=== PATIENT | female | born 1945 | race Caucasian/White ===

== ENCOUNTER 2018-02-16 11:59 | Emergency (ER) | payer MEDICARE ==
[2018-02-16] MEDS ORDERED: Sodium Chloride 0.9% 10 ML Syringe FLUSH PRN (13:16)
[2018-02-16] MEDS ORDERED: Sodium Chloride 0.9% 1,000 ML IV ONE (13:16)
--- NOTE | 2018-02-16 13:29 | EDM.PDOC ---
ED HPI GENERAL MEDICAL PROBLEM - General Chief Complaint: Back Pain or Injury Stated Complaint: FALL/ BACK PAIN Time Seen by Provider: 02/16/18 12:45 Source of Information: Reports: Patient History Limitations: Reports: No Limitations - History of Present Illness INITIAL COMMENTS - FREE TEXT/NARRATIVE: Patient is a 72-year-old female who states she fell 4 days ago while drinking water in her kitchen. States she briefly closed her eyes and lost her balance. She fell backwards onto the floor injuring her back. She states their was no loss of consciousness. No neck/head pain. Pain to her back is located to the lumbar spine. Pain is localized with no radiation. No numbness or tingling distally. No incontinence to urine or stool. No sensory changes noted. Patient ambulated into the ED on her own accord. Pain has persisted with no relief. Patient does not recall all the medications she is currently on. She does have a history of hypertension, [place] with stent placement, pacemaker, chronic constipation, and diabetes. She has no history of blood clots to legs or lungs. She does have a history of peripheral vascular disease with stents placement as well. She denies any sob, headache, midline cervical neck pain, vision changes, slurred speech, difficult swallowing, weakness discrepancy to the upper and lower extremities, sensory deficits, increased swelling to her lower extremities , shortness of breath, chest pain, dark tarry stools, dysuria, fever, or any additional complaints. She states she is chronically constipated and has not had a bowel movement for 2 weeks. Lower Back Pain Score (Numeric/FACES): 10 - Related Data Allergies Allergy/AdvReac Type Severity Reaction Status Date / Time No Known Allergies Allergy Verified 02/16/18 12:28 Home Meds: Home Meds Cephalexin [Keflex] 500 mg PO QID #28 capsule 02/16/18 [Rx] Clopidogrel [Plavix] 75 mg PO DAILY 02/16/18 [History] Gabapentin [Neurontin] 300 mg PO TID PRN 02/16/18 [History] Lisinopril 5 mg PO DAILY 02/16/18 [History] Potassium Chloride 10 meq PO DAILY 02/16/18 [History] atorvaSTATin Calcium [Lipitor] 20 mg PO DAILY 02/16/18 [History] glyBURIDE [Glyburide] 5 mg PO BID #30 tablet 09/22/18 [Rx] metFORMIN [Glucophage XR] 500 mg PO BID #60 tab.er 02/16/18 [Rx] oxyCODONE HCl/Acetaminophen [Percocet 5-325 mg Tablet] 1 each PO QID PRN #20 tablet 02/16/18 [Rx] Past Medical History Cardiovascular History: Reports: High Cholesterol, Hypertension, [place], Pacemaker, Stents Gastrointestinal History: Reports: Chronic Constipation Genitourinary History: Reports: UTI, Recurrent Musculoskeletal History: Reports: Arthritis, Back Pain, Chronic Psychiatric History: Reports: Depression - Past Surgical History GI Surgical History: Reports: Cholecystectomy Musculoskeletal Surgical History: Reports: ORIF Other Musculoskeletal Surgeries/Procedures:: left hip Social & Family History - Tobacco Use Smoking Status *Q: Former Smoker Years of Tobacco use: 50 Used Tobacco, but Quit: Yes Month/Year Tobacco Last Used: 4 days - Caffeine Use Caffeine Use: Reports: Coffee, Soda, Tea - Recreational Drug Use Recreational Drug Use: No ED ROS GENERAL - Review of Systems Review Of Systems: ROS reveals no pertinent complaints other than HPI. Constitutional: Reports: No Symptoms HEENT: Reports: No Symptoms Respiratory: Denies: Shortness of Breath, Wheezing, Pleuritic Chest Pain, Cough , Sputum, Hemoptysis Cardiovascular: Reports: Blood Pressure Problem, Lightheadedness, Syncope. Denies: Chest Pain, Claudication, Dyspnea on Exertion, Orthopnea, Palpitations, PND GI/Abdominal: Denies: Abdominal Pain, Black Stool, Bloody Stool, Constipation, Diarrhea, Decreased Appetite, Distension, Flatus, Hematemesis, Hematochezia, Melena, Nausea, Vomiting : Reports: No Symptoms Musculoskeletal: Reports: Other (Low back pain secondary to recent fall.) Skin: Reports: No Symptoms Neurological: Reports: Dizziness (With standing and closing her eyes.). Denies : Confusion, Headache, Numbness, Paresthesia, Pre-Existing Deficit, Seizure, Syncope, Tingling, Tremors, Trouble Speaking, Difficulty Walking, Weakness, Gait Disturbance Psychiatric: Reports: No Symptoms ED EXAM, DIZZINESS - Physical Exam Exam: See Below Exam Limited By: No Limitations General Appearance: Alert, WD/WN, Mild Distress Eye Exam: Bilateral Eye: EOMI, Nystagmus (None noted), PERRL, Vision Changes ( None noted per patient) Ears: Normal External Exam, Normal Canal Nose: Normal Inspection, Normal Mucosa, No Blood Throat/Mouth: Normal Inspection, Normal Oropharynx, Normal Voice, No Airway Compromise Head Exam: Atraumatic, Normocephalic Neck: Normal Inspection, Supple, Non-Tender, Full Range of Motion. No: Lymphadenopathy (L), Lymphadenopathy (R) Respiratory/Chest: No Respiratory Distress, Lungs Clear, Normal Breath Sounds, No Accessory Muscle Use, Chest Non-Tender Cardiovascular: Normal Peripheral Pulses, Regular Rate, Rhythm, No Murmur GI/Abdominal: Normal Bowel Sounds, Soft, Non-Tender, No Organomegaly, No Distention Rectal (Female) Exam: Heme + Stool (very light positive. ), Hemorrhoids. No: Black Stool, Bloody Stool, Decreased Rectal Tone, Fecal Impaction Neurological: Alert, Normal Mood/Affect, Normal Dorsiflexion, CN II-XII Intact, No Motor/Sensory Deficits, Oriented x 3 Back Exam: Normal Inspection, Vertebral Tenderness (Lumbar spine L4-S1.) Extremities: Normal Inspection, Normal Range of Motion, Non-Tender, No Pedal Edema, Normal Capillary Refill Psychiatric: Normal Affect, Normal Mood Skin Exam: Warm, Dry, Intact, Normal Color Course - Vital Signs Last Recorded V/S: Last Vital Signs Temp 96.4 F 02/16/18 12:23 Pulse 86 02/16/18 12:23 Resp 20 02/16/18 12:23 BP 86/59 L 02/16/18 12:23 Pulse Ox 95 02/16/18 12:23 Orthostatic Blood Pressure [ 112/74 Standing] Orthostatic Blood Pressure [ 151/82 Sitting] - Orders/Labs/Meds Orders: Active Orders 24 hr Category Date Time Status Blood Glucose Check, Bedside [RC] ONETIME Care 02/16/18 17:19 Active Communication Order [RC] STAT Care 02/16/18 15:45 Active EKG Documentation Completion [RC] STAT Care 02/16/18 13:16 Active Glucose [Blood Glucose Check, Bedside] [RC] ONETIME Care 02/16/18 15:42 Active Peripheral IV Care [RC] . DIRECTED Care 02/16/18 13:16 Active Head wo Cont [CT] Stat Exams 02/16/18 13:14 Taken Lumbar Spine Min 4V [CR] Stat Exams 02/16/18 13:14 Taken CULTURE URINE [RM] Stat Lab 02/16/18 15:05 Received Peripheral IV Insertion Adult [OM.PC] Routine Oth 02/16/18 13:16 Ordered Labs: Laboratory Tests 02/16/18 02/16/18 02/16/18 Range/Units 13:50 13:50 13:50 WBC 8.04 (3.98-10.04) K/mm3 RBC 4.90 (3.98-5.22) M/mm3 Hgb 14.3 (11.2-15.7) gm/L Hct 40.1 (34.1-44.9) % MCV 81.8 (79.4-94.8) fl MCH 29.2 (25.6-32.2) pg MCHC 35.7 H (32.2-35.5) g/dl RDW Std Deviation 36.7 (36.4-46.3) fL Plt Count 154 L (182-369) K/mm3 MPV 11.0 (9.4-12.3) fl Neutrophils % (Manual) 81 H (40-60) % Band Neutrophils % 0 (0-10) % Lymphocytes % (Manual) 17 L (20-40) % Atypical Lymphs % 0 % Monocytes % (Manual) 1 L (2-10) % Eosinophils % (Manual) 1 (0.7-5.8) % Basophils % (Manual) 0 L (0.1-1.2) Platelet Estimate Adequate Plt Morphology Comment Normal RBC Morph Comment Normal PT 10.5 (9.5-12.1) SECONDS INR 0.96 APTT 25 (24-31) SECONDS Sodium 131 L (136-145) mEq/L Potassium 3.4 L (3.5-5.1) mEq/L Chloride 93 L (98-107) mEq/L Carbon Dioxide 30 (21-32) mEq/L Anion Gap 11.4 (5-15) BUN 32 H (7-18) mg/dL Creatinine 1.2 H (0.55-1.02) mg/dL Est Cr Clr Drug Dosing 44.00 mL/min Estimated GFR (MDRD) 44 (>60) mL/min BUN/Creatinine Ratio 26.7 H (14-18) Glucose 415 H (80-115) mg/dL Calcium 9.0 (8.5-10.1) mg/dL Total Bilirubin 0.9 (0.2-1.0) mg/dL AST 23 (15-37) U/L ALT 25 (14-59) U/L Alkaline Phosphatase 100 (46-116) U/L Troponin I < 0.017 (0.00-0.056) ng/mL C-Reactive Protein 10.5 H* (<1.0) mg/dL Total Protein 7.3 (6.4-8.2) g/dl Albumin 3.4 (3.4-5.0) g/dl Globulin 3.9 gm/dL Albumin/Globulin Ratio 0.9 L (1-2) Urine Color (Yellow) Urine Appearance (Clear) Urine pH (5.0-8.0) Ur Specific [place] (1.005-1.030) Urine Protein (Negative) Urine Glucose (UA) (Negative) Urine Ketones (Negative) Urine Occult Blood (Negative) Urine Nitrite (Negative) Urine Bilirubin (Negative) Urine Urobilinogen (0.2-1.0) Ur Leukocyte Esterase (Negative) Urine RBC (0-5) /hpf Urine WBC (0-5) /hpf Ur Epithelial Cells (0-5) /hpf Urine Bacteria (FEW) /hpf Urine Mucus (FEW) /hpf Blood Type Gel Antibody Screen 02/16/18 02/16/18 02/16/18 Range/Units 13:50 15:05 17:10 WBC (3.98-10.04) K/mm3 RBC (3.98-5.22) M/mm3 Hgb (11.2-15.7) gm/L Hct (34.1-44.9) % MCV (79.4-94.8) fl MCH (25.6-32.2) pg MCHC (32.2-35.5) g/dl RDW Std Deviation (36.4-46.3) fL Plt Count (182-369) K/mm3 MPV (9.4-12.3) fl Neutrophils % (Manual) (40-60) % Band Neutrophils % (0-10) % Lymphocytes % (Manual) (20-40) % Atypical Lymphs % % Monocytes % (Manual) (2-10) % Eosinophils % (Manual) (0.7-5.8) % Basophils % (Manual) (0.1-1.2) Platelet Estimate Plt Morphology Comment RBC Morph Comment PT (9.5-12.1) SECONDS INR APTT (24-31) SECONDS Sodium (136-145) mEq/L Potassium (3.5-5.1) mEq/L Chloride (98-107) mEq/L Carbon Dioxide (21-32) mEq/L Anion Gap (5-15) BUN (7-18) mg/dL Creatinine (0.55-1.02) mg/dL Est Cr Clr Drug Dosing mL/min Estimated GFR (MDRD) (>60) mL/min BUN/Creatinine Ratio (14-18) Glucose 327 H (80-115) mg/dL Calcium (8.5-10.1) mg/dL Total Bilirubin (0.2-1.0) mg/dL AST (15-37) U/L ALT (14-59) U/L Alkaline Phosphatase (46-116) U/L Troponin I (0.00-0.056) ng/mL C-Reactive Protein (<1.0) mg/dL Total Protein (6.4-8.2) g/dl Albumin (3.4-5.0) g/dl Globulin gm/dL Albumin/Globulin Ratio (1-2) Urine Color Yellow (Yellow) Urine Appearance Slt cloudy H (Clear) Urine pH 6.0 (5.0-8.0) Ur Specific [place] 1.015 (1.005-1.030) Urine Protein Negative (Negative) Urine Glucose (UA) 2+ H (Negative) Urine Ketones Trace H (Negative) Urine Occult Blood 1+ H (Negative) Urine Nitrite Negative (Negative) Urine Bilirubin Negative (Negative) Urine Urobilinogen 0.2 (0.2-1.0) Ur Leukocyte Esterase Trace H (Negative) Urine RBC 0-5 (0-5) /hpf Urine WBC 20-30 H (0-5) /hpf Ur Epithelial Cells 0-5 (0-5) /hpf Urine Bacteria Many H (FEW) /hpf Urine Mucus Not seen (FEW) /hpf Blood Type A POSITIVE Gel Antibody Screen Negative Meds: Medications Discontinued Medications Generic Name Dose Route Start Last Admin Trade Name Freq PRN Reason Stop Dose Admin Cephalexin 500 mg 02/16/18 15:45 02/16/18 16:02 Keflex PO 02/16/18 15:46 500 mg ONETIME ONE Administration Hydromorphone HCl 0.25 mg 02/16/18 17:02 02/16/18 17:12 Dilaudid IVPUSH 02/16/18 17:03 0.25 mg ONETIME ONE Administration Sodium Chloride 1,000 mls @ 500 mls/hr 02/16/18 13:16 02/16/18 13:51 Normal Saline IV 02/16/18 15:15 500 mls/hr ONETIME ONE Administration Ceftriaxone Sodium 1 gm/ 100 mls @ 200 mls/hr 02/16/18 15:44 02/16/18 16:02 Sodium Chloride IV 02/16/18 16:13 200 mls/hr ONETIME ONE Administration Sodium Chloride 10 ml 02/16/18 13:16 02/16/18 13:52 Saline Flush FLUSH 10 ml ASDIRECTED PRN Administration Keep Vein Open - Re-Assessments/Exams Free Text/Narrative Re-Assessment/Exam: IV will be established with NS fluid bolus. Initial labs and studies will include: CBC, chem 14, CRP, coag study, troponin, type and screen, UA, chest x-ray one view, head CT without, lumbar spine x-ray, and EKG. Vital signs with sitting indicated blood pressure 81/66 with a heart rate 82. With laying flat blood pressure 154/73 with heart rate of 82. SPO2 90%. Stool Hemoccult test was faintly positive. Patient does have a pacemaker to the left chest. Unclear type and many leads are present. Pacemaker was placed at [facility]. Suspect type of pacemaker is [employer]. Will attempt to interrogate. EKG sinus rhythm at a rate of [address] changes noted. Head CT impression: There is parenchymal volume loss consistent with patient's age. Also demonstrated are mild white matter changes in the subcortical, central semiovale, and periventricular white matter consistent with age related small vessel microangiopathic gliosis. X-ray of the lumbar spine reveals some degenerative changes. No obvious compression fractures noted. Reviewed with Dr. Brizuela. Final interpretation is pending. Blood pressure rechecked by nursing staff. Sitting patient's blood pressures 151 /82. Standing blood pressure 112/74. She has no symptoms. Heart rate within normal limits. UA came back positive for infection. Urine culture obtained. Labs reviewed: platelets 154, hemoglobin 14.3, sodium 131, potassium 3.4, creatinine 1.2, glucose 4:15, troponin less than 0.017, CRP 10.5. I have ordered a bedside glucose following IV fluids. I ordered dilaudid 0.25mg IVP for pain. CT lumbar spine impression: Acute compression deformity of L2. No retrolisthesis fragments or extension of fracture into posterior vertebral line or posterior elements are seen. Compression deformity of L1 which appears to be old. Degenerative changes noted above which is most significant finding at L4 and L5 with moderate to severe central canal stenosis. Discussed labs and CT results with patient. Pain has improved with the above therapy. Lumbosacral brace has been ordered. Will wait for bedside glucose results prior to discharge. Blood sugar on discharge is 327. Discharge instructions as documented. The patient remained hemodynamically stable while under my care in the E.D. I discussed the concerning symptoms for which to return to the E.D. with the patient/family. The patient/family verbalized understanding. All questions were answered. . Departure - Departure Time of Disposition: 17:31 Disposition: Home, Self-Care 01 Condition: Good Clinical Impression: Intravascular volume depletion, Hypokalemia Hyperglycemia due to type 2 diabetes mellitus Qualifiers: Diabetes mellitus skilled nursing insulin use: without skilled nursing use Qualified Code(s ): E11.65 - Type 2 diabetes mellitus with hyperglycemia UTI (urinary tract infection) Qualifiers: Urinary tract infection type: acute cystitis Hematuria presence: with hematuria Qualified Code(s): N30.01 - Acute cystitis with hematuria Compression fracture of lumbar vertebra Qualifiers: Encounter type: initial encounter Lumbar vertebra fracture level: L2 Fracture type: closed Qualified Code(s): S32.020A - Wedge compression fracture of second lumbar vertebra, initial encounter for closed fracture - Discharge Information Prescriptions: Cephalexin [Keflex] 500 mg PO QID #28 capsule glyBURIDE [Glyburide] 5 mg PO BID #30 tablet metFORMIN [Glucophage XR] 500 mg PO BID #60 tab.er oxyCODONE HCl/Acetaminophen [Percocet 5-325 mg Tablet] 1 each PO QID PRN #20 tablet PRN Reason: Pain (Severe 7-10) Instructions: High-Fiber Diet, Vertebral Fracture, Type 2 Diabetes Mellitus, Diagnosis, Adult, Antibiotic Medicine, Adult, [id number], Hyperglycemia, Easy- to-Read, Urinary Tract Infection, Adult, Pain Medicine Instructions, Easy-to- Read, Dehydration, Elderly, [id number] Referrals: Alejo,David D, DO [Primary Care Provider] - Forms: ED Department Discharge Additional Instructions: Please restart all diabetes medications as prescribed. Check her blood sugars twice a day. Keep a log. In addition your quite dehydrated with admission to the ED. I believe this may be associated with taking Lasix 80 mg every day with poor oral intake of fluids, increased frequency of urination 2nd to infection and elevated blood sugars. I suggest decreasing lasix to 80 mg every other day. Take 1/2 of lasix in between days until sugars normalize. Ensure adequate fluid intake. In addition CT of the lumbar spine found that you have a acute fracture to L2. Thus where the lumbosacral brace as directed. May take Percocet 1 tab every 6 hours as needed for pain. Start taking MiraLAX one capful every day with juice along with other stool softeners. Please follow up with her PCP this coming week for reevaluation. I suggest make an appointment with to discuss kyphoplasty and or neurosurgeon of your choice. No driving with taking pain medications. Please return back to ED if you develop any new or worsening symptoms. Recheck of urine to be obtained after completion of antibiotic to ensure resolution of infection. In addition stool was faintly positive for blood. Please see PCP for reevaluation to ensure resolution and further workup as needed. - My Orders Last 24 Hours: My Active Orders 02/16/18 13:14 Head wo Cont [CT] Stat Lumbar Spine Min 4V [CR] Stat 02/16/18 13:16 EKG Documentation Completion [RC] STAT Peripheral IV Care [RC] . DIRECTED Peripheral IV Insertion Adult [OM.PC] Routine 02/16/18 15:05 CULTURE URINE [RM] Stat 02/16/18 15:42 Glucose [Blood Glucose Check, Bedside] [RC] ONETIME 02/16/18 15:45 Communication Order [RC] STAT 02/16/18 17:19 Blood Glucose Check, Bedside [RC] ONETIME - Assessment/Plan Last 24 Hours: My Active Orders 02/16/18 13:14 Head wo Cont [CT] Stat Lumbar Spine Min 4V [CR] Stat 02/16/18 13:16 EKG Documentation Completion [RC] STAT Peripheral IV Care [RC] . DIRECTED Peripheral IV Insertion Adult [OM.PC] Routine 02/16/18 15:05 CULTURE URINE [RM] Stat 02/16/18 15:42 Glucose [Blood Glucose Check, Bedside] [RC] ONETIME 02/16/18 15:45 Communication Order [RC] STAT 02/16/18 17:19 Blood Glucose Check, Bedside [RC] ONETIME
[2018-02-16] MEDS ORDERED: cefTRIAXone 1 GM in Sodium Chloride 0.9% 100 ML IV ONE (15:44)
[2018-02-16] MEDS ORDERED: Cephalexin 500 MG Cap PO ONE (15:45)
--- NOTE | 2018-02-16 16:58 | CT ---
Little earlier CT lumbar spine Technique: Multiple axial sections were obtained from above the T11-12 disc inferiorly to the L5-S1 disc. Reconstructed coronal and sagittal images were obtained. Comparison: No prior CT exam, previous plain film lumbar spine study performed earlier on the same day (1:21 PM). Findings: Superior compression deformity is seen within the endplate of L1 which appears to be old. Endplate concavities with compression deformity is noted of L2 which appears acute with acute fracture lines being seen within the vertebral body. No extension of fracture lines into the posterior vertebral line or within the posterior elements is seen. No retrolisthesis fragments are seen. Other vertebral body heights are maintained without additional fracture. Scattered degenerative apophyseal change is seen most severe at L4-5. Degenerative change at L4-5 causes mild spondylolisthesis. Diffuse circumferential disc bulging is seen throughout lumbar spine. Disc bulge at L4-5 in conjunction with thickening of ligamentum flavum causes moderate to severe central canal stenosis. No discrete neural foraminal stenosis is seen. Incidental vacuum phenomena noted within the sacroiliac joints. Impression: 1. Acute compression deformity of L2. No retrolisthesis fragments or extension of the fracture into the posterior vertebral line or posterior elements are seen. 2. Compression deformity of L1 which appears to be old. 3. Degenerative change as noted above which is most significant finding at L4-5 with moderate to severe central canal stenosis. Diagnostic code #3
[2018-02-16] MEDS ORDERED: HYDROmorphone 0.5 MG/0.5 ML SYRINGE IVPUSH ONE (17:02)
--- NOTE | 2018-02-18 07:15 | CT ---
Head CT Technique: Multiple axial sections through the brain were obtained. Intravenous contrast was not utilized. Comparison: No prior intracranial imaging. Findings: Ventricles along with basal cisterns and sulci over the convexities are moderately prominent. Mild diminished density is noted within portions of the periventricular white matter which is compatible with small vessel ischemic demyelination change. 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 No other abnormal parenchymal densities are seen. No evidence of intracranial hemorrhage. No midline shift or mass effect is seen. Bone window settings were reviewed which show the visualized sinuses to appear clear. No acute calvarial abnormality is appreciated. Impression: 1. Senescent change as noted above. No acute intracranial abnormality is identified. Diagnostic code #2 I agree with preliminary report from [facility], finalized on 02/16/18, 3:22 PM Central Time
--- NOTE | 2018-02-18 07:15 | CR ---
Lumbar spine: AP, lateral, oblique and coned-down lateral views centered to the lumbosacral junction were obtained. Comparison: No prior lumbar spine imaging. Compression deformity is seen primarily within the superior endplate of L1. This appears old on subsequent lumbar spine CT study. Compression deformity also noted within L2 involving both superior and inferior endplates. This is acute as seen on subsequent lumbar spine CT exam. Other vertebral body heights are maintained. Minimal spondylolisthesis is noted at L4-L5 due to degenerative apophyseal change. Degenerative change also noted within the L3-L4 and L5-S1 apophyseal joints. No abnormal subluxation is seen. Vascular calcification is noted within the aorta. Impression: 1. Old compression deformity of L1. Acute compression deformity of L2. 2. Degenerative change as noted above. Diagnostic code #3
== END 2018-02-16 18:10 | disposition home or self-care (01) ==
LOC: JD.ED 11:59
DX: S32.029A Unspecified fracture of second lumbar vertebra, initial encounter for closed fracture (principal); N30.01 Acute cystitis with hematuria; B96.20 Unspecified Escherichia coli [E. coli] as the cause of diseases classified elsewhere; E87.6 Hypokalemia; E86.9 Volume depletion, unspecified; E11.65 Type 2 diabetes mellitus with hyperglycemia; I10 Essential (primary) hypertension; I25.2 Old myocardial infarction; Z79.84 Long term (current) use of oral hypoglycemic drugs; Z79.899 Other long term (current) drug therapy; Z95.5 Presence of coronary angioplasty implant and graft; Z87.891 Personal history of nicotine dependence; W19.XXXA Unspecified fall, initial encounter
CPT/HCPCS: 36415; 70450; 72110; 72131; 80053; 81001; 82947; 84484; 85007; 85027; 85610; 85730; 86140; 86850; 86900; 86901; 87086; 87088; 87186; 93005; 96361; 96365; 96375; 99284; A9270; J0696; J1170; J7030; J7040; J7050; 99285-25

== ENCOUNTER 2018-07-12 14:43 | Inpatient (IN) | payer MEDICARE ==
[2018-07-12] MEDS ORDERED: Metoclopramide 10 MG/2 ML SDV IVPUSH ONE ×2 (15:21→17:31)
--- NOTE | 2018-07-12 15:25 | EDM.PDOC ---
ED HPI GENERAL MEDICAL PROBLEM - General Chief Complaint: Gastrointestinal Problem Stated Complaint: came by ambulance Time Seen by Provider: 07/12/18 15:20 Source of Information: Reports: Patient, EMS History Limitations: Reports: No Limitations - History of Present Illness INITIAL COMMENTS - FREE TEXT/NARRATIVE: 73-year-old female presents to the hospital per ambulance. Apparently she's been having recurrent syncopal episodes at home today. She states she's fallen down a couple times hard on her buttock. This is aggravated her chronic low back pain. She states however she can still walk if she had to. She does feel lightheaded and dizzy. She started having nausea and vomiting about 3 or 4 times so far today and 8-10 loose watery high-volume stool losses since damper fitter as well. Minimal abdominal cramping pain. She doesn't think she's been on any antibiotic some the last 2-3 weeks. She doesn't know anyone else around that is sick. She eats at home and therefore is unlikely to have foodborne illness. She is a diabetic and she states that her she did keep down her medicines this morning. Not sure what her blood sugars running at. He does not play she been running a fever but does feel chilled. Patient lives alone in [facility]. patient has a strong history of coronary disease having had myocardial infarction in the past. Has multiple coronary stents and a pacemaker. Onset: Today Onset Date: 07/12/18 (Patient states illness just started today she was okay yesterday.) Duration: Hour(s): Location: Reports: Abdomen (Recurrent nausea and vomiting 4 or 5 so far today mostly bilious without blood.), Other (Loose high-volume watery stool loss 8 or 9 today.) Quality: Reports: Other Severity: Moderate (Generalized severe weakness) Improves with: Reports: None, Medication Worsens with: Reports: Movement Context: Denies: Activity, Exercise, Lifting, Sick Contact, Trauma, Other Associated Symptoms: Reports: Cough, Loss of Appetite, Malaise, Nausea/Vomiting , Shortness of Breath, Other (Diarrhea today as well.). 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 (see below) (Discharge normal medications.) - Related Data Allergies Allergy/AdvReac Type Severity Reaction Status Date / Time No Known Allergies Allergy Verified 07/12/18 14:51 Home Meds: Home Meds Clopidogrel [Plavix] 75 mg PO DAILY 02/16/18 [History] Lisinopril 5 mg PO DAILY 02/16/18 [History] atorvaSTATin Calcium [Lipitor] 20 mg PO DAILY 02/16/18 [History] metFORMIN [Glucophage XR] 500 mg PO BID #60 tab.er 02/16/18 [Rx] Metoprolol Tartrate 25 mg PO DAILY 07/12/18 [History] glyBURIDE [Glyburide] 2.5 mg PO DAILY 07/12/18 [History] Past Medical History Cardiovascular History: Reports: High Cholesterol, Hypertension, CA, Pacemaker, PVD (Significant peripheral vascular disease.), Stents Gastrointestinal History: Reports: Chronic Constipation Genitourinary History: Reports: UTI, Recurrent Musculoskeletal History: Reports: Arthritis, Back Pain, Chronic Psychiatric History: Reports: Depression - Past Surgical History GI Surgical History: Reports: Cholecystectomy Musculoskeletal Surgical History: Reports: ORIF Other Musculoskeletal Surgeries/Procedures:: left hip Social & Family History - Tobacco Use Smoking Status *Q: Current Every Day Smoker Years of Tobacco use: 50 Packs/Tins Daily: 0.5 - Caffeine Use Caffeine Use: Reports: Coffee, Soda, Tea - Recreational Drug Use Recreational Drug Use: No - Living Situation & Occupation Living situation: Reports: , Alone Occupation: Retired ED ROS GENERAL - Review of Systems Review Of Systems: See Below Constitutional: Reports: Chills, Malaise, Weakness, Fatigue, Decreased Appetite. Denies: Fever HEENT: Reports: Glasses, Other Respiratory: Reports: Shortness of Breath, Cough. Denies: Wheezing (Not wearing glasses at this time.), Pleuritic Chest Pain, Sputum, Hemoptysis, Other Cardiovascular: Reports: Blood Pressure Problem, Dyspnea on Exertion, Edema, Lightheadedness, Palpitations. Denies: Chest Pain, Claudication (Pressure is markedly elevated at the time of initial assessment at 200/99), Orthopnea Endocrine: Reports: Fatigue GI/Abdominal: Reports: Constipation (8-9 times so far today loose large-volume watery stools.), Diarrhea, Decreased Appetite, Nausea, Vomiting (Has vomited about 4 times so far today mostly bilious.). Denies: Abdominal Pain, Anorexia, Black Stool (Denies any cramping with the diarrhea.), Bloody Stool, Difficulty Swallowing, Distension ( Usually has chronic constipation), Flatus, Hematemesis , Hematochezia, Melena : Reports: Frequency, Incontinence (Incontinent of urine and stool so far today.) Musculoskeletal: Reports: Back Pain (Generalized weakness chronic lobe a back pain which is been made a little bit worse and she fell twice today on her but due to weakness.), Other Skin: Reports: Bruising, Other (Erwin edema both lower extremities.) Neurological: Reports: Dizziness, Syncope (Apparently she passed out 3 or 4 times so far today but it sounds more like orthostatic hypotension fainting spells versus true syncopal events.), Difficulty Walking, Weakness (Chronically due to back pain). Denies: Confusion, Headache, Paresthesia, Tremors, Trouble Speaking Psychiatric: Reports: Depression Hematologic/Lymphatic: Reports: Easy Bleeding Immunologic: Reports: No Symptoms ED EXAM, GI/ABD - Physical Exam Exam: See Below Exam Limited By: No Limitations General Appearance: Alert, Other (Slightly pallid. Afebrile on exam infection feels quite cool to touch. She has a bit of a sunburn drawl.) Eyes: Bilateral: Pale Conjunctiva Ears: Normal TMs (Mildly pallid.) Throat/Mouth: Other Head: Atraumatic (Tongue is mildly dry and coated), Normocephalic Neck: Normal Inspection, Supple, Non-Tender, Full Range of Motion, Tender Lateral (Mild tenderness lateral neck bilaterally due to arthritis but no signs of trauma). No: Lymphadenopathy (L), Lymphadenopathy (R) Respiratory/Chest: No Respiratory Distress, Decreased Breath Sounds (Vessels are mildly diminished in both lower lung medrano.), Rales (Few rales bilaterally. ). No: Respiratory Distress, Wheezing Cardiovascular: Regular Rate, Rhythm (Sinus rhythm in the 90s on the monitor), No Murmur, No Rub. No: Normal Peripheral Pulses GI/Abdominal Exam: Non-Tender, No Organomegaly, No Distention, No Abnormal Bruit , No Mass, Pelvis Stable, Abnormal Bowel Sounds, Other (All sounds are hyperactive in all 4 quadrants. Mildly obese.) Back Exam: Other (She is able to sit up with some degree of pain in her lower back. On palpation there. Does not appear to be any localized pain to any of the spinous processes) Extremities: Pedal Edema (He has bilateral pedal edema. Some the right as compared to the left. He clinically has no pulses in her feet and has peripheral vascular disease. Feet are very cool to touch and dark purple in color. There are no open wounds in either extremity. There is an old bruise on the lateral aspect of her right proximal leg probably 5-7 days old she appears to have superficial), Other Neurological: Alert ( abrasion to the dorsal aspect of her right foot. No evidence of injury to the cortical or foot.), Oriented, CN II-XII Intact, Normal Cognition Skin Exam: Warm, Dry, Intact, Cool (Cool to touch.) EKG INTERPRETATION EKG Date: 07/12/18 Time: 15:55 Rhythm: NSR Rate (Beats/Min): 88 Nogal: LAD-Left Nogal Deviation (-53. Left anterior fascicular block pattern) P-Wave: Enlarged (Left atrial hypertrophy pattern) QRS: Other (Q waves V1 and V2 and V3 compatible with an old anteroseptal myocardial infarction. There is also Q waves in 3 and aVF compatible with an old inferior wall myocardial infarction left ventricular hypertrophy pattern) QT: Prolonged (QTC is moderately prolonged) EKG Interpretation Comments: Abnormal ECG Course - Vital Signs Last Recorded V/S: Last Vital Signs Temp 36.1 C 07/12/18 14:49 Pulse 95 07/12/18 14:49 Resp 11 L 07/12/18 14:49 BP 199/99 H 07/12/18 14:49 Pulse Ox 98 07/12/18 14:49 - Orders/Labs/Meds Orders: Active Orders 24 hr Category Date Time Status Blood Glucose Check, Bedside [RC] ONETIME Care 07/12/18 15:22 Active EKG Documentation Completion [RC] STAT Care 07/12/18 15:21 Active Donovan Catheter Insertion [Insert Urinary Catheter] [OM. Care 07/12/18 17:00 Ordered PC] Q24H Oxygen Therapy [RC] ASDIRECTED Care 07/12/18 15:39 Active Urinary Catheter Assessment [RC] ASDIRECTED Care 07/12/18 16:51 Active Chest 1V Frontal [CR] Stat Exams 07/12/18 15:21 Taken C DIFFICILE BY PCR W/NAP1 [MOLEC] Stat Lab 07/12/18 17:17 Ordered CULTURE BLOOD [BC] Stat Lab 07/12/18 15:45 Received CULTURE BLOOD [BC] Stat Lab 07/12/18 15:55 Received CULTURE STOOL + SHIGATOX [RM] Stat Lab 07/12/18 15:00 Received Sodium Chloride 0.9% [Normal Saline] 1,000 ml Med 07/12/18 15:30 Active IV ASDIRECTED Blood Culture x2 Reflex Set [OM.PC] Stat Oth 07/12/18 15:22 Ordered Medication Orders Sodium Chloride (Normal Saline) 1,000 mls @ 200 mls/hr IV ASDIRECTED LUCINDA Last Admin: 07/12/18 15:48 Dose: 200 mls/hr Labs: Laboratory Tests 07/12/18 07/12/18 07/12/18 Range/Units 15:10 15:10 15:10 WBC 15.10 H (3.98-10.04) K/mm3 RBC 5.29 H (3.98-5.22) M/mm3 Hgb 15.5 (11.2-15.7) gm/L Hct 45.9 H (34.1-44.9) % MCV 86.8 (79.4-94.8) fl MCH 29.3 (25.6-32.2) pg MCHC 33.8 (32.2-35.5) g/dl RDW Std Deviation 40.9 (36.4-46.3) fL Plt Count 248 (182-369) K/mm3 MPV 10.3 (9.4-12.3) fl Neutrophils % (Manual) 84 H (40-60) % Band Neutrophils % 1 (0-10) % Lymphocytes % (Manual) 12 L (20-40) % Atypical Lymphs % 0 % Monocytes % (Manual) 3 (2-10) % Eosinophils % (Manual) 0 L (0.7-5.8) % Basophils % (Manual) 0 L (0.1-1.2) Platelet Estimate Adequate RBC Morph Comment Normal ESR (0-20) mm/hr PT 10.4 (9.5-12.1) SECONDS INR 0.95 Sodium 140 (136-145) mEq/L Potassium 3.6 (3.5-5.1) mEq/L Chloride 98 (98-107) mEq/L Carbon Dioxide 31 (21-32) mEq/L Anion Gap 14.6 (5-15) BUN 17 (7-18) mg/dL Creatinine 0.7 (0.55-1.02) mg/dL Est Cr Clr Drug Dosing 74.36 mL/min Estimated GFR (MDRD) > 60 (>60) mL/min BUN/Creatinine Ratio 24.3 H (14-18) Glucose 167 H (83-115) mg/dL POC Glucose (83-110) mg/dL Calcium 9.9 (8.5-10.1) mg/dL Magnesium 1.6 L (1.8-2.4) mg/dl Total Bilirubin 0.5 (0.2-1.0) mg/dL AST 26 (15-37) U/L ALT 35 (14-59) U/L Alkaline Phosphatase 97 (46-116) U/L Troponin I < 0.017 (0.00-0.056) ng/mL C-Reactive Protein < 0.2 (<1.0) mg/dL NT-Pro-B Natriuret Pep (0-125) pg/mL Total Protein 8.5 H (6.4-8.2) g/dl Albumin 4.4 (3.4-5.0) g/dl Globulin 4.1 gm/dL Albumin/Globulin Ratio 1.1 (1-2) Urine Color (Yellow) Urine Appearance (Clear) Urine pH (5.0-8.0) Ur Specific [place] (1.005-1.030) Urine Protein (Negative) Urine Glucose (UA) (Negative) Urine Ketones (Negative) Urine Occult Blood (Negative) Urine Nitrite (Negative) Urine Bilirubin (Negative) Urine Urobilinogen (0.2-1.0) Ur Leukocyte Esterase (Negative) Urine RBC (0-5) /hpf Urine WBC (0-5) /hpf Ur Epithelial Cells (0-5) /hpf Urine Bacteria (FEW) /hpf Urine Mucus (FEW) /hpf Mycoplasma pneumon IgM (NEGATIVE) 07/12/18 07/12/18 07/12/18 Range/Units 15:10 15:10 15:10 WBC (3.98-10.04) K/mm3 RBC (3.98-5.22) M/mm3 Hgb (11.2-15.7) gm/L Hct (34.1-44.9) % MCV (79.4-94.8) fl MCH (25.6-32.2) pg MCHC (32.2-35.5) g/dl RDW Std Deviation (36.4-46.3) fL Plt Count (182-369) K/mm3 MPV (9.4-12.3) fl Neutrophils % (Manual) (40-60) % Band Neutrophils % (0-10) % Lymphocytes % (Manual) (20-40) % Atypical Lymphs % % Monocytes % (Manual) (2-10) % Eosinophils % (Manual) (0.7-5.8) % Basophils % (Manual) (0.1-1.2) Platelet Estimate RBC Morph Comment ESR 14 (0-20) mm/hr PT (9.5-12.1) SECONDS INR Sodium (136-145) mEq/L Potassium (3.5-5.1) mEq/L Chloride (98-107) mEq/L Carbon Dioxide (21-32) mEq/L Anion Gap (5-15) BUN (7-18) mg/dL Creatinine (0.55-1.02) mg/dL Est Cr Clr Drug Dosing mL/min Estimated GFR (MDRD) (>60) mL/min BUN/Creatinine Ratio (14-18) Glucose (83-115) mg/dL POC Glucose (83-110) mg/dL Calcium (8.5-10.1) mg/dL Magnesium (1.8-2.4) mg/dl Total Bilirubin (0.2-1.0) mg/dL AST (15-37) U/L ALT (14-59) U/L Alkaline Phosphatase (46-116) U/L Troponin I (0.00-0.056) ng/mL C-Reactive Protein (<1.0) mg/dL NT-Pro-B Natriuret Pep 999 H (0-125) pg/mL Total Protein (6.4-8.2) g/dl Albumin (3.4-5.0) g/dl Globulin gm/dL Albumin/Globulin Ratio (1-2) Urine Color (Yellow) Urine Appearance (Clear) Urine pH (5.0-8.0) Ur Specific [place] (1.005-1.030) Urine Protein (Negative) Urine Glucose (UA) (Negative) Urine Ketones (Negative) Urine Occult Blood (Negative) Urine Nitrite (Negative) Urine Bilirubin (Negative) Urine Urobilinogen (0.2-1.0) Ur Leukocyte Esterase (Negative) Urine RBC (0-5) /hpf Urine WBC (0-5) /hpf Ur Epithelial Cells (0-5) /hpf Urine Bacteria (FEW) /hpf Urine Mucus (FEW) /hpf Mycoplasma pneumon IgM Negative (NEGATIVE) 07/12/18 07/12/18 Range/Units 15:43 17:00 WBC (3.98-10.04) K/mm3 RBC (3.98-5.22) M/mm3 Hgb (11.2-15.7) gm/L Hct (34.1-44.9) % MCV (79.4-94.8) fl MCH (25.6-32.2) pg MCHC (32.2-35.5) g/dl RDW Std Deviation (36.4-46.3) fL Plt Count (182-369) K/mm3 MPV (9.4-12.3) fl Neutrophils % (Manual) (40-60) % Band Neutrophils % (0-10) % Lymphocytes % (Manual) (20-40) % Atypical Lymphs % % Monocytes % (Manual) (2-10) % Eosinophils % (Manual) (0.7-5.8) % Basophils % (Manual) (0.1-1.2) Platelet Estimate RBC Morph Comment ESR (0-20) mm/hr PT (9.5-12.1) SECONDS INR Sodium (136-145) mEq/L Potassium (3.5-5.1) mEq/L Chloride (98-107) mEq/L Carbon Dioxide (21-32) mEq/L Anion Gap (5-15) BUN (7-18) mg/dL Creatinine (0.55-1.02) mg/dL Est Cr Clr Drug Dosing mL/min Estimated GFR (MDRD) (>60) mL/min BUN/Creatinine Ratio (14-18) Glucose (83-115) mg/dL POC Glucose 161 H (83-110) mg/dL Calcium (8.5-10.1) mg/dL Magnesium (1.8-2.4) mg/dl Total Bilirubin (0.2-1.0) mg/dL AST (15-37) U/L ALT (14-59) U/L Alkaline Phosphatase (46-116) U/L Troponin I (0.00-0.056) ng/mL C-Reactive Protein (<1.0) mg/dL NT-Pro-B Natriuret Pep (0-125) pg/mL Total Protein (6.4-8.2) g/dl Albumin (3.4-5.0) g/dl Globulin gm/dL Albumin/Globulin Ratio (1-2) Urine Color Yellow (Yellow) Urine Appearance Clear (Clear) Urine pH 6.5 (5.0-8.0) Ur Specific [place] 1.025 (1.005-1.030) Urine Protein 2+ H (Negative) Urine Glucose (UA) Negative (Negative) Urine Ketones Trace H (Negative) Urine Occult Blood Trace-lysed H (Negative) Urine Nitrite Negative (Negative) Urine Bilirubin Negative (Negative) Urine Urobilinogen 0.2 (0.2-1.0) Ur Leukocyte Esterase Negative (Negative) Urine RBC 5-10 H (0-5) /hpf Urine WBC 0-5 (0-5) /hpf Ur Epithelial Cells 0-5 (0-5) /hpf Urine Bacteria Few (FEW) /hpf Urine Mucus Moderate H (FEW) /hpf Mycoplasma pneumon IgM (NEGATIVE) Meds: Medications Generic Name Dose Route Start Last Admin Trade Name Mandie PRN Reason Stop Dose Admin Sodium Chloride 1,000 mls @ 200 mls/hr 07/12/18 15:30 07/12/18 15:48 Normal Saline IV 200 mls/hr ASDIRECTED LUCINDA Administration Discontinued Medications Generic Name Dose Route Start Last Admin Trade Name Mandie PRN Reason Stop Dose Admin Iopamidol 100 ml 07/12/18 17:55 07/12/18 18:21 Isovue-300 (61%) IVPUSH 07/12/18 17:56 100 ml ONETIME ONE Administration Metoclopramide HCl 7.5 mg 07/12/18 15:21 07/12/18 15:48 Reglan IVPUSH 07/12/18 15:22 7.5 mg ONETIME ONE Administration Metoclopramide HCl 5 mg 07/12/18 17:31 07/12/18 17:47 Reglan IVPUSH 07/12/18 17:32 5 mg ONETIME ONE Administration - Radiology Interpretation Free Text/Narrative:: 73-year-old female presents to the ED per [place] ambulance. She really resides in [place], [place] in her own home. She is . Apparently she contracted a viral gastroenteritis with recurrent nausea and vomiting today 4 and then 7-8 loose large-volume stools today as well. She was incontinent of urine and stool. She has fallen 2 or 3 times a day which they say is syncopal versus orthostatic hypotension. States that she fell on her C2 or 3 times and did aggravate her low back pain but doesn't feel that she broke anything. She can still walk if she had to. A type II diabetic. She has severe peripheral vascular disease and history of severe coronary disease with numerous stents and previous MIs. Her blood pressure is elevated initially at 199/99 but now is down to 141/94 without treatment. History of congestive failure and COPD. She is in sinus rhythm in the 80s. Tongue is dry and coated. She's not sure what her blood sugars have been running. She states she did take her medications today and they did stay down. Plan septic workup to be done including cardiac markers. IV will be normal saline at 200 mils per hour until he can establish her fluid status. Given Reglan 7.5 mg IV for nausea vomiting relief. This will be collected for culture and C. difficile. - Re-Assessments/Exams Free Text/Narrative Re-Assessment/Exam: 07/12/18 16:21 Total white count is elevated at 15.10. She was 84% neutrophils and 1% band cells. Hemoglobin is 15.5 with hematocrit of 45.9. Platelet count is 248,000. PT is 10.4 with an INR of 0.95. Sodium 140 with potassium of 3.6. Chloride 98 with bicarbonate 31. Anion gap is 14.6. BUN is 17 with creatinine of 0.7. GFR remains greater than 60. BUN/creatinine ratio is elevated at 24.3. Glucose is 167. Bedside glucose was 161. Calcium is 9.9 with magnesium slightly low at 1.6. Total bilirubin is 0.5. AST is 26 with an ALT of 35. Alkaline phosphatase is normal at 97. Troponin I is less than 0.017. C-reactive protein is less than 0.2 BNP is 999. Total protein elevated at 8.5 with an albumin fraction of 4.4. Stool sample provided reveals no white cells present. 07/12/18 16:38 nurses are having trouble trying to catheterize this patient for urine sample. She is incontinent of urine and therefore no no urine appears to be available in the bladder. May have to leave a Donovan catheter in place to obtain a sample 07/12/18 16:51 I suspect the patient is incontinent of urine and that's why we can't obtain a sample. I will have a Donovan catheter placed until he collect appropriate sampling. 07/12/18 16:[address] Cooper--office assistant receptionist hospitalist- about this patient needing to coming to the hospital. She is asked for influenza A mycoplasma screen to be done which they will be. We're awaiting a urine sample to make sure we are not missing a urinary tract infection causing her current illness. 07/12/18 17:11 x-ray done portably shows minimal cardiomegaly. Pacemaker left upper anterior chest. Mild diffuse vascular congestion. No pneumonia and no infiltrates no pneumothorax 07/12/18 18:10 Analysis obtained by catheterization shows 2+ proteinuria trace of ketones and trace of occult blood. Negative nitrites 5-10 rbc's 0-5 WBCs and few bacteria reported. Influenza screen is reported to be negative. Her son is arrived in the ED and indicates that his mother recently moved in with him and his 4 children. He has been ill for a couple of days and she has been exhibiting some degree of delirium with altered levels of consciousness on and off for the last couple of days. This may well explain why Dr. Cooper had no ability to get a decent history from the patient. There is question whether she' s been taking her medication appropriately and she does have 2 bottles of Plavix. If she was taking excess amounts and falling she may have an intracranial hemorrhage and therefore CT of her head will be done at same time we CT her abdomen. 07/12/18 18:50: CT of her head reveals degenerative changes with small vessel ischemic changes in both basal ganglia with no evidence of lacunar infarction. There is no midline shift or intracranial bleeding. No outward signs of closed head injury. CT of the abdomen shows scattered air throughout the bowel with a few diverticula present with no active diverticulitis. The liver appears to be within normal limits as does the pancreas. Kidneys are mildly atrophic spleen appears to be within normal limits. The left adrenal gland contains a mass measuring 3.1 cm which is nonspecific right adrenal gland is unremarkable. Show symmetric contrast enhancement left kidney is slightly malrotated with anterior pointing renal pelvis which is a normal variation. Diffuse atherosclerotic as patient is seen within the aorta and iliac vessels without aneurysmal dilatation. Surgical clicks clips are seen from prior cholecystectomy. No retroperitoneal adenopathy or mesenteric abnormalities are identified no pelvic mass or adenopathy noted. Donovan catheter appreciated within the bladder. Orthopedic hardware seen within the left hip causing artifact in the pelvis. Case therefore discussed with Dr. Cooper and she will see the patient in the ED with a view to admission to the hospital. At this time we are considering admission to the intensive care unit since she seems to be exhibiting signs symptoms of acute delirium with altered level mental status which comes and goes. Clear as there is no significant metabolic abnormalities. Her blood sugars have remained in the 130s to 160s. He continues to have diarrhea stool and Donovan catheter was therefore left in the bladder. 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 insulin use: without fci use Diabetes mellitus complication status: with circulatory complication Leukocytosis, unspecified Qualifiers: Leukocytosis type: unspecified Qualified Code(s): D72.829 - Elevated white blood cell count, unspecified - Discharge Information *PRESCRIPTION DRUG MONITORING PROGRAM REVIEWED*: Not Applicable *COPY OF PRESCRIPTION DRUG MONITORING REPORT IN PATIENT YINA: Not Applicable Referrals: PCP,Unknown [Ordering Only Provider] - Forms: ED Department Discharge - My Orders Last 24 Hours: My Active Orders 07/12/18 15:00 CULTURE STOOL + SHIGATOX [RM] Stat 07/12/18 15:21 EKG Documentation Completion [RC] STAT Chest 1V Frontal [CR] Stat 07/12/18 15:22 Blood Glucose Check, Bedside [RC] ONETIME Blood Culture x2 Reflex Set [OM.PC] Stat 07/12/18 15:30 Sodium Chloride 0.9% [Normal Saline] 1,000 ml IV ASDIRECTED 07/12/18 15:39 Oxygen Therapy [RC] ASDIRECTED 07/12/18 15:45 CULTURE BLOOD [BC] Stat 07/12/18 15:55 CULTURE BLOOD [BC] Stat 07/12/18 16:51 Urinary Catheter Assessment [RC] ASDIRECTED 07/12/18 17:00 Donovan Catheter Insertion [Insert Urinary Catheter] [OM.PC] Q24H 07/12/18 17:17 C DIFFICILE BY PCR W/NAP1 [MOLEC] Stat - Assessment/Plan Last 24 Hours: My Active Orders 07/12/18 15:00 CULTURE STOOL + SHIGATOX [RM] Stat 07/12/18 15:21 EKG Documentation Completion [RC] STAT Chest 1V Frontal [CR] Stat 07/12/18 15:22 Blood Glucose Check, Bedside [RC] ONETIME Blood Culture x2 Reflex Set [OM.PC] Stat 07/12/18 15:30 Sodium Chloride 0.9% [Normal Saline] 1,000 ml IV ASDIRECTED 07/12/18 15:39 Oxygen Therapy [RC] ASDIRECTED 07/12/18 15:45 CULTURE BLOOD [BC] Stat 07/12/18 15:55 CULTURE BLOOD [BC] Stat 07/12/18 16:51 Urinary Catheter Assessment [RC] ASDIRECTED 07/12/18 17:00 Donovan Catheter Insertion [Insert Urinary Catheter] [OM.PC] Q24H 07/12/18 17:17 C DIFFICILE BY PCR W/NAP1 [MOLEC] Stat
[2018-07-12] MEDS ORDERED: Sodium Chloride 0.9% 1,000 ML IV SCH (15:30)
[2018-07-12] MEDS ORDERED: Iopamidol 612 MG/ML 100 ML Bottle IVPUSH ONE (17:55)
--- NOTE | 2018-07-12 18:52 | CT ---
Head CT Technique: Multiple axial sections through the brain were obtained. Intravenous was not utilized. Comparison: Prior head CT study of 02/16/18. Findings: Ventricles along with basal cisterns and sulci over the convexities are moderately prominent. Mild diminished density is noted within portions of the periventricular white matter compatible with small vessel ischemic demyelination change. 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 No other abnormal parenchymal densities are seen. No evidence of intracranial hemorrhage. No midline shift or mass effect is seen. Slight mucosal thickening is seen within the inferior left mastoid sinuses which is felt to be chronic. No acute calvarial abnormality is seen. Impression: 1. Senescent change and other incidental findings. Nothing acute is appreciated on noncontrast head CT exam. Diagnostic code #2
--- NOTE | 2018-07-12 19:18 | CT ---
CT abdomen and pelvis Technique: Multiple axial sections were obtained from above the dome of the diaphragm inferiorly through the pubic symphysis. Intravenous contrast was utilized. No oral contrast has been given. Delayed images were obtained through the bladder. Comparison: No prior abdominal or pelvic CT exam is available. Findings: Small portion of the visualized lung bases are clear. Liver contains no focal parenchymal abnormality. Spleen appears within normal limits. Left adrenal gland mass is seen measuring 3.1 cm which is nonspecific. Right adrenal gland is unremarkable. Kidneys show symmetric contrast enhancement. 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 Diffuse atherosclerotic calcification is seen within the aorta and iliac vessels without aneurysm. Surgical clips are seen from prior cholecystectomy. Pancreas shows no discrete abnormality. No retroperitoneal adenopathy or mesenteric abnormalities are seen. No pelvic mass or adenopathy is seen. Donovan catheter is noted within the bladder. Orthopedic hardware is seen with the left hip causing artifact. Delayed images shows contrast within the bladder. Bone window settings were reviewed which shows a moderately severe compression deformity of L2 and mild compression deformity of L1 and L5. These are most likely old. Scattered degenerative change is also seen. Impression: 1. Left adrenal mass. This is nonspecific for adenoma or malignant lesion but is most likely benign. MRI could be considered to further evaluate if clinically indicated. 2. Other incidental findings. Nothing acute is otherwise seen. Diagnostic code #3
--- NOTE | 2018-07-12 20:08 | PCM.HP ---
H&P History of Present Illness - General Date of Service: 07/12/18 Admit Problem/Dx: Admission Diagnosis/Problem Admission Diagnosis/Problem Gastroenteritis Source of Information: EMS, Provider History Limitations: Reports: Altered Mental Status - History of Present Illness Initial Comments - Free Text/Narative: 73 year old female was unable to provide history to the hospitalist service, she was reportedly having syncopal spells, duration is unknown. Loose stool, frequent as often as 8-10 per day was reported to the ED provider. Additionally N/V was also occurring. Fever./chills are unknown. The patient's genitals were covered with fecal matter, there is apparent stool and urine incontinence. The events mentioned were per the ED provider; the hospitalist service was able to speak to EMS prior to admission on the state of the home during the patient's assessment. The patient is living with a son, the duration is unknown. No apparent source of the diarrhea has been found. When the patient was questioned by the hospitalsit service no information was forthcoming. An EMS garage door service technician stated that the house where she was picked up was full of stool and vomit. The patient had been living in [place], [place]. The patient was unable to provide additional information. Onset of Symptoms: Reports: Unknown/Unsure Duration of Symptoms: Reports: Day(s):, Getting Worse Location: Reports: Generalized Improves with: Reports: Medication Worsens with: Reports: None Associated Symptoms: Reports: Confusion, Loss of Appetite, Malaise, Nausea/ Vomiting, Weakness Headache Pain Score (Numeric/FACES): 3 - Related Data Allergies/Adverse Reactions: Allergies Allergy/AdvReac Type Severity Reaction Status Date / Time No Known Allergies Allergy Verified 07/12/18 23:40 Home Medications: Home Meds Clopidogrel [Plavix] 75 mg PO DAILY 02/16/18 [History] Lisinopril 5 mg PO DAILY 02/16/18 [History] atorvaSTATin Calcium [Lipitor] 20 mg PO DAILY 02/16/18 [History] metFORMIN [Glucophage XR] 500 mg PO BID #60 tab.er 02/16/18 [Rx] Metoprolol Tartrate 25 mg PO DAILY 07/12/18 [History] glyBURIDE [Glyburide] 2.5 mg PO DAILY 07/12/18 [History] Past Medical History Cardiovascular History: Reports: High Cholesterol, Hypertension, GA, Pacemaker, PVD (Significant peripheral vascular disease.), Stents Gastrointestinal History: Reports: Chronic Constipation Genitourinary History: Reports: UTI, Recurrent Musculoskeletal History: Reports: Arthritis, Back Pain, Chronic Psychiatric History: Reports: Depression - Past Surgical History GI Surgical History: Reports: Cholecystectomy Musculoskeletal Surgical History: Reports: ORIF Other Musculoskeletal Surgeries/Procedures:: left hip Social & Family History - Tobacco Use Smoking Status *Q: Current Every Day Smoker Years of Tobacco use: 50 Packs/Tins Daily: 0.5 - Caffeine Use Caffeine Use: Reports: Coffee, Soda, Tea - Recreational Drug Use Recreational Drug Use: No - Living Situation & Occupation Living situation: Reports: , Alone Occupation: Retired H&P Review of Systems - Review of Systems: Review Of Systems: See Below General: Reports: Malaise, Weakness, Fatigue, Decreased Appetite HEENT: Reports: No Symptoms Pulmonary: Reports: No Symptoms Cardiovascular: Reports: No Symptoms Gastrointestinal: Reports: No Symptoms Genitourinary: Reports: No Symptoms Musculoskeletal: Reports: No Symptoms Skin: Reports: No Symptoms Psychiatric: Reports: Confusion Neurological: Reports: Confusion Hematologic/Lymphatic: Reports: No Symptoms Immunologic: Reports: No Symptoms Exam - Exam Exam: See Below - Vital Signs Vital Signs: Last Vital Signs Temp 36.1 C 07/12/18 14:49 Pulse 95 07/12/18 14:49 Resp 11 L 07/12/18 14:49 BP 199/99 H 07/12/18 14:49 Pulse Ox 98 07/12/18 14:49 Weight: 78.471 kg - Exam Quality Assessment: Supplemental Oxygen General: Alert, Oriented HEENT: Conjunctiva Clear, Nares Patent, Normal Nasal Septum, Pupils Equal, Pupils Reactive, PERRLA Neck: Trachea Midline Lungs: Normal Respiratory Effort Cardiovascular: Regular Rate GI/Abdominal Exam: Normal Bowel Sounds, Soft, Non-Tender, No Organomegaly, No Distention (Female) Exam: Deferred Rectal (Female) Exam: Deferred Back Exam: Normal Inspection Extremities: Normal Inspection, Non-Tender, Slow Capillary Refill Skin: Warm Neurological: Cranial Nerves Intact Neuro Extensive - Motor, Sensory, Reflexes: CN II-XII Intact Psychiatric: Alert - Patient Data Lab Results Last 24 hrs: Laboratory Results - last 24 hr 07/12/18 07/12/18 07/12/18 Range/Units 15:10 15:10 15:10 WBC 15.10 H (3.98-10.04) K/mm3 RBC 5.29 H (3.98-5.22) M/mm3 Hgb 15.5 (11.2-15.7) gm/L Hct 45.9 H (34.1-44.9) % MCV 86.8 (79.4-94.8) fl MCH 29.3 (25.6-32.2) pg MCHC 33.8 (32.2-35.5) g/dl RDW Std Deviation 40.9 (36.4-46.3) fL Plt Count 248 (182-369) K/mm3 MPV 10.3 (9.4-12.3) fl Neutrophils % (Manual) 84 H (40-60) % Band Neutrophils % 1 (0-10) % Lymphocytes % (Manual) 12 L (20-40) % Atypical Lymphs % 0 % Monocytes % (Manual) 3 (2-10) % Eosinophils % (Manual) 0 L (0.7-5.8) % Basophils % (Manual) 0 L (0.1-1.2) Platelet Estimate Adequate RBC Morph Comment Normal ESR (0-20) mm/hr PT 10.4 (9.5-12.1) SECONDS INR 0.95 Sodium 140 (136-145) mEq/L Potassium 3.6 (3.5-5.1) mEq/L Chloride 98 (98-107) mEq/L Carbon Dioxide 31 (21-32) mEq/L Anion Gap 14.6 (5-15) BUN 17 (7-18) mg/dL Creatinine 0.7 (0.55-1.02) mg/dL Est Cr Clr Drug Dosing 74.36 mL/min Estimated GFR (MDRD) > 60 (>60) mL/min BUN/Creatinine Ratio 24.3 H (14-18) Glucose 167 H (83-115) mg/dL POC Glucose (83-110) mg/dL Calcium 9.9 (8.5-10.1) mg/dL Magnesium 1.6 L (1.8-2.4) mg/dl Total Bilirubin 0.5 (0.2-1.0) mg/dL AST 26 (15-37) U/L ALT 35 (14-59) U/L Alkaline Phosphatase 97 (46-116) U/L Troponin I < 0.017 (0.00-0.056) ng/mL C-Reactive Protein < 0.2 (<1.0) mg/dL NT-Pro-B Natriuret Pep (0-125) pg/mL Total Protein 8.5 H (6.4-8.2) g/dl Albumin 4.4 (3.4-5.0) g/dl Globulin 4.1 gm/dL Albumin/Globulin Ratio 1.1 (1-2) Urine Color (Yellow) Urine Appearance (Clear) Urine pH (5.0-8.0) Ur Specific [place] (1.005-1.030) Urine Protein (Negative) Urine Glucose (UA) (Negative) Urine Ketones (Negative) Urine Occult Blood (Negative) Urine Nitrite (Negative) Urine Bilirubin (Negative) Urine Urobilinogen (0.2-1.0) Ur Leukocyte Esterase (Negative) Urine RBC (0-5) /hpf Urine WBC (0-5) /hpf Ur Epithelial Cells (0-5) /hpf Urine Bacteria (FEW) /hpf Urine Mucus (FEW) /hpf Mycoplasma pneumon IgM (NEGATIVE) 07/12/18 07/12/18 07/12/18 Range/Units 15:10 15:10 15:10 WBC (3.98-10.04) K/mm3 RBC (3.98-5.22) M/mm3 Hgb (11.2-15.7) gm/L Hct (34.1-44.9) % MCV (79.4-94.8) fl MCH (25.6-32.2) pg MCHC (32.2-35.5) g/dl RDW Std Deviation (36.4-46.3) fL Plt Count (182-369) K/mm3 MPV (9.4-12.3) fl Neutrophils % (Manual) (40-60) % Band Neutrophils % (0-10) % Lymphocytes % (Manual) (20-40) % Atypical Lymphs % % Monocytes % (Manual) (2-10) % Eosinophils % (Manual) (0.7-5.8) % Basophils % (Manual) (0.1-1.2) Platelet Estimate RBC Morph Comment ESR 14 (0-20) mm/hr PT (9.5-12.1) SECONDS INR Sodium (136-145) mEq/L Potassium (3.5-5.1) mEq/L Chloride (98-107) mEq/L Carbon Dioxide (21-32) mEq/L Anion Gap (5-15) BUN (7-18) mg/dL Creatinine (0.55-1.02) mg/dL Est Cr Clr Drug Dosing mL/min Estimated GFR (MDRD) (>60) mL/min BUN/Creatinine Ratio (14-18) Glucose (83-115) mg/dL POC Glucose (83-110) mg/dL Calcium (8.5-10.1) mg/dL Magnesium (1.8-2.4) mg/dl Total Bilirubin (0.2-1.0) mg/dL AST (15-37) U/L ALT (14-59) U/L Alkaline Phosphatase (46-116) U/L Troponin I (0.00-0.056) ng/mL C-Reactive Protein (<1.0) mg/dL NT-Pro-B Natriuret Pep 999 H (0-125) pg/mL Total Protein (6.4-8.2) g/dl Albumin (3.4-5.0) g/dl Globulin gm/dL Albumin/Globulin Ratio (1-2) Urine Color (Yellow) Urine Appearance (Clear) Urine pH (5.0-8.0) Ur Specific [place] (1.005-1.030) Urine Protein (Negative) Urine Glucose (UA) (Negative) Urine Ketones (Negative) Urine Occult Blood (Negative) Urine Nitrite (Negative) Urine Bilirubin (Negative) Urine Urobilinogen (0.2-1.0) Ur Leukocyte Esterase (Negative) Urine RBC (0-5) /hpf Urine WBC (0-5) /hpf Ur Epithelial Cells (0-5) /hpf Urine Bacteria (FEW) /hpf Urine Mucus (FEW) /hpf Mycoplasma pneumon IgM Negative (NEGATIVE) 07/12/18 07/12/18 07/12/18 Range/Units 15:43 17:00 19:50 WBC (3.98-10.04) K/mm3 RBC (3.98-5.22) M/mm3 Hgb (11.2-15.7) gm/L Hct (34.1-44.9) % MCV (79.4-94.8) fl MCH (25.6-32.2) pg MCHC (32.2-35.5) g/dl RDW Std Deviation (36.4-46.3) fL Plt Count (182-369) K/mm3 MPV (9.4-12.3) fl Neutrophils % (Manual) (40-60) % Band Neutrophils % (0-10) % Lymphocytes % (Manual) (20-40) % Atypical Lymphs % % Monocytes % (Manual) (2-10) % Eosinophils % (Manual) (0.7-5.8) % Basophils % (Manual) (0.1-1.2) Platelet Estimate RBC Morph Comment ESR (0-20) mm/hr PT (9.5-12.1) SECONDS INR Sodium (136-145) mEq/L Potassium (3.5-5.1) mEq/L Chloride (98-107) mEq/L Carbon Dioxide (21-32) mEq/L Anion Gap (5-15) BUN (7-18) mg/dL Creatinine (0.55-1.02) mg/dL Est Cr Clr Drug Dosing mL/min Estimated GFR (MDRD) (>60) mL/min BUN/Creatinine Ratio (14-18) Glucose (83-115) mg/dL POC Glucose 161 H 136 H (83-110) mg/dL Calcium (8.5-10.1) mg/dL Magnesium (1.8-2.4) mg/dl Total Bilirubin (0.2-1.0) mg/dL AST (15-37) U/L ALT (14-59) U/L Alkaline Phosphatase (46-116) U/L Troponin I (0.00-0.056) ng/mL C-Reactive Protein (<1.0) mg/dL NT-Pro-B Natriuret Pep (0-125) pg/mL Total Protein (6.4-8.2) g/dl Albumin (3.4-5.0) g/dl Globulin gm/dL Albumin/Globulin Ratio (1-2) Urine Color Yellow (Yellow) Urine Appearance Clear (Clear) Urine pH 6.5 (5.0-8.0) Ur Specific [place] 1.025 (1.005-1.030) Urine Protein 2+ H (Negative) Urine Glucose (UA) Negative (Negative) Urine Ketones Trace H (Negative) Urine Occult Blood Trace-lysed H (Negative) Urine Nitrite Negative (Negative) Urine Bilirubin Negative (Negative) Urine Urobilinogen 0.2 (0.2-1.0) Ur Leukocyte Esterase Negative (Negative) Urine RBC 5-10 H (0-5) /hpf Urine WBC 0-5 (0-5) /hpf Ur Epithelial Cells 0-5 (0-5) /hpf Urine Bacteria Few (FEW) /hpf Urine Mucus Moderate H (FEW) /hpf Mycoplasma pneumon IgM (NEGATIVE) Result Diagrams: 07/14/18 05:22 07/14/18 05:22 Jayant Results Last 24 hrs: Microbiology 07/12/18 17:00 Influenza Type A Antigen Screen - Final Nasal, Right NEGATIVE INFLUENZA A VIRUS AG Influenza Type B Antigen Screen - Final NEGATIVE INFLUENZA B VIRUS AG 07/12/18 15:00 Stool for WBCs - Final Stool / Feces NO WBC SEEN - Problem List (1) Acute gastroenteritis SNOMED Code(s): 82106304 ICD Code: K52.9 - NONINFECTIVE GASTROENTERITIS AND COLITIS, UNSPECIFIED Status: Acute Current Visit: Yes (2) Acute hypoactive delirium due to multiple etiologies SNOMED Code(s): 884508835, 901625356, 876759256 ICD Code: F05 - DELIRIUM DUE TO KNOWN PHYSIOLOGICAL CONDITION Status: Acute Current Visit: Yes (3) Intravascular volume depletion SNOMED Code(s): 02942364, 94351469 ICD Code: E86.1 - HYPOVOLEMIA Status: Acute Current Visit: Yes (4) Leukocytosis, unspecified SNOMED Code(s): 785823999, 449253250 ICD Code: D72.829 - ELEVATED WHITE BLOOD CELL COUNT, UNSPECIFIED Status: Acute Current Visit: Yes Qualifiers: Leukocytosis type: unspecified Qualified Code(s): D72.829 - Elevated white blood cell count, unspecified (5) Type 2 diabetes mellitus SNOMED Code(s): 50768626 ICD Code: E11.9 - TYPE 2 DIABETES MELLITUS WITHOUT COMPLICATIONS Status: Acute Current Visit: Yes Qualifiers: Diabetes mellitus scraper hand insulin use: without correction use Diabetes mellitus complication status: with circulatory complication Problem List Initiated/Reviewed/Updated: Yes Orders Last 24hrs: Active Orders 24 hr Category Date Time Status Admission Status [Patient Status] [ADT] Routine ADT 07/12/18 19:50 Active Patient Status [ADT] Routine ADT 07/12/18 19:43 Active Blood Glucose Check, Bedside [RC] ONETIME Care 07/12/18 15:22 Active EKG Documentation Completion [RC] STAT Care 07/12/18 15:21 Active Donovan Catheter Insertion [Insert Urinary Catheter] [OM. Care 07/12/18 17:00 Ordered PC] Q24H Oxygen Therapy [RC] ASDIRECTED Care 07/12/18 15:39 Active Urinary Catheter Assessment [RC] ASDIRECTED Care 07/12/18 16:51 Active Chest 1V Frontal [CR] Stat Exams 07/12/18 15:21 Taken C DIFFICILE BY PCR W/NAP1 [MOLEC] Stat Lab 07/12/18 17:17 Ordered CULTURE BLOOD [BC] Stat Lab 07/12/18 15:45 Received CULTURE BLOOD [BC] Stat Lab 07/12/18 15:55 Received CULTURE STOOL + SHIGATOX [RM] Stat Lab 07/12/18 15:00 Received Sodium Chloride 0.9% [Normal Saline] 1,000 ml Med 07/12/18 15:30 Active IV ASDIRECTED Blood Culture x2 Reflex Set [OM.PC] Stat Oth 07/12/18 15:22 Ordered Medication Orders Sodium Chloride (Normal Saline) 1,000 mls @ 200 mls/hr IV ASDIRECTED [facility] Last Admin: 07/12/18 15:48 Dose: 200 mls/hr Assessment/Plan Comment:: Impression: Query home environment Query acute gastroenteritis Confusion/delirium, NOS Dizziness/presyncopal History of CAD with GA changes on ECG CHF, BNP 999 Chronic PPM PVD CAD Diabetes mellitus type 2 Plan: Resp infectious work up Ischemic work up Droplet isolation Stool studies Orthostatics CVA work up as indicated; neuro checks SW consult re: home environment; 960 if needed. Consult PT/OT/CM-SW EMR/clinic records DVT/GI prophylaxis
[2018-07-12] MEDS ORDERED: 50% Dextrose in Water 50 ML Syringe IVPUSH PRN (20:20)
[2018-07-12] MEDS ORDERED: LORazepam 2 MG/ML SDV IVPUSH PRN (20:21)
[2018-07-12] MEDS ORDERED: Magnesium Sulfate/Water 4 GM in Premix Bag 1 BAG IV ONE (20:31)
[2018-07-12] MEDS: Dextrose 5%-0.9% NaCl 1,000 ML IV SCH (22:04)
[2018-07-12] MEDS: Metoprolol Tartrate 25 MG Tab PO SCH (22:12)
[2018-07-12] MEDS: Insulin Lispro 100 UNIT/ML 10 ML VIAL SUBCUT SCH (22:13)
[2018-07-13] MEDS ORDERED: Furosemide 20 MG/2 ML VIAL IVPUSH ONE (03:00)
[2018-07-13 06:04] LABS: HEMOGLOBIN A1C 7.3 % (4.50-6.20)
[2018-07-13] MEDS: Metoprolol Tartrate 25 MG Tab PO SCH ×2 (08:02→20:46)
[2018-07-13] MEDS: Insulin Lispro 100 UNIT/ML 10 ML VIAL SUBCUT SCH ×4 (08:04→23:06)
[2018-07-13] MEDS: Clopidogrel 75 MG Tab PO SCH (08:04)
[2018-07-13] MEDS ORDERED: Simvastatin 20 MG Tab PO SCH (09:00)
[2018-07-13] MEDS: Dextrose 5%-0.9% NaCl 1,000 ML IV SCH (11:55)
--- NOTE | 2018-07-13 14:55 | PCM.PN ---
- General Info Date of Service: 07/13/18 Subjective Update: donkey doctor spoke to the patient and her son today, they both want her to move into a SNF. Her son reported one large BM, and several mounds of vomit. Tried to notify SW without success to expedite paperwork for SNF. Dizziness/ lightheadedness, will obtain CTA head/neck. Swallow eval was WNL. Functional Status: Reports: Urinating - Review of Systems General: Reports: Weakness HEENT: Reports: No Symptoms Pulmonary: Reports: No Symptoms Cardiovascular: Reports: Lightheadedness Gastrointestinal: Reports: No Symptoms Genitourinary: Reports: No Symptoms Musculoskeletal: Reports: No Symptoms Skin: Reports: No Symptoms Neurological: Reports: No Symptoms Psychiatric: Reports: No Symptoms - Patient Data Vitals - Most Recent: Last Vital Signs Temp 36.3 C 07/13/18 11:24 Pulse 72 07/13/18 11:24 Resp 18 07/13/18 11:24 BP 154/83 H 07/13/18 11:24 Pulse Ox 95 07/13/18 11:24 Orthostatic Blood Pressure [ 154/63 Supine] Orthostatic Blood Pressure [ 85/62 Standing] Orthostatic Blood Pressure [ 102/84 Sitting] Weight - Most Recent: 76.702 kg I&O - Last 24 Hours: Intake & Output 07/12/18 07/13/18 07/13/18 22:59 06:59 14:59 Intake Total 541 Output Total 135 1310 600 Balance -295 -612 -600 Lab Results Last 24 Hours: Laboratory Results - last 24 hr 07/12/18 07/12/18 07/12/18 Range/Units 15:00 15:10 15:10 WBC 15.10 H (3.98-10.04) K/mm3 RBC 5.29 H (3.98-5.22) M/mm3 Hgb 15.5 (11.2-15.7) gm/L Hct 45.9 H (34.1-44.9) % MCV 86.8 (79.4-94.8) fl MCH 29.3 (25.6-32.2) pg MCHC 33.8 (32.2-35.5) g/dl RDW Std Deviation 40.9 (36.4-46.3) fL Plt Count 248 (182-369) K/mm3 MPV 10.3 (9.4-12.3) fl Neut % (Auto) (34.0-71.1) % Lymph % (Auto) (19.3-51.7) % [place] % (Auto) (4.7-12.5) % Eos % (Auto) (0.7-5.8) Baso % (Auto) (0.1-1.2) % Neut # (Auto) (1.56-6.13) K/mm3 Lymph # (Auto) (1.18-3.74) K/mm3 [place] # (Auto) (0.24-0.36) K/mm3 Eos # (Auto) (0.04-0.36) K/mm3 Baso # (Auto) (0.01-0.08) K/mm3 Neutrophils % (Manual) 84 H (40-60) % Band Neutrophils % 1 (0-10) % Lymphocytes % (Manual) 12 L (20-40) % Atypical Lymphs % 0 % Monocytes % (Manual) 3 (2-10) % Eosinophils % (Manual) 0 L (0.7-5.8) % Basophils % (Manual) 0 L (0.1-1.2) Platelet Estimate Adequate RBC Morph Comment Normal ESR (0-20) mm/hr PT 10.4 (9.5-12.1) SECONDS INR 0.95 Sodium (136-145) mEq/L Potassium (3.5-5.1) mEq/L Chloride (98-107) mEq/L Carbon Dioxide (21-32) mEq/L Anion Gap (5-15) BUN (7-18) mg/dL Creatinine (0.55-1.02) mg/dL Est Cr Clr Drug Dosing mL/min Estimated GFR (MDRD) (>60) mL/min BUN/Creatinine Ratio (14-18) Glucose (83-115) mg/dL POC Glucose (83-110) mg/dL Hemoglobin A1c (4.50-6.20) % Lactic Acid (0.4-2.0) mmol/L Calcium (8.5-10.1) mg/dL Magnesium (1.8-2.4) mg/dl Total Bilirubin (0.2-1.0) mg/dL AST (15-37) U/L ALT (14-59) U/L Alkaline Phosphatase (46-116) U/L Troponin I (0.00-0.056) ng/mL C-Reactive Protein (<1.0) mg/dL NT-Pro-B Natriuret Pep (0-125) pg/mL Total Protein (6.4-8.2) g/dl Albumin (3.4-5.0) g/dl Globulin gm/dL Albumin/Globulin Ratio (1-2) Triglycerides (<150) mg/dL Cholesterol (<200) mg/dL LDL Cholesterol Direct (<100) mg/dL HDL Cholesterol (40-59) mg/dL TSH 3rd Generation (0.358-3.74) uIU/mL Urine Color (Yellow) Urine Appearance (Clear) Urine pH (5.0-8.0) Ur Specific [place] (1.005-1.030) Urine Protein (Negative) Urine Glucose (UA) (Negative) Urine Ketones (Negative) Urine Occult Blood (Negative) Urine Nitrite (Negative) Urine Bilirubin (Negative) Urine Urobilinogen (0.2-1.0) Ur Leukocyte Esterase (Negative) Urine RBC (0-5) /hpf Urine WBC (0-5) /hpf Ur Epithelial Cells (0-5) /hpf Urine Bacteria (FEW) /hpf Urine Mucus (FEW) /hpf Urine Opiates Screen (UDONDM=712) Ur Buprenorphine Scrn (CUTOFF=10) Ur Oxycodone Screen (LHB4XY=301) Urine Methadone Screen (TLNYIO=650) Ur Propoxyphene Screen (DOPCRU=889) Ur Barbiturates Screen (QKBSPW=400) Ur Tricyclics Screen (LGKABY=505) Ur Phencyclidine Scrn (CUTOFF=25) Ur Amphetamine Screen (SREMVG=727) U Methamphetamines Scrn (PZEMYM=177) U Benzodiazepines Scrn (FDYJFO=065) U Cocaine Metab Screen (NYQLPN=744) U Marijuana (THC) Screen (CUTOFF=50) C.difficile 027-NAP1-B1 Presumptive negative C. difficile Tox (PCR) Negative Mycoplasma pneumon IgM (NEGATIVE) 07/12/18 07/12/18 07/12/18 Range/Units 15:10 15:10 15:10 WBC (3.98-10.04) K/mm3 RBC (3.98-5.22) M/mm3 Hgb (11.2-15.7) gm/L Hct (34.1-44.9) % MCV (79.4-94.8) fl MCH (25.6-32.2) pg MCHC (32.2-35.5) g/dl RDW Std Deviation (36.4-46.3) fL Plt Count (182-369) K/mm3 MPV (9.4-12.3) fl Neut % (Auto) (34.0-71.1) % Lymph % (Auto) (19.3-51.7) % [place] % (Auto) (4.7-12.5) % Eos % (Auto) (0.7-5.8) Baso % (Auto) (0.1-1.2) % Neut # (Auto) (1.56-6.13) K/mm3 Lymph # (Auto) (1.18-3.74) K/mm3 [place] # (Auto) (0.24-0.36) K/mm3 Eos # (Auto) (0.04-0.36) K/mm3 Baso # (Auto) (0.01-0.08) K/mm3 Neutrophils % (Manual) (40-60) % Band Neutrophils % (0-10) % Lymphocytes % (Manual) (20-40) % Atypical Lymphs % % Monocytes % (Manual) (2-10) % Eosinophils % (Manual) (0.7-5.8) % Basophils % (Manual) (0.1-1.2) Platelet Estimate RBC Morph Comment ESR 14 (0-20) mm/hr PT (9.5-12.1) SECONDS INR Sodium 140 (136-145) mEq/L Potassium 3.6 (3.5-5.1) mEq/L Chloride 98 (98-107) mEq/L Carbon Dioxide 31 (21-32) mEq/L Anion Gap 14.6 (5-15) BUN 17 (7-18) mg/dL Creatinine 0.7 (0.55-1.02) mg/dL Est Cr Clr Drug Dosing 74.36 mL/min Estimated GFR (MDRD) > 60 (>60) mL/min BUN/Creatinine Ratio 24.3 H (14-18) Glucose 167 H (83-115) mg/dL POC Glucose (83-110) mg/dL Hemoglobin A1c (4.50-6.20) % Lactic Acid (0.4-2.0) mmol/L Calcium 9.9 (8.5-10.1) mg/dL Magnesium 1.6 L (1.8-2.4) mg/dl Total Bilirubin 0.5 (0.2-1.0) mg/dL AST 26 (15-37) U/L ALT 35 (14-59) U/L Alkaline Phosphatase 97 (46-116) U/L Troponin I < 0.017 (0.00-0.056) ng/mL C-Reactive Protein < 0.2 (<1.0) mg/dL NT-Pro-B Natriuret Pep 999 H (0-125) pg/mL Total Protein 8.5 H (6.4-8.2) g/dl Albumin 4.4 (3.4-5.0) g/dl Globulin 4.1 gm/dL Albumin/Globulin Ratio 1.1 (1-2) Triglycerides (<150) mg/dL Cholesterol (<200) mg/dL LDL Cholesterol Direct (<100) mg/dL HDL Cholesterol (40-59) mg/dL TSH 3rd Generation (0.358-3.74) uIU/mL Urine Color (Yellow) Urine Appearance (Clear) Urine pH (5.0-8.0) Ur Specific [place] (1.005-1.030) Urine Protein (Negative) Urine Glucose (UA) (Negative) Urine Ketones (Negative) Urine Occult Blood (Negative) Urine Nitrite (Negative) Urine Bilirubin (Negative) Urine Urobilinogen (0.2-1.0) Ur Leukocyte Esterase (Negative) Urine RBC (0-5) /hpf Urine WBC (0-5) /hpf Ur Epithelial Cells (0-5) /hpf Urine Bacteria (FEW) /hpf Urine Mucus (FEW) /hpf Urine Opiates Screen (YJKZZN=577) Ur Buprenorphine Scrn (CUTOFF=10) Ur Oxycodone Screen (WRQ3WX=302) Urine Methadone Screen (XJWXDE=034) Ur Propoxyphene Screen (GRHSTZ=083) Ur Barbiturates Screen (FFUISK=954) Ur Tricyclics Screen (FQWQFQ=179) Ur Phencyclidine Scrn (CUTOFF=25) Ur Amphetamine Screen (QGNWUY=504) U Methamphetamines Scrn (GUNIZF=340) U Benzodiazepines Scrn (FCOKDJ=401) U Cocaine Metab Screen (ILMNLV=712) U Marijuana (THC) Screen (CUTOFF=50) C.difficile 027-NAP1-B1 C. difficile Tox (PCR) Mycoplasma pneumon IgM (NEGATIVE) 07/12/18 07/12/18 07/12/18 Range/Units 15:10 15:43 17:00 WBC (3.98-10.04) K/mm3 RBC (3.98-5.22) M/mm3 Hgb (11.2-15.7) gm/L Hct (34.1-44.9) % MCV (79.4-94.8) fl MCH (25.6-32.2) pg MCHC (32.2-35.5) g/dl RDW Std Deviation (36.4-46.3) fL Plt Count (182-369) K/mm3 MPV (9.4-12.3) fl Neut % (Auto) (34.0-71.1) % Lymph % (Auto) (19.3-51.7) % [place] % (Auto) (4.7-12.5) % Eos % (Auto) (0.7-5.8) Baso % (Auto) (0.1-1.2) % Neut # (Auto) (1.56-6.13) K/mm3 Lymph # (Auto) (1.18-3.74) K/mm3 [place] # (Auto) (0.24-0.36) K/mm3 Eos # (Auto) (0.04-0.36) K/mm3 Baso # (Auto) (0.01-0.08) K/mm3 Neutrophils % (Manual) (40-60) % Band Neutrophils % (0-10) % Lymphocytes % (Manual) (20-40) % Atypical Lymphs % % Monocytes % (Manual) (2-10) % Eosinophils % (Manual) (0.7-5.8) % Basophils % (Manual) (0.1-1.2) Platelet Estimate RBC Morph Comment ESR (0-20) mm/hr PT (9.5-12.1) SECONDS INR Sodium (136-145) mEq/L Potassium (3.5-5.1) mEq/L Chloride (98-107) mEq/L Carbon Dioxide (21-32) mEq/L Anion Gap (5-15) BUN (7-18) mg/dL Creatinine (0.55-1.02) mg/dL Est Cr Clr Drug Dosing mL/min Estimated GFR (MDRD) (>60) mL/min BUN/Creatinine Ratio (14-18) Glucose (83-115) mg/dL POC Glucose 161 H (83-110) mg/dL Hemoglobin A1c (4.50-6.20) % Lactic Acid (0.4-2.0) mmol/L Calcium (8.5-10.1) mg/dL Magnesium (1.8-2.4) mg/dl Total Bilirubin (0.2-1.0) mg/dL AST (15-37) U/L ALT (14-59) U/L Alkaline Phosphatase (46-116) U/L Troponin I (0.00-0.056) ng/mL C-Reactive Protein (<1.0) mg/dL NT-Pro-B Natriuret Pep (0-125) pg/mL Total Protein (6.4-8.2) g/dl Albumin (3.4-5.0) g/dl Globulin gm/dL Albumin/Globulin Ratio (1-2) Triglycerides (<150) mg/dL Cholesterol (<200) mg/dL LDL Cholesterol Direct (<100) mg/dL HDL Cholesterol (40-59) mg/dL TSH 3rd Generation (0.358-3.74) uIU/mL Urine Color Yellow (Yellow) Urine Appearance Clear (Clear) Urine pH 6.5 (5.0-8.0) Ur Specific [place] 1.025 (1.005-1.030) Urine Protein 2+ H (Negative) Urine Glucose (UA) Negative (Negative) Urine Ketones Trace H (Negative) Urine Occult Blood Trace-lysed H (Negative) Urine Nitrite Negative (Negative) Urine Bilirubin Negative (Negative) Urine Urobilinogen 0.2 (0.2-1.0) Ur Leukocyte Esterase Negative (Negative) Urine RBC 5-10 H (0-5) /hpf Urine WBC 0-5 (0-5) /hpf Ur Epithelial Cells 0-5 (0-5) /hpf Urine Bacteria Few (FEW) /hpf Urine Mucus Moderate H (FEW) /hpf Urine Opiates Screen (XZWZQG=559) Ur Buprenorphine Scrn (CUTOFF=10) Ur Oxycodone Screen (PFA7BD=132) Urine Methadone Screen (QKKZLT=161) Ur Propoxyphene Screen (LMEOXM=545) Ur Barbiturates Screen (ZHQSWA=949) Ur Tricyclics Screen (JMXWCY=928) Ur Phencyclidine Scrn (CUTOFF=25) Ur Amphetamine Screen (XLJDTF=229) U Methamphetamines Scrn (VIIZTP=055) U Benzodiazepines Scrn (GJZIOH=623) U Cocaine Metab Screen (NTQJPS=284) U Marijuana (THC) Screen (CUTOFF=50) C.difficile 027-NAP1-B1 C. difficile Tox (PCR) Mycoplasma pneumon IgM Negative (NEGATIVE) 07/12/18 07/12/18 07/12/18 Range/Units 17:00 19:50 22:13 WBC (3.98-10.04) K/mm3 RBC (3.98-5.22) M/mm3 Hgb (11.2-15.7) gm/L Hct (34.1-44.9) % MCV (79.4-94.8) fl MCH (25.6-32.2) pg MCHC (32.2-35.5) g/dl RDW Std Deviation (36.4-46.3) fL Plt Count (182-369) K/mm3 MPV (9.4-12.3) fl Neut % (Auto) (34.0-71.1) % Lymph % (Auto) (19.3-51.7) % [place] % (Auto) (4.7-12.5) % Eos % (Auto) (0.7-5.8) Baso % (Auto) (0.1-1.2) % Neut # (Auto) (1.56-6.13) K/mm3 Lymph # (Auto) (1.18-3.74) K/mm3 [place] # (Auto) (0.24-0.36) K/mm3 Eos # (Auto) (0.04-0.36) K/mm3 Baso # (Auto) (0.01-0.08) K/mm3 Neutrophils % (Manual) (40-60) % Band Neutrophils % (0-10) % Lymphocytes % (Manual) (20-40) % Atypical Lymphs % % Monocytes % (Manual) (2-10) % Eosinophils % (Manual) (0.7-5.8) % Basophils % (Manual) (0.1-1.2) Platelet Estimate RBC Morph Comment ESR (0-20) mm/hr PT (9.5-12.1) SECONDS INR Sodium (136-145) mEq/L Potassium (3.5-5.1) mEq/L Chloride (98-107) mEq/L Carbon Dioxide (21-32) mEq/L Anion Gap (5-15) BUN (7-18) mg/dL Creatinine (0.55-1.02) mg/dL Est Cr Clr Drug Dosing mL/min Estimated GFR (MDRD) (>60) mL/min BUN/Creatinine Ratio (14-18) Glucose (83-115) mg/dL POC Glucose 136 H 117 H (83-110) mg/dL Hemoglobin A1c (4.50-6.20) % Lactic Acid (0.4-2.0) mmol/L Calcium (8.5-10.1) mg/dL Magnesium (1.8-2.4) mg/dl Total Bilirubin (0.2-1.0) mg/dL AST (15-37) U/L ALT (14-59) U/L Alkaline Phosphatase (46-116) U/L Troponin I (0.00-0.056) ng/mL C-Reactive Protein (<1.0) mg/dL NT-Pro-B Natriuret Pep (0-125) pg/mL Total Protein (6.4-8.2) g/dl Albumin (3.4-5.0) g/dl Globulin gm/dL Albumin/Globulin Ratio (1-2) Triglycerides (<150) mg/dL Cholesterol (<200) mg/dL LDL Cholesterol Direct (<100) mg/dL HDL Cholesterol (40-59) mg/dL TSH 3rd Generation (0.358-3.74) uIU/mL Urine Color (Yellow) Urine Appearance (Clear) Urine pH (5.0-8.0) Ur Specific [place] (1.005-1.030) Urine Protein (Negative) Urine Glucose (UA) (Negative) Urine Ketones (Negative) Urine Occult Blood (Negative) Urine Nitrite (Negative) Urine Bilirubin (Negative) Urine Urobilinogen (0.2-1.0) Ur Leukocyte Esterase (Negative) Urine RBC (0-5) /hpf Urine WBC (0-5) /hpf Ur Epithelial Cells (0-5) /hpf Urine Bacteria (FEW) /hpf Urine Mucus (FEW) /hpf Urine Opiates Screen Negative (KPOARL=479) Ur Buprenorphine Scrn Negative (CUTOFF=10) Ur Oxycodone Screen Negative (VGQ5UH=527) Urine Methadone Screen Negative (PFNBMR=725) Ur Propoxyphene Screen Negative (QOXBBG=489) Ur Barbiturates Screen Negative (WXRBVL=649) Ur Tricyclics Screen Negative (HSWUUW=350) Ur Phencyclidine Scrn Negative (CUTOFF=25) Ur Amphetamine Screen Negative (AGXFAL=140) U Methamphetamines Scrn Negative (GABVFF=194) U Benzodiazepines Scrn Negative (CCRLHH=502) U Cocaine Metab Screen Negative (IVTZQM=710) U Marijuana (THC) Screen Negative (CUTOFF=50) C.difficile 027-NAP1-B1 C. difficile Tox (PCR) Mycoplasma pneumon IgM (NEGATIVE) 07/13/18 07/13/18 07/13/18 Range/Units 00:28 05:24 05:24 WBC 7.86 (3.98-10.04) K/mm3 RBC 4.50 (3.98-5.22) M/mm3 Hgb 13.2 (11.2-15.7) gm/L Hct 39.2 (34.1-44.9) % MCV 87.1 (79.4-94.8) fl MCH 29.3 (25.6-32.2) pg MCHC 33.7 (32.2-35.5) g/dl RDW Std Deviation 40.1 (36.4-46.3) fL Plt Count 217 (182-369) K/mm3 MPV 10.2 (9.4-12.3) fl Neut % (Auto) 68.3 (34.0-71.1) % Lymph % (Auto) 21.9 (19.3-51.7) % [place] % (Auto) 8.1 (4.7-12.5) % Eos % (Auto) 1.3 (0.7-5.8) Baso % (Auto) 0.3 (0.1-1.2) % Neut # (Auto) 5.37 (1.56-6.13) K/mm3 Lymph # (Auto) 1.72 (1.18-3.74) K/mm3 [place] # (Auto) 0.64 H (0.24-0.36) K/mm3 Eos # (Auto) 0.10 (0.04-0.36) K/mm3 Baso # (Auto) 0.02 (0.01-0.08) K/mm3 Neutrophils % (Manual) (40-60) % Band Neutrophils % (0-10) % Lymphocytes % (Manual) (20-40) % Atypical Lymphs % % Monocytes % (Manual) (2-10) % Eosinophils % (Manual) (0.7-5.8) % Basophils % (Manual) (0.1-1.2) Platelet Estimate RBC Morph Comment ESR (0-20) mm/hr PT (9.5-12.1) SECONDS INR Sodium 139 (136-145) mEq/L Potassium 3.5 (3.5-5.1) mEq/L Chloride 101 (98-107) mEq/L Carbon Dioxide 33 H (21-32) mEq/L Anion Gap 8.5 (5-15) BUN 12 (7-18) mg/dL Creatinine 0.7 (0.55-1.02) mg/dL Est Cr Clr Drug Dosing 74.36 mL/min Estimated GFR (MDRD) > 60 (>60) mL/min BUN/Creatinine Ratio 17.1 (14-18) Glucose 168 H (83-115) mg/dL POC Glucose 132 H (83-110) mg/dL Hemoglobin A1c (4.50-6.20) % Lactic Acid (0.4-2.0) mmol/L Calcium 8.9 (8.5-10.1) mg/dL Magnesium 2.2 (1.8-2.4) mg/dl Total Bilirubin (0.2-1.0) mg/dL AST (15-37) U/L ALT (14-59) U/L Alkaline Phosphatase (46-116) U/L Troponin I < 0.017 (0.00-0.056) ng/mL C-Reactive Protein 0.2 (<1.0) mg/dL NT-Pro-B Natriuret Pep (0-125) pg/mL Total Protein (6.4-8.2) g/dl Albumin (3.4-5.0) g/dl Globulin gm/dL Albumin/Globulin Ratio (1-2) Triglycerides 124 (<150) mg/dL Cholesterol 129 (<200) mg/dL LDL Cholesterol Direct 71 (<100) mg/dL HDL Cholesterol 52.0 (40-59) mg/dL TSH 3rd Generation 0.576 (0.358-3.74) uIU/mL Urine Color (Yellow) Urine Appearance (Clear) Urine pH (5.0-8.0) Ur Specific [place] (1.005-1.030) Urine Protein (Negative) Urine Glucose (UA) (Negative) Urine Ketones (Negative) Urine Occult Blood (Negative) Urine Nitrite (Negative) Urine Bilirubin (Negative) Urine Urobilinogen (0.2-1.0) Ur Leukocyte Esterase (Negative) Urine RBC (0-5) /hpf Urine WBC (0-5) /hpf Ur Epithelial Cells (0-5) /hpf Urine Bacteria (FEW) /hpf Urine Mucus (FEW) /hpf Urine Opiates Screen (IWIPDF=287) Ur Buprenorphine Scrn (CUTOFF=10) Ur Oxycodone Screen (LHD0NR=203) Urine Methadone Screen (SXBZQG=783) Ur Propoxyphene Screen (EJXNKC=868) Ur Barbiturates Screen (UFWUOY=156) Ur Tricyclics Screen (JKOJAW=197) Ur Phencyclidine Scrn (CUTOFF=25) Ur Amphetamine Screen (ASLXCT=682) U Methamphetamines Scrn (JMQCSY=232) U Benzodiazepines Scrn (HIIOZU=011) U Cocaine Metab Screen (XPNXJT=660) U Marijuana (THC) Screen (CUTOFF=50) C.difficile 027-NAP1-B1 C. difficile Tox (PCR) Mycoplasma pneumon IgM (NEGATIVE) 07/13/18 07/13/18 07/13/18 Range/Units 05:24 05:24 05:24 WBC (3.98-10.04) K/mm3 RBC (3.98-5.22) M/mm3 Hgb (11.2-15.7) gm/L Hct (34.1-44.9) % MCV (79.4-94.8) fl MCH (25.6-32.2) pg MCHC (32.2-35.5) g/dl RDW Std Deviation (36.4-46.3) fL Plt Count (182-369) K/mm3 MPV (9.4-12.3) fl Neut % (Auto) (34.0-71.1) % Lymph % (Auto) (19.3-51.7) % [place] % (Auto) (4.7-12.5) % Eos % (Auto) (0.7-5.8) Baso % (Auto) (0.1-1.2) % Neut # (Auto) (1.56-6.13) K/mm3 Lymph # (Auto) (1.18-3.74) K/mm3 [place] # (Auto) (0.24-0.36) K/mm3 Eos # (Auto) (0.04-0.36) K/mm3 Baso # (Auto) (0.01-0.08) K/mm3 Neutrophils % (Manual) (40-60) % Band Neutrophils % (0-10) % Lymphocytes % (Manual) (20-40) % Atypical Lymphs % % Monocytes % (Manual) (2-10) % Eosinophils % (Manual) (0.7-5.8) % Basophils % (Manual) (0.1-1.2) Platelet Estimate RBC Morph Comment ESR (0-20) mm/hr PT (9.5-12.1) SECONDS INR Sodium (136-145) mEq/L Potassium (3.5-5.1) mEq/L Chloride (98-107) mEq/L Carbon Dioxide (21-32) mEq/L Anion Gap (5-15) BUN (7-18) mg/dL Creatinine (0.55-1.02) mg/dL Est Cr Clr Drug Dosing mL/min Estimated GFR (MDRD) (>60) mL/min BUN/Creatinine Ratio (14-18) Glucose (83-115) mg/dL POC Glucose (83-110) mg/dL Hemoglobin A1c 7.30 H (4.50-6.20) % Lactic Acid 1.3 (0.4-2.0) mmol/L Calcium (8.5-10.1) mg/dL Magnesium (1.8-2.4) mg/dl Total Bilirubin (0.2-1.0) mg/dL AST (15-37) U/L ALT (14-59) U/L Alkaline Phosphatase (46-116) U/L Troponin I (0.00-0.056) ng/mL C-Reactive Protein (<1.0) mg/dL NT-Pro-B Natriuret Pep 1279 H (0-125) pg/mL Total Protein (6.4-8.2) g/dl Albumin (3.4-5.0) g/dl Globulin gm/dL Albumin/Globulin Ratio (1-2) Triglycerides (<150) mg/dL Cholesterol (<200) mg/dL LDL Cholesterol Direct (<100) mg/dL HDL Cholesterol (40-59) mg/dL TSH 3rd Generation (0.358-3.74) uIU/mL Urine Color (Yellow) Urine Appearance (Clear) Urine pH (5.0-8.0) Ur Specific [place] (1.005-1.030) Urine Protein (Negative) Urine Glucose (UA) (Negative) Urine Ketones (Negative) Urine Occult Blood (Negative) Urine Nitrite (Negative) Urine Bilirubin (Negative) Urine Urobilinogen (0.2-1.0) Ur Leukocyte Esterase (Negative) Urine RBC (0-5) /hpf Urine WBC (0-5) /hpf Ur Epithelial Cells (0-5) /hpf Urine Bacteria (FEW) /hpf Urine Mucus (FEW) /hpf Urine Opiates Screen (CCEZOP=179) Ur Buprenorphine Scrn (CUTOFF=10) Ur Oxycodone Screen (WAO9VG=853) Urine Methadone Screen (MQDKJJ=390) Ur Propoxyphene Screen (JZBDEJ=309) Ur Barbiturates Screen (DXBTSX=434) Ur Tricyclics Screen (MRFATN=229) Ur Phencyclidine Scrn (CUTOFF=25) Ur Amphetamine Screen (TEJUYD=729) U Methamphetamines Scrn (AMSZGM=984) U Benzodiazepines Scrn (JOJKUG=675) U Cocaine Metab Screen (UBAJSB=792) U Marijuana (THC) Screen (CUTOFF=50) C.difficile 027-NAP1-B1 C. difficile Tox (PCR) Mycoplasma pneumon IgM (NEGATIVE) 07/13/18 07/13/18 07/13/18 Range/Units 05:25 11:51 13:03 WBC (3.98-10.04) K/mm3 RBC (3.98-5.22) M/mm3 Hgb (11.2-15.7) gm/L Hct (34.1-44.9) % MCV (79.4-94.8) fl MCH (25.6-32.2) pg MCHC (32.2-35.5) g/dl RDW Std Deviation (36.4-46.3) fL Plt Count (182-369) K/mm3 MPV (9.4-12.3) fl Neut % (Auto) (34.0-71.1) % Lymph % (Auto) (19.3-51.7) % [place] % (Auto) (4.7-12.5) % Eos % (Auto) (0.7-5.8) Baso % (Auto) (0.1-1.2) % Neut # (Auto) (1.56-6.13) K/mm3 Lymph # (Auto) (1.18-3.74) K/mm3 [place] # (Auto) (0.24-0.36) K/mm3 Eos # (Auto) (0.04-0.36) K/mm3 Baso # (Auto) (0.01-0.08) K/mm3 Neutrophils % (Manual) (40-60) % Band Neutrophils % (0-10) % Lymphocytes % (Manual) (20-40) % Atypical Lymphs % % Monocytes % (Manual) (2-10) % Eosinophils % (Manual) (0.7-5.8) % Basophils % (Manual) (0.1-1.2) Platelet Estimate RBC Morph Comment ESR (0-20) mm/hr PT (9.5-12.1) SECONDS INR Sodium (136-145) mEq/L Potassium (3.5-5.1) mEq/L Chloride (98-107) mEq/L Carbon Dioxide (21-32) mEq/L Anion Gap (5-15) BUN (7-18) mg/dL Creatinine (0.55-1.02) mg/dL Est Cr Clr Drug Dosing mL/min Estimated GFR (MDRD) (>60) mL/min BUN/Creatinine Ratio (14-18) Glucose (83-115) mg/dL POC Glucose 183 H 178 H (83-110) mg/dL Hemoglobin A1c (4.50-6.20) % Lactic Acid (0.4-2.0) mmol/L Calcium (8.5-10.1) mg/dL Magnesium (1.8-2.4) mg/dl Total Bilirubin (0.2-1.0) mg/dL AST (15-37) U/L ALT (14-59) U/L Alkaline Phosphatase (46-116) U/L Troponin I < 0.017 (0.00-0.056) ng/mL C-Reactive Protein (<1.0) mg/dL NT-Pro-B Natriuret Pep (0-125) pg/mL Total Protein (6.4-8.2) g/dl Albumin (3.4-5.0) g/dl Globulin gm/dL Albumin/Globulin Ratio (1-2) Triglycerides (<150) mg/dL Cholesterol (<200) mg/dL LDL Cholesterol Direct (<100) mg/dL HDL Cholesterol (40-59) mg/dL TSH 3rd Generation (0.358-3.74) uIU/mL Urine Color (Yellow) Urine Appearance (Clear) Urine pH (5.0-8.0) Ur Specific [place] (1.005-1.030) Urine Protein (Negative) Urine Glucose (UA) (Negative) Urine Ketones (Negative) Urine Occult Blood (Negative) Urine Nitrite (Negative) Urine Bilirubin (Negative) Urine Urobilinogen (0.2-1.0) Ur Leukocyte Esterase (Negative) Urine RBC (0-5) /hpf Urine WBC (0-5) /hpf Ur Epithelial Cells (0-5) /hpf Urine Bacteria (FEW) /hpf Urine Mucus (FEW) /hpf Urine Opiates Screen (OPYARC=556) Ur Buprenorphine Scrn (CUTOFF=10) Ur Oxycodone Screen (KCX3PQ=933) Urine Methadone Screen (PPJRFW=911) Ur Propoxyphene Screen (RDFRLV=388) Ur Barbiturates Screen (LUKHZF=690) Ur Tricyclics Screen (ZFWDNP=219) Ur Phencyclidine Scrn (CUTOFF=25) Ur Amphetamine Screen (ILTIHN=045) U Methamphetamines Scrn (TJXRLA=260) U Benzodiazepines Scrn (HBEXUT=493) U Cocaine Metab Screen (HVHDBT=343) U Marijuana (THC) Screen (CUTOFF=50) C.difficile 027-NAP1-B1 C. difficile Tox (PCR) Mycoplasma pneumon IgM (NEGATIVE) [facility] Results Last 24 Hours: Microbiology 07/12/18 15:55 Anaerobic Blood Culture - Final Blood - Venous - Lab Draw 07/12/18 15:45 Anaerobic Blood Culture - Final Blood - Venous 07/12/18 21:00 Respiratory Syncytial Virus Ag Scrn - Final Nasopharyngeal Swab - Nare, Unspecified NEGATIVE RSV ANTIGEN 07/12/18 15:00 Rotavirus Antigen - Final Stool / Feces - Stool, Aspirate NEGATIVE ROTAVIRUS ANTIGEN 07/12/18 17:00 Influenza Type A Antigen Screen - Final Nasal, Right NEGATIVE INFLUENZA A VIRUS AG Influenza Type B Antigen Screen - Final NEGATIVE INFLUENZA B VIRUS AG 07/12/18 15:00 Stool for WBCs - Final Stool / Feces NO WBC SEEN Med Orders - Current: Current Medications Clopidogrel Bisulfate (Plavix) 75 mg PO DAILY [facility] Last Admin: 07/13/18 08:04 Dose: 75 mg Dextrose/Water (Dextrose 50% In Water) 50 ml IVPUSH ASDIRECTED PRN PRN Reason: Hypoglycemia Dextrose/Sodium Chloride (Dextrose 5%-Normal Saline) 1,000 mls @ 75 mls/hr IV ASDIRECTED [facility] Last Admin: 07/13/18 11:55 Dose: 75 mls/hr Insulin Human Lispro (Humalog) 0 unit SUBCUT QIDACANDBED [facility]; Protocol Last Admin: 07/13/18 11:55 Dose: 1 unit Lorazepam (Ativan) 1 mg IVPUSH Q6H PRN PRN Reason: Seizures Metoprolol Tartrate (Lopressor) 12.5 mg PO Q12H [facility] Last Admin: 07/13/18 08:02 Dose: Not Given Simvastatin (Zocor) 20 mg PO BEDTIME [facility] Discontinued Medications Furosemide (Lasix) 20 mg IVPUSH ONETIME ONE Stop: 07/13/18 03:01 Last Admin: 07/13/18 02:07 Dose: 20 mg Sodium Chloride (Normal Saline) 1,000 mls @ 200 mls/hr IV ASDIRECTED [facility] Last Admin: 07/12/18 15:48 Dose: 200 mls/hr Magnesium Sulfate 4 gm/ Premix 100 mls @ 25 mls/hr IV ONETIME ONE Stop: 07/12/18 20:32 Last Admin: 07/12/18 22:05 Dose: 25 mls/hr Iopamidol (Isovue-300 (61%)) 100 ml IVPUSH ONETIME ONE Stop: 07/12/18 17:56 Last Admin: 07/12/18 18:21 Dose: 100 ml Metoclopramide HCl (Reglan) 7.5 mg IVPUSH ONETIME ONE Stop: 07/12/18 15:22 Last Admin: 07/12/18 15:48 Dose: 7.5 mg Metoclopramide HCl (Reglan) 5 mg IVPUSH ONETIME ONE Stop: 07/12/18 17:32 Last Admin: 07/12/18 17:47 Dose: 5 mg Simvastatin (Zocor) 20 mg PO DAILY [facility] - Exam Quality Assessment: Urine Catheter, DVT Prophylaxis General: Alert, Oriented, No Acute Distress HEENT: Pupils Equal, Pupils Reactive, EOMI Neck: Trachea Midline, No JVD Lungs: Normal Respiratory Effort Cardiovascular: Regular Rate GI/Abdominal Exam: Normal Bowel Sounds, Soft, Non-Tender, No Organomegaly, No Distention (Female) Exam: Deferred Back Exam: Normal Inspection Extremities: Normal Inspection, Non-Tender, Slow Capillary Refill Skin: Warm Neurological: No New Focal Deficit, Normal Speech Psy/Mental Status: Alert - Problem List Review Problem List Initiated/Reviewed/Updated: Yes - My Orders Last 24 Hours: My Active Orders 07/12/18 17:01 STREP PNEUMONIAE ANTIGEN [MREF] Routine 07/12/18 20:14 Isolation [COMM] Routine 07/12/18 20:18 Neuro Check [RC] Q6HR 07/12/18 20:19 Accu Check [Blood Glucose Check, Bedside] [RC] Q6HR 07/12/18 20:20 Dextrose 50% in Water 50 ml IVPUSH ASDIRECTED PRN 07/12/18 20:21 LORazepam [Ativan] 1 mg IVPUSH Q6H PRN 07/12/18 20:22 Head of Bed Elevation [RC] ASDIRECTED 07/12/18 21:00 RESPIRATORY PANEL Routine Metoprolol Tartrate [Lopressor] 12.5 mg PO Q12H Seizure Precautions [OM.PC] Routine 07/12/18 22:00 Dextrose 5%-0.9% NaCl [Dextrose 5%-Normal Saline] 1,000 ml IV ASDIRECTED Insulin Lispro [HumaLOG] See Protocol SUBCUT QIDACANDBED 07/12/18 23:38 Code Status [Resuscitation Status] Routine 07/13/18 09:00 Clopidogrel [Plavix] 75 mg PO DAILY 07/13/18 09:45 Patient Status [ADT] Routine 07/13/18 09:57 Consult to Speech Language Pathology [WATER[employer]OOFING SUPERVISOR Evaluation and Treatment] [CONS] Routine 07/13/18 13:14 CTA Head W & W/O Contrast [Ang Head] [CT] Routine 07/13/18 14:00 Ang Neck [CT] Routine 07/13/18 21:00 Simvastatin [Zocor] 20 mg PO BEDTIME 07/13/18 Breakfast NPO [Nothing Per Oral Diet] [DIET] 07/14/18 05:00 BASIC METABOLIC PANEL,BMP [CHEM] DAILY CBC WITH AUTO DIFF [HEME] DAILY CRP [C-REACTIVE PROTEIN] [CHEM] DAILY LACTIC ACID [CHEM] DAILY MAGNESIUM [CHEM] DAILY PRO B-TYPE NATRIUR PEPT,BNPPRO [CHEM] DAILY 07/14/18 09:00 Head wo Cont [CT] Routine 07/15/18 05:00 BASIC METABOLIC PANEL,BMP [CHEM] DAILY CBC WITH AUTO DIFF [HEME] DAILY CRP [C-REACTIVE PROTEIN] [CHEM] DAILY LACTIC ACID [CHEM] DAILY MAGNESIUM [CHEM] DAILY PRO B-TYPE NATRIUR PEPT,BNPPRO [CHEM] DAILY 07/16/18 05:00 BASIC METABOLIC PANEL,BMP [CHEM] DAILY CBC WITH AUTO DIFF [HEME] DAILY CRP [C-REACTIVE PROTEIN] [CHEM] DAILY MAGNESIUM [CHEM] DAILY 07/17/18 05:00 BASIC METABOLIC PANEL,BMP [CHEM] DAILY CBC WITH AUTO DIFF [HEME] DAILY CRP [C-REACTIVE PROTEIN] [CHEM] DAILY MAGNESIUM [CHEM] DAILY - Plan Plan:: Impression: Query home environment, conflicting reports on home environment Doubt acute gastroenteritis; reported > 8 stools; overnight 1 stool. Confusion/delirium, NOS Dizziness/presyncopal History of CAD with IA changes on ECG CHF, BNP 999 Chronic PPM PVD CAD Diabetes mellitus type 2 Plan: Resp infectious work up Ischemic work up Droplet isolation Stool studies-->negative C diff, etc. Orthostatics CVA work up: CTA head/neck today; neuro checks SW consult re: home environment; 960 if needed. Consult PT/OT/CM-SW EMR/clinic records DVT/GI prophylaxis
--- NOTE | 2018-07-13 15:10 | CR ---
Chest: Portable view of the chest was obtained. Comparison: No prior chest x-ray. Heart size and mediastinum are within normal limits for portable technique. AICD is noted. Lungs are clear. Surgical clips are seen within the neck. Impression: 1. Nothing acute is seen on portable chest x-ray. Diagnostic code #2
[2018-07-13] MEDS ORDERED: Haloperidol Lactate 5 MG/ML SDV IVPUSH ONE ×2 (15:34→16:00)
[2018-07-13] MEDS ORDERED: LORazepam 2 MG/ML SDV IVPUSH ONE (15:35)
[2018-07-13] MEDS ORDERED: Iopamidol 612 MG/ML 100 ML Bottle IVPUSH ONE (15:40)
[2018-07-13] MEDS ORDERED: Sodium Chloride 0.9% 250 ML IV SCH (15:45)
[2018-07-13] MEDS ORDERED: Iopamidol 755 Mg/ML 100 ML Bottle IVPUSH ONE (16:19)
[2018-07-13] MEDS: Haloperidol Lactate 5 MG/ML SDV ONE ×2 (16:27→16:36)
[2018-07-13] MEDS ORDERED: Sodium Chloride 0.9% 1,000 ML IV SCH (19:15)
[2018-07-13] MEDS: Nicotine 21 MG/24 Hr Patch TRDERM SCH (20:35)
[2018-07-13] MEDS: Simvastatin 20 MG Tab PO SCH (20:35)
[2018-07-14] MEDS ORDERED: Furosemide 20 MG/2 ML VIAL IVPUSH ONE ×2 (03:00→18:00)
[2018-07-14] MEDS: Insulin Lispro 100 UNIT/ML 10 ML VIAL SUBCUT SCH ×4 (06:08→21:00)
[2018-07-14] MEDS: Clopidogrel 75 MG Tab PO SCH (08:58)
[2018-07-14] MEDS ORDERED: Furosemide 20 MG/2 ML VIAL IVPUSH SCH (09:00)
[2018-07-14] MEDS ORDERED: Magnesium Sulfate/Water 4 GM in Premix Bag 1 BAG IV ONE (09:29)
[2018-07-14] MEDS ORDERED: Spironolactone 25 MG Tab PO SCH (09:30)
[2018-07-14] MEDS: Metoprolol Tartrate 25 MG Tab PO SCH ×2 (10:21→20:56)
[2018-07-14] MEDS: Potassium Chloride 20 MEQ Tab.ER PO SCH ×2 (11:21→22:16)
[2018-07-14] MEDS ORDERED: Lactated Ringers 1,000 ML IV ONE (11:51)
[2018-07-14] MEDS ORDERED: Lactated Ringers 1,000 ML IV SCH ×2 (13:00→19:00)
--- NOTE | 2018-07-14 15:00 | PCM.PN ---
- General Info Date of Service: 07/14/18 Subjective Update: Orthostatics are noted. Functional Status: Reports: Tolerating Diet, Urinating - Review of Systems General: Reports: Weakness HEENT: Reports: No Symptoms Pulmonary: Reports: No Symptoms Cardiovascular: Reports: No Symptoms Gastrointestinal: Reports: No Symptoms Genitourinary: Reports: No Symptoms Musculoskeletal: Reports: No Symptoms Skin: Reports: No Symptoms Neurological: Reports: No Symptoms Psychiatric: Reports: No Symptoms - Patient Data Vitals - Most Recent: Last Vital Signs Temp 36.9 C 07/14/18 13:16 Pulse 80 07/14/18 13:16 Resp 18 07/14/18 13:16 BP 148/64 H 07/14/18 13:16 Pulse Ox 95 07/14/18 13:16 Orthostatic Blood Pressure [ 154/63 Supine] Orthostatic Blood Pressure [ 85/62 Standing] Orthostatic Blood Pressure [ 102/84 Sitting] Weight - Most Recent: 76.702 kg I&O - Last 24 Hours: Intake & Output 07/14/18 07/14/18 07/14/18 06:59 14:59 22:59 Intake Total 780 1520 Output Total 400 220 Balance 380 1300 Lab Results Last 24 Hours: Laboratory Results - last 24 hr 07/13/18 07/13/18 07/14/18 Range/Units 16:51 23:03 05:21 WBC (3.98-10.04) K/mm3 RBC (3.98-5.22) M/mm3 Hgb (11.2-15.7) gm/L Hct (34.1-44.9) % MCV (79.4-94.8) fl MCH (25.6-32.2) pg MCHC (32.2-35.5) g/dl RDW Std Deviation (36.4-46.3) fL Plt Count (182-369) K/mm3 MPV (9.4-12.3) fl Neut % (Auto) (34.0-71.1) % Lymph % (Auto) (19.3-51.7) % [place] % (Auto) (4.7-12.5) % Eos % (Auto) (0.7-5.8) Baso % (Auto) (0.1-1.2) % Neut # (Auto) (1.56-6.13) K/mm3 Lymph # (Auto) (1.18-3.74) K/mm3 [place] # (Auto) (0.24-0.36) K/mm3 Eos # (Auto) (0.04-0.36) K/mm3 Baso # (Auto) (0.01-0.08) K/mm3 Sodium (136-145) mEq/L Potassium (3.5-5.1) mEq/L Chloride (98-107) mEq/L Carbon Dioxide (21-32) mEq/L Anion Gap (5-15) BUN (7-18) mg/dL Creatinine (0.55-1.02) mg/dL Est Cr Clr Drug Dosing mL/min Estimated GFR (MDRD) (>60) mL/min BUN/Creatinine Ratio (14-18) Glucose (83-115) mg/dL POC Glucose 159 H 110 144 H (83-110) mg/dL Lactic Acid (0.4-2.0) mmol/L Calcium (8.5-10.1) mg/dL Magnesium (1.8-2.4) mg/dl C-Reactive Protein (<1.0) mg/dL NT-Pro-B Natriuret Pep (0-125) pg/mL 07/14/18 07/14/18 07/14/18 Range/Units 05:22 05:22 05:22 WBC 7.48 (3.98-10.04) K/mm3 RBC 4.22 (3.98-5.22) M/mm3 Hgb 12.4 (11.2-15.7) gm/L Hct 36.9 (34.1-44.9) % MCV 87.4 (79.4-94.8) fl MCH 29.4 (25.6-32.2) pg MCHC 33.6 (32.2-35.5) g/dl RDW Std Deviation 40.4 (36.4-46.3) fL Plt Count 194 (182-369) K/mm3 MPV 10.4 (9.4-12.3) fl Neut % (Auto) 69.9 (34.0-71.1) % Lymph % (Auto) 20.2 (19.3-51.7) % [place] % (Auto) 7.9 (4.7-12.5) % Eos % (Auto) 1.6 (0.7-5.8) Baso % (Auto) 0.3 (0.1-1.2) % Neut # (Auto) 5.23 (1.56-6.13) K/mm3 Lymph # (Auto) 1.51 (1.18-3.74) K/mm3 [place] # (Auto) 0.59 H (0.24-0.36) K/mm3 Eos # (Auto) 0.12 (0.04-0.36) K/mm3 Baso # (Auto) 0.02 (0.01-0.08) K/mm3 Sodium 140 (136-145) mEq/L Potassium 3.1 L (3.5-5.1) mEq/L Chloride 103 (98-107) mEq/L Carbon Dioxide 30 (21-32) mEq/L Anion Gap 10.1 (5-15) BUN 12 (7-18) mg/dL Creatinine 0.7 (0.55-1.02) mg/dL Est Cr Clr Drug Dosing 74.36 mL/min Estimated GFR (MDRD) > 60 (>60) mL/min BUN/Creatinine Ratio 17.1 (14-18) Glucose 136 H (83-115) mg/dL POC Glucose (83-110) mg/dL Lactic Acid (0.4-2.0) mmol/L Calcium 8.6 (8.5-10.1) mg/dL Magnesium 1.5 L (1.8-2.4) mg/dl C-Reactive Protein 0.4 (<1.0) mg/dL NT-Pro-B Natriuret Pep 634 H (0-125) pg/mL 07/14/18 07/14/18 Range/Units 05:22 11:17 WBC (3.98-10.04) K/mm3 RBC (3.98-5.22) M/mm3 Hgb (11.2-15.7) gm/L Hct (34.1-44.9) % MCV (79.4-94.8) fl MCH (25.6-32.2) pg MCHC (32.2-35.5) g/dl RDW Std Deviation (36.4-46.3) fL Plt Count (182-369) K/mm3 MPV (9.4-12.3) fl Neut % (Auto) (34.0-71.1) % Lymph % (Auto) (19.3-51.7) % [place] % (Auto) (4.7-12.5) % Eos % (Auto) (0.7-5.8) Baso % (Auto) (0.1-1.2) % Neut # (Auto) (1.56-6.13) K/mm3 Lymph # (Auto) (1.18-3.74) K/mm3 [place] # (Auto) (0.24-0.36) K/mm3 Eos # (Auto) (0.04-0.36) K/mm3 Baso # (Auto) (0.01-0.08) K/mm3 Sodium (136-145) mEq/L Potassium (3.5-5.1) mEq/L Chloride (98-107) mEq/L Carbon Dioxide (21-32) mEq/L Anion Gap (5-15) BUN (7-18) mg/dL Creatinine (0.55-1.02) mg/dL Est Cr Clr Drug Dosing mL/min Estimated GFR (MDRD) (>60) mL/min BUN/Creatinine Ratio (14-18) Glucose (83-115) mg/dL POC Glucose 263 H (83-110) mg/dL Lactic Acid 0.8 (0.4-2.0) mmol/L Calcium (8.5-10.1) mg/dL Magnesium (1.8-2.4) mg/dl C-Reactive Protein (<1.0) mg/dL NT-Pro-B Natriuret Pep (0-125) pg/mL Jay[facility] Results Last 24 Hours: Microbiology 07/12/18 15:00 Stool Culture - Preliminary Stool / Feces Shiga Toxin I - Final NEGATIVE FOR SHIGA TOXIN 1 Shiga Toxin II - Final NEGATIVE FOR SHIGA TOXIN 2 07/12/18 15:55 Aerobic Blood Culture - Preliminary Blood - Venous - Lab Draw NO GROWTH AFTER 1 DAY Anaerobic Blood Culture - Final 07/12/18 15:45 Aerobic Blood Culture - Preliminary Blood - Venous NO GROWTH AFTER 1 DAY Anaerobic Blood Culture - Final Med Orders - Current: Current Medications Clopidogrel Bisulfate (Plavix) 75 mg PO DAILY LUCINDA Last Admin: 07/14/18 08:58 Dose: 75 mg Dextrose/Water (Dextrose 50% In Water) 50 ml IVPUSH ASDIRECTED PRN PRN Reason: Hypoglycemia Furosemide (Lasix) 20 mg IVPUSH DAILY [facility] Last Admin: 07/14/18 10:21 Dose: Not Given Lactated Ringer's (Ringers, Lactated) 1,000 mls @ 150 mls/hr IV ASDIRECTED [facility] Stop: 07/14/18 19:00 Last Admin: 07/14/18 13:35 Dose: 150 mls/hr Lactated Ringer's (Ringers, Lactated) 1,000 mls @ 75 mls/hr IV ASDIRECTED [facility] Insulin Human Lispro (Humalog) 0 unit SUBCUT QIDACANDBED [facility]; Protocol Last Admin: 07/14/18 11:54 Dose: 3 unit Lorazepam (Ativan) 1 mg IVPUSH Q6H PRN PRN Reason: Seizures Metoprolol Tartrate (Lopressor) 12.5 mg PO Q12H [facility] Last Admin: 07/14/18 10:21 Dose: Not Given Miscellaneous Information (Remove Patch) 1 ea TRDERM QPM LUCINDA Nicotine (Habitrol) 21 mg TRDERM QPM [facility] Last Admin: 07/13/18 20:35 Dose: 21 mg Potassium Chloride (Klor-Con M20) 40 meq PO BID [facility] Stop: 07/15/18 09:01 Last Admin: 07/14/18 11:21 Dose: 40 meq Simvastatin (Zocor) 20 mg PO BEDTIME [facility] Last Admin: 07/13/18 20:35 Dose: 20 mg Spironolactone (Aldactone) 25 mg PO DAILY [facility] Stop: 07/17/18 09:01 Last Admin: 07/14/18 11:21 Dose: 25 mg Discontinued Medications Furosemide (Lasix) 20 mg IVPUSH ONETIME ONE Stop: 07/13/18 03:01 Last Admin: 07/13/18 02:07 Dose: 20 mg Furosemide (Lasix) 20 mg IVPUSH ONETIME ONE Stop: 07/14/18 03:01 Last Admin: 07/14/18 02:02 Dose: 20 mg Haloperidol Lactate (Haldol) 1 mg IVPUSH ONETIME ONE Stop: 07/13/18 15:35 Last Admin: 07/13/18 15:41 Dose: 1 mg Haloperidol Lactate (Haldol) Confirm Administered Dose 5 mg .ROUTE .STK-MED ONE Stop: 07/13/18 15:41 Last Admin: 07/13/18 16:36 Dose: Not Given Haloperidol Lactate (Haldol) 1 mg IVPUSH ONETIME ONE Stop: 07/13/18 16:01 Last Admin: 07/13/18 16:40 Dose: 1 mg Sodium Chloride (Normal Saline) 1,000 mls @ 200 mls/hr IV ASDIRECTED [facility] Last Admin: 07/12/18 15:48 Dose: 200 mls/hr Magnesium Sulfate 4 gm/ Premix 100 mls @ 25 mls/hr IV ONETIME ONE Stop: 07/12/18 20:32 Last Admin: 07/12/18 22:05 Dose: 25 mls/hr Dextrose/Sodium Chloride (Dextrose 5%-Normal Saline) 1,000 mls @ 75 mls/hr IV ASDIRECTED [facility] Last Admin: 07/13/18 11:55 Dose: 75 mls/hr Sodium Chloride (Normal Saline) 250 mls @ 75 mls/hr IV ASDIRECTED [facility] Sodium Chloride (Normal Saline) 1,000 mls @ 75 mls/hr IV ASDIRECTED [facility] Stop: 07/14/18 01:15 Last Admin: 07/13/18 19:23 Dose: 75 mls/hr Magnesium Sulfate 4 gm/ Premix 100 mls @ 25 mls/hr IV ONETIME ONE Stop: 07/14/18 09:30 Last Admin: 07/14/18 10:36 Dose: 25 mls/hr Lactated Ringer's (Ringers, Lactated) 1,000 mls @ 999 mls/hr IV .BOLUS ONE Stop: 07/14/18 12:51 Last Admin: 07/14/18 11:56 Dose: 999 mls/hr Iopamidol (Isovue-300 (61%)) 100 ml IVPUSH ONETIME ONE Stop: 07/12/18 17:56 Last Admin: 07/12/18 18:21 Dose: 100 ml Iopamidol (Isovue-370 (76%)) 100 ml IVPUSH ONETIME ONE Stop: 07/13/18 16:20 Last Admin: 07/13/18 16:20 Dose: 100 ml Lorazepam (Ativan) 2 mg IVPUSH ONETIME ONE Stop: 07/13/18 15:36 Last Admin: 07/13/18 15:42 Dose: 2 mg Metoclopramide HCl (Reglan) 7.5 mg IVPUSH ONETIME ONE Stop: 07/12/18 15:22 Last Admin: 07/12/18 15:48 Dose: 7.5 mg Metoclopramide HCl (Reglan) 5 mg IVPUSH ONETIME ONE Stop: 07/12/18 17:32 Last Admin: 07/12/18 17:47 Dose: 5 mg Simvastatin (Zocor) 20 mg PO DAILY LUCINDA - Exam Quality Assessment: Supplemental Oxygen, DVT Prophylaxis General: Alert, Oriented, Cooperative, No Acute Distress HEENT: Pupils Equal, Pupils Reactive, EOMI Neck: Trachea Midline, No JVD Lungs: Normal Respiratory Effort Cardiovascular: Regular Rate GI/Abdominal Exam: Normal Bowel Sounds, Soft, Non-Tender, No Organomegaly, No Distention (Female) Exam: Deferred Back Exam: Normal Inspection Extremities: Normal Inspection, Non-Tender, Slow Capillary Refill Skin: Warm Neurological: No New Focal Deficit, Normal Speech Psy/Mental Status: Alert - Problem List Review Problem List Initiated/Reviewed/Updated: Yes - My Orders Last 24 Hours: My Active Orders 07/13/18 21:00 Nicotine [Habitrol] 21 mg TRDERM QPM Simvastatin [Zocor] 20 mg PO BEDTIME 07/14/18 09:00 Furosemide [Lasix] 20 mg IVPUSH DAILY 07/14/18 09:30 Potassium Chloride [Klor-Con M20] 40 meq PO BID Spironolactone [Aldactone] 25 mg PO DAILY 07/14/18 13:00 Lactated Ringers [Ringers, Lactated] 1,000 ml IV ASDIRECTED 07/14/18 18:00 Remove Patch 1 ea TRDERM QPM 07/14/18 19:00 Lactated Ringers [Ringers, Lactated] 1,000 ml IV ASDIRECTED 07/14/18 Lunch ADA Diabetic [[employer] Diet] [DIET] 07/15/18 05:00 BASIC METABOLIC PANEL,BMP [CHEM] DAILY CBC WITH AUTO DIFF [HEME] DAILY CRP [C-REACTIVE PROTEIN] [CHEM] DAILY LACTIC ACID [CHEM] DAILY MAGNESIUM [CHEM] DAILY PRO B-TYPE NATRIUR PEPT,BNPPRO [CHEM] DAILY 07/15/18 09:00 Echo Comp wo Cont [US] Routine 07/16/18 05:00 BASIC METABOLIC PANEL,BMP [CHEM] DAILY CBC WITH AUTO DIFF [HEME] DAILY CRP [C-REACTIVE PROTEIN] [CHEM] DAILY MAGNESIUM [CHEM] DAILY 07/17/18 05:00 BASIC METABOLIC PANEL,BMP [CHEM] DAILY CBC WITH AUTO DIFF [HEME] DAILY CRP [C-REACTIVE PROTEIN] [CHEM] DAILY MAGNESIUM [CHEM] DAILY - Plan Plan:: Impression: Query home environment, conflicting reports on home environment Doubt acute gastroenteritis; reported > 8 stools; overnight 1 stool. Orthostatics/Dehydration--IVF; follow I/Os Confusion/delirium, NOS Dizziness/presyncopal, see above; doubt ischemia History of CAD with MD changes on ECG CHF, BNP 999-->1279-->>~600 urine output ~>70 cc/hr Chronic PPM PVD CAD Diabetes mellitus type 2 Plan: Resp infectious work up Ischemic work up Droplet isolation Stool studies-->negative C diff, etc. Orthostatics CVA work up: CTA head/neck final report pending; neuro checks 2D echo on 07/15/18. MARK consult re: home environment; 960 if needed. Consult PT/OT/CM-MARK EMR/clinic records DVT/GI prophylaxis
[2018-07-14] MEDS: Nicotine 21 MG/24 Hr Patch TRDERM SCH (17:58)
--- NOTE | 2018-07-14 20:39 | PCM.SN ---
- Free Text/Narrative Note: Called to meet daughter, Sofia who reports that her Mother is in heart failure and she wants her transferred to [place] where her doctor is located. Dr Nolasco is a internet retailer. The daughter stated that she would call if we were unable to get her Mother transferred to [place]. ICU nurse notified the patient's son, Gavino who was ok with his sister requesting a transfer for his Mother. He reported that his Mother had been put out of his sister's house recently. And she began living with him after that occurred. Using [place] [facility], the patient has been accepted by hospitalist, Dr Case. Initially spoke with internet retailer, Dr Sheth who agreed to be a erp implementation consultant.
[2018-07-14] MEDS: Simvastatin 20 MG Tab PO SCH (22:16)
[2018-07-14] MEDS ORDERED: hydrALAZINE 20 MG/ML SDV ONE (22:31)
[2018-07-15] MEDS ORDERED: Lactated Ringers 1,000 ML IV SCH (05:00)
--- NOTE | 2018-07-15 07:58 | CT ---
CT angiogram of brain Technique: Multiple axial sections through the brain were obtained. Intravenous contrast was utilized. Study performed as a CT angiogram protocol. Findings: Middle cerebral arteries show no focal occlusion or significant stenosis. Both anterior cerebral arteries showed no occlusion or discrete stenosis. Carotid siphon appears to be patent. Atherosclerotic calcification seen within the right vertebral vessel. Left vertebral vessel is poorly seen. Posterior cerebral arteries show opacification bilaterally without focal stenosis or occlusion. Basilar artery is supplied mostly by the right vertebral artery. Impression: 1. Poorly seen left vertebral artery, right vertebral artery mostly supplies the basilar artery. 2. Other portions of the intracranial CT angiogram shows no discrete abnormality. Diagnostic code #3 I agree with preliminary report from [facility], finalized on 07/13/18, 6:42 PM Central Time
--- NOTE | 2018-07-15 07:58 | CT ---
CT angiogram of neck Technique: Multiple axial sections through the neck were obtained. Study is suboptimal due to problems with contrast timing. Findings: No gross occlusion is seen within the common carotid arteries. Right vertebral artery appears to be patent. Poorly seen left vertebral artery is noted. Atherosclerotic plaque noted within the carotid bulb on both sides. No discrete stenosis within the internal carotid arteries. Impression: 1. Suboptimal study. Poorly seen left vertebral artery and difficult to exclude significant stenosis or occlusion. 2. Calcified plaque mostly within the carotid bulbs. 3. No gross stenosis or occlusion seen within the common carotid arteries or internal carotid arteries. Right vertebral artery shows no discrete abnormality. Further evaluation could be performed by MR angiogram if patient's condition permits. Diagnostic code #3 I agree with preliminary report from [facility], finalized on 6018, 6:20 PM Central Time
--- NOTE | 2018-07-15 08:30 | PCM.DCSUM1 ---
Discharge Summary - Hospital Course Free Text/Narrative:: Reason for transfer, daughter request; patient agreed to the daughter's request on 07/14/18. Earlier in the admission on Sunday, the patient also agreed with her son, Gavino that she wanted to live in a intermediate. Nursing notes 07/14/181939- Patient's daughter, Sofia, came to visit pt and is now requesting a transfer to [facility] since the patient's "normal" doctor, Dr. Nolasco, is there. Daughter reports pt is more swollen than normal and wants her to see Dr. Nolasco her heart doctor. Pt agrees that she wishes to be transferred to [facility]. Dr. Cooper updated and will call [facility]. 1950- Gavino, patient's son, called and updated on patient's requests and Sofia 's request. States the patient was staying with Sofia until she "kicked her out " and has then been living with him. Gavino agreed to transfer if accepted if that is patient's wishes. 07/13/18 1049-pt son Don at bedside, pt and son both express interest in SNF, pt has lived with son for 6 months and he expressed caring for her is like caring for a 5 year old and he has 4 kids already. ############### Simple note by Hospitalist 07/14/182031-Called to the ICU to meet the patient's daughter, Sofia who reports that her Mother is in heart failure and she wants her transferred to [place] where her doctor is located. She reports that, "Dr Nolasco is a application infrastructure engineer". The daughter stated that she would call if we were unable to get her Mother transferred to [place]. ICU nurse notified the patient's son, Gavino who was ok with his sister requesting a transfer for his Mother. He reported that his Mother had been put out of his sister's house recently. And she began living with him after that occurred. Using [facility], the patient has been accepted by hospitalist, Dr Case. Initially spoke with application infrastructure engineer, Dr Sheth who agreed to be a alliances consultant. HPI Initial Comments: 73 year old female was unable to provide history to the hospitalist service, she was reportedly having syncopal spells, duration is unknown. Loose stool, frequent as often as 8-10 per day was reported to the ED provider. Additionally N/V was also occurring. Fever./chills are unknown. The patient's genitals were covered with fecal matter, there is apparent stool and urine incontinence. The events mentioned were per the ED provider; the hospitalist service was able to speak to EMS prior to admission on the state of the home during the patient's assessment. The patient is living with a son, the duration is unknown. No apparent source of the diarrhea has been found. When the patient was questioned by the hospitalsit service no information was forthcoming. An EMS area intelligence technician stated that the house where she was picked up was full of stool and vomit. The patient had been living in [place], [place]. The patient was unable to provide additional information. - Discharge Data Discharge Date: 07/14/18 Discharge Disposition: DC/Tfer to [facility] 02 Condition: Stable - Patient Summary/Data Consults: Consultations 07/13/18 09:57 Consult to Speech Language Pathology [STEWARD/STEWARDESS BATH Evaluation and Treatment] [CONS] Routine - Discharge Plan *PRESCRIPTION DRUG MONITORING PROGRAM REVIEWED*: Not Applicable *COPY OF PRESCRIPTION DRUG MONITORING REPORT IN PATIENT YINA: Not Applicable Home Medications: Home Meds Clopidogrel [Plavix] 75 mg PO DAILY 02/16/18 [History] Lisinopril 5 mg PO DAILY 02/16/18 [History] atorvaSTATin Calcium [Lipitor] 20 mg PO DAILY 02/16/18 [History] metFORMIN [Glucophage XR] 500 mg PO BID #60 tab.er 02/16/18 [Rx] Metoprolol Tartrate 25 mg PO DAILY 07/12/18 [History] glyBURIDE [Glyburide] 2.5 mg PO DAILY 07/12/18 [History] Forms: ED Department Discharge Referrals: PCP,Unknown [Ordering Only Provider] - - Discharge Summary/Plan Comment DC Time >30 min.: Yes Discharge Summary/Plan Comment: Impression: Query home environment, conflicting reports on home environment Doubt acute gastroenteritis; reported > 8 stools; overnight 1 stool. Orthostatics/Dehydration--IVF; follow I/Os Confusion/delirium, NOS Dizziness/presyncopal, see above; doubt ischemia History of CAD with ID changes on ECG CHF, BNP 999-->1279-->>~600 urine output ~>70 cc/hr Chronic PPM PVD CAD Diabetes mellitus type 2 Plan: Resp infectious work up Ischemic work up Droplet isolation Stool studies-->negative C diff, etc. Orthostatics CVA work up: CTA head/neck final report pending; neuro checks 2D echo on 07/15/18. consult re: home environment; 960 if needed. Consult PT/OT/CM- EMR/clinic records DVT/GI prophylaxis - General Info Date of Service: 07/02/18 Functional Status: Reports: Pain Controlled, Tolerating Diet, Urinating - Review of Systems General: Reports: Weakness HEENT: Reports: No Symptoms Pulmonary: Reports: No Symptoms Cardiovascular: Reports: Lightheadedness Gastrointestinal: Reports: No Symptoms Genitourinary: Reports: No Symptoms Musculoskeletal: Reports: No Symptoms Skin: Reports: No Symptoms Neurological: Reports: No Symptoms Psychiatric: Reports: Confusion - Patient Data Vitals - Most Recent: Last Vital Signs Temp 36.8 C 07/14/18 22:00 Pulse 82 07/14/18 22:00 Resp 18 07/14/18 22:00 BP 148/69 H 07/14/18 22:00 Pulse Ox 95 07/14/18 22:00 Orthostatic Blood Pressure [ 154/63 Supine] Orthostatic Blood Pressure [ 85/62 Standing] Orthostatic Blood Pressure [ 102/84 Sitting] Weight - Most Recent: 76.702 kg I&O - Last 24 hours: Intake & Output 07/14/18 07/15/18 07/15/18 22:59 06:59 14:59 Intake Total 1490 Output Total 1170 Balance 320 Lab Results - Last 24 hrs: Laboratory Results - last 24 hr 07/14/18 07/14/18 07/14/18 Range/Units 11:17 16:52 20:45 POC Glucose 263 H 130 H 297 H (83-110) mg/dL ALEX Results - Last 24 hrs: Microbiology 07/12/18 15:00 Stool Culture - Preliminary Stool / Feces Shiga Toxin I - Final NEGATIVE FOR SHIGA TOXIN 1 Shiga Toxin II - Final NEGATIVE FOR SHIGA TOXIN 2 07/12/18 15:55 Aerobic Blood Culture - Preliminary Blood - Venous - Lab Draw NO GROWTH AFTER 2 DAYS Anaerobic Blood Culture - Final 07/12/18 15:45 Aerobic Blood Culture - Preliminary Blood - Venous NO GROWTH AFTER 2 DAYS Anaerobic Blood Culture - Final Med Orders - Current: Current Medications Discontinued Medications Clopidogrel Bisulfate (Plavix) 75 mg PO DAILY [facility] Last Admin: 07/14/18 08:58 Dose: 75 mg Dextrose/Water (Dextrose 50% In Water) 50 ml IVPUSH ASDIRECTED PRN PRN Reason: Hypoglycemia Furosemide (Lasix) 20 mg IVPUSH ONETIME ONE Stop: 07/13/18 03:01 Last Admin: 07/13/18 02:07 Dose: 20 mg Furosemide (Lasix) 20 mg IVPUSH ONETIME ONE Stop: 07/14/18 03:01 Last Admin: 07/14/18 02:02 Dose: 20 mg Furosemide (Lasix) 20 mg IVPUSH DAILY [facility] Last Admin: 07/14/18 10:21 Dose: Not Given Furosemide (Lasix) 20 mg IVPUSH ONETIME ONE Stop: 07/14/18 18:01 Last Admin: 07/14/18 17:57 Dose: 20 mg Haloperidol Lactate (Haldol) 1 mg IVPUSH ONETIME ONE Stop: 07/13/18 15:35 Last Admin: 07/13/18 15:41 Dose: 1 mg Haloperidol Lactate (Haldol) Confirm Administered Dose 5 mg .ROUTE .STK-MED ONE Stop: 07/13/18 15:41 Last Admin: 07/13/18 16:36 Dose: Not Given Haloperidol Lactate (Haldol) 1 mg IVPUSH ONETIME ONE Stop: 07/13/18 16:01 Last Admin: 07/13/18 16:40 Dose: 1 mg Hydralazine HCl (Apresoline) Confirm Administered Dose 20 mg .ROUTE .STK-MED ONE Stop: 07/14/18 22:32 Last Admin: 07/14/18 22:41 Dose: Not Given Sodium Chloride (Normal Saline) 1,000 mls @ 200 mls/hr IV ASDIRECTED [facility] Last Admin: 07/12/18 15:48 Dose: 200 mls/hr Magnesium Sulfate 4 gm/ Premix 100 mls @ 25 mls/hr IV ONETIME ONE Stop: 07/12/18 20:32 Last Admin: 07/12/18 22:05 Dose: 25 mls/hr Dextrose/Sodium Chloride (Dextrose 5%-Normal Saline) 1,000 mls @ 75 mls/hr IV ASDIRECTED [facility] Last Admin: 07/13/18 11:55 Dose: 75 mls/hr Sodium Chloride (Normal Saline) 250 mls @ 75 mls/hr IV ASDIRECTED LUCINDA Sodium Chloride (Normal Saline) 1,000 mls @ 75 mls/hr IV ASDIRECTED LUCINDA Stop: 07/14/18 01:15 Last Admin: 07/13/18 19:23 Dose: 75 mls/hr Magnesium Sulfate 4 gm/ Premix 100 mls @ 25 mls/hr IV ONETIME ONE Stop: 07/14/18 09:30 Last Admin: 07/14/18 10:36 Dose: 25 mls/hr Lactated Ringer's (Ringers, Lactated) 1,000 mls @ 999 mls/hr IV .BOLUS ONE Stop: 07/14/18 12:51 Last Admin: 07/14/18 11:56 Dose: 999 mls/hr Lactated Ringer's (Ringers, Lactated) 1,000 mls @ 150 mls/hr IV ASDIRECTED LUCINDA Stop: 07/14/18 19:00 Last Admin: 07/14/18 13:35 Dose: 150 mls/hr Lactated Ringer's (Ringers, Lactated) 1,000 mls @ 75 mls/hr IV ASDIRECTED LUCINDA Last Admin: 07/14/18 19:28 Dose: 75 mls/hr Lactated Ringer's (Ringers, Lactated) 1,000 mls @ 100 mls/hr IV ASDIRECTED [facility] Insulin Human Lispro (Humalog) 0 unit SUBCUT QIDACANDBED [facility]; Protocol Last Admin: 07/14/18 21:00 Dose: 3 unit Iopamidol (Isovue-300 (61%)) 100 ml IVPUSH ONETIME ONE Stop: 07/12/18 17:56 Last Admin: 07/12/18 18:21 Dose: 100 ml Iopamidol (Isovue-370 (76%)) 100 ml IVPUSH ONETIME ONE Stop: 07/13/18 16:20 Last Admin: 07/13/18 16:20 Dose: 100 ml Lorazepam (Ativan) 1 mg IVPUSH Q6H PRN PRN Reason: Seizures Lorazepam (Ativan) 2 mg IVPUSH ONETIME ONE Stop: 07/13/18 15:36 Last Admin: 07/13/18 15:42 Dose: 2 mg Metoclopramide HCl (Reglan) 7.5 mg IVPUSH ONETIME ONE Stop: 07/12/18 15:22 Last Admin: 07/12/18 15:48 Dose: 7.5 mg Metoclopramide HCl (Reglan) 5 mg IVPUSH ONETIME ONE Stop: 07/12/18 17:32 Last Admin: 07/12/18 17:47 Dose: 5 mg Metoprolol Tartrate (Lopressor) 12.5 mg PO Q12H [facility] Last Admin: 07/14/18 20:56 Dose: 12.5 mg Miscellaneous Information (Remove Patch) 1 ea TRDERM QPM [facility] Last Admin: 07/14/18 18:15 Dose: 1 ea Nicotine (Habitrol) 21 mg TRDERM QPM [facility] Last Admin: 07/14/18 17:58 Dose: 21 mg Potassium Chloride (Klor-Con M20) 40 meq PO BID [facility] Stop: 07/15/18 09:01 Last Admin: 07/14/18 22:16 Dose: Not Given Simvastatin (Zocor) 20 mg PO DAILY [facility] Simvastatin (Zocor) 20 mg PO BEDTIME [facility] Last Admin: 07/14/18 22:16 Dose: Not Given Spironolactone (Aldactone) 25 mg PO DAILY [facility] Stop: 07/17/18 09:01 Last Admin: 07/14/18 11:21 Dose: 25 mg - Exam Quality Assessment: Reports: DVT Prophylaxis General: Reports: Alert, Oriented, Cooperative, No Acute Distress HEENT: Reports: Pupils Equal, Pupils Reactive, EOMI Neck: Reports: Trachea Midline, No JVD Lungs: Reports: Normal Respiratory Effort, Decreased Breath Sounds Cardiovascular: Reports: Regular Rate, Regular Rhythm GI/Abdominal Exam: Normal Bowel Sounds, Soft, Non-Tender, No Organomegaly, No Distention (Female) Exam: Deferred Rectal (Female) Exam: Deferred Back Exam: Reports: Normal Inspection Extremities: Normal Inspection, Non-Tender, Normal Capillary Refill, Pedal Edema (trace) Skin: Reports: Warm Neurological: Reports: No New Focal Deficit, Normal Speech Psy/Mental Status: Reports: Alert
== END 2018-07-14 22:37 | DRG 312 ==
LOC: JD.ED 14:43 → JD.ICU 19:53
PROVIDERS: ADMIT Internal Medicine Cardiovascular Disease; ATTEND Internal Medicine Cardiovascular Disease
DX: K52.9 Noninfective gastroenteritis and colitis, unspecified (principal); I95.1 Orthostatic hypotension; F05 Delirium due to known physiological condition; E86.0 Dehydration; E78.00 Pure hypercholesterolemia, unspecified; E86.9 Volume depletion, unspecified; E11.51 Type 2 diabetes mellitus with diabetic peripheral angiopathy without gangrene; I11.0 Hypertensive heart disease with heart failure; I50.9 Heart failure, unspecified; I73.9 Peripheral vascular disease, unspecified; M54.5 Low back pain; R32 Unspecified urinary incontinence; J44.9 Chronic obstructive pulmonary disease, unspecified; F17.210 Nicotine dependence, cigarettes, uncomplicated; G89.29 Other chronic pain; M19.90 Unspecified osteoarthritis, unspecified site; K59.09 Other constipation; F32.9 Major depressive disorder, single episode, unspecified; D72.829 Elevated white blood cell count, unspecified; I25.10 Atherosclerotic heart disease of native coronary artery without angina pectoris; I25.2 Old myocardial infarction; Z95.5 Presence of coronary angioplasty implant and graft; Z79.84 Long term (current) use of oral hypoglycemic drugs; Z90.49 Acquired absence of other specified parts of digestive tract; R53.1 Weakness; R05 Cough; R53.81 Other malaise; R53.83 Other fatigue; R06.02 Shortness of breath; R35.0 Frequency of micturition; R26.2 Difficulty in walking, not elsewhere classified; R60.0 Localized edema; I45.81 Long QT syndrome; R41.0 Disorientation, unspecified; R42 Dizziness and giddiness; R11.2 Nausea with vomiting, unspecified; R41.82 Altered mental status, unspecified; R55 Syncope and collapse; Z87.440 Personal history of urinary (tract) infections; Z79.899 Other long term (current) drug therapy; Z95.0 Presence of cardiac pacemaker
CPT/HCPCS: 36415; 70450; 71045; 74177; 80053; 80306; 81001; 82962 ×2; 83735; 83880; 84484; 85007; 85027; 85610; 85652; 86140; 86738; 87040 ×2; 87046; 87425; 87427 ×2; 87493 ×2; 87804 ×2; 87899; 89055; 93005; 96361; 96374; 96376; 99285; J2765 ×2; J7040; Q9967; 70496; 70496-26; 70498; 70498-26; 80048; 80061; 83036; 83605; 84443; 85025; 87486; 87581; 87632; 87798; 87807; 93010; A9270-GY; J1630; J2060; J3475; J7042; J7120

== ENCOUNTER 2020-11-20 08:53 | Observation (INO) | payer MEDICARE ==
--- NOTE | 2020-11-20 09:21 | EDM.PDOC ---
ED HPI GENERAL MEDICAL PROBLEM - General Chief Complaint: General Stated Complaint: [facility] Time Seen by Provider: 11/20/20 09:21 - History of Present Illness INITIAL COMMENTS - FREE TEXT/NARRATIVE: 75-year-old female brought in from the [facility] with an unresponsive episode. She is found to be hypoglycemic. The patient has type 2 diabetes and is on insulin she received her routine long-acting and short acting insulin this morning. She was started on D10 by EMS they got her blood sugar up to the 90s. She was in the 70s when she arrived here after the D10 was stopped. The patient's baseline is some degree of dementia and at times gets combative she is able to answer simple questions here. There is no report of head injury. At this time the patient does not have any specific requests and denies any pain or injury. - Related Data Allergies Allergy/AdvReac Type Severity Reaction Status Date / Time No Known Allergies Allergy Verified 11/20/20 09:02 Home Meds: Home Meds Lisinopril 5 mg PO DAILY 02/16/18 [History] metFORMIN [Glucophage XR] 500 mg PO BID #60 tab.er 02/16/18 [Rx] Aspirin [Aspirin EC] 81 mg PO DAILY 11/20/20 [History] Cholecalciferol (Vitamin D3) [Vitamin D3] 2,000 unit PO DAILY 11/20/20 [History] DULoxetine [Cymbalta] 60 mg PO DAILY 11/20/20 [History] Insulin Detemir [Levemir Flextouch] 5 unit SQ BEDTIME 11/20/20 [History] Insulin Detemir [Levemir Flextouch] 18 unit SQ ACBREAKFAST 11/20/20 [History] Insulin Lispro [Humalog] 4 unit SQ TIDAC 11/20/20 [History] LORazepam [Ativan] 1 mg PO BID PRN 11/20/20 [History] Multivitamin [Multi-Vitamin Daily] 1 each PO DAILY 11/20/20 [History] Sennosides/Docusate Sodium [Senna Plus 8.6-50 mg Tablet] 1 each PO BID 11/20/20 [History] Past Medical History Cardiovascular History: Reports: High Cholesterol, Hypertension, PR, Pacemaker, PVD (Significant peripheral vascular disease.), Stents Gastrointestinal History: Reports: Chronic Constipation Genitourinary History: Reports: UTI, Recurrent Musculoskeletal History: Reports: Arthritis, Back Pain, Chronic Psychiatric History: Reports: Depression Endocrine/Metabolic History: Reports: Diabetes, Type II - Infectious Disease History Infectious Disease History: Reports: Chicken Pox - Past Surgical History GI Surgical History: Reports: Cholecystectomy Musculoskeletal Surgical History: Reports: ORIF Other Musculoskeletal Surgeries/Procedures:: left hip Social & Family History - Family History Family Medical History: No Pertinent Family History - Tobacco Use Tobacco Use Status *Q: Former Tobacco User Years of Tobacco use: 0 Packs/Tins Daily: 0 Used Tobacco, but Quit: Yes Month/Year Tobacco Last Used: unknown - Caffeine Use Caffeine Use: Reports: Coffee - Recreational Drug Use Recreational Drug Use: No - Living Situation & Occupation Living situation: Reports: , Alone Occupation: Retired ED ROS GENERAL - Review of Systems Review Of Systems: See Below Constitutional: Reports: No Symptoms HEENT: Reports: No Symptoms Respiratory: Reports: No Symptoms Cardiovascular: Reports: No Symptoms Endocrine: Reports: Low Glucose GI/Abdominal: Reports: No Symptoms : Reports: No Symptoms Musculoskeletal: Reports: No Symptoms ED EXAM, GENERAL - Physical Exam Exam: See Below Exam Limited By: Other (Patient answer simple questions for me she is noncombative) General Appearance: Alert, No Apparent Distress Eye Exam: Bilateral Eye: Normal Inspection, PERRL Ears: Normal External Exam, Normal Canal, Hearing Grossly Normal, Normal TMs Nose: Normal Inspection, Normal Mucosa, No Blood Throat/Mouth: Normal Inspection, Normal Lips, Normal Gums, Normal Oropharynx, Normal Voice, No Airway Compromise, Other (Mucous membranes appear dry). No: Normal Teeth (She has no remaining teeth) Head: Atraumatic, Normocephalic Neck: Normal Inspection, Supple, Non-Tender, Full Range of Motion. No: Lymphadenopathy (L), Lymphadenopathy (R) Respiratory/Chest: No Respiratory Distress, Lungs Clear, Normal Breath Sounds Cardiovascular: Regular Rate, Rhythm, No Murmur, Other (Scant lower extremity edema) GI/Abdominal: Normal Bowel Sounds, Soft, Non-Tender Back Exam: Normal Inspection. No: CVA Tenderness (L), CVA Tenderness (R) Extremities: Normal Inspection, Other (No calf tenderness scant edema) #1 Interpretation EKG Date: 11/20/20 Rhythm: NSR Rate (Beats/Min): 78 [place]: LAD-Left [place] Deviation P-Wave: Present QRS: Other (Incomplete left bundle branch block) ST-T: Normal QT: Normal Comparison: Change From Previous EKG (There has been some loss in R wave in leads V3 through 6 and in the inferior leads compared to February 16, 2018) EKG Interpretation Comments: Abnormal Course - Vital Signs Last Recorded V/S: Last Vital Signs Temp 35.6 C L 11/20/20 09:02 Pulse 78 11/20/20 09:02 Resp 9 L 11/20/20 09:02 BP 142/77 H 11/20/20 09:02 Pulse Ox 92 L 11/20/20 09:02 - Orders/Labs/Meds Orders: Active Orders 24 hr Category Date Time Status Patient Status [ADT] Routine ADT 11/20/20 13:42 Active Bladder Scan [RC] ASDIRECTED Care 11/20/20 10:30 Active Blood Glucose Check, Bedside [RC] ONETIME Care 11/20/20 09:16 Active EKG Documentation Completion [RC] STAT Care 11/20/20 09:29 Active Urinary Catheter Assessment [RC] ASDIRECTED Care 11/20/20 10:46 Active Urinary Catheter Insertion [Insert Urinary Catheter] [ Care 11/20/20 11:00 Ordered OM.PC] Q24H CULTURE URINE [MREF] Stat Lab 11/20/20 10:40 Received Aspirin [Halfprin] Med 11/21/20 09:00 Active 81 mg PO DAILY Cholecalciferol (Vitamin D3) [Vitamin D3] Med 11/21/20 09:00 Active 50 mcg PO DAILY DULoxetine [Cymbalta] Med 11/21/20 09:00 Active 60 mg PO DAILY Dextrose 5%-0.9% NaCl [Dextrose 5%-Normal Saline] 1,000 Med 11/20/20 09:30 Active ml IV ASDIRECTED LORazepam [Ativan] Med 11/20/20 13:41 Active 1 mg PO BID PRN Multivitamins [Tab-A-Rae] Med 11/21/20 09:00 Active 1 tab PO DAILY cefTRIAXone [Rocephin] 2 gm Med 11/20/20 13:30 Active Sodium Chloride 0.9% [Normal Saline] 100 ml IV Q24H lisinopriL [Prinivil] Med 11/21/20 09:00 Active 5 mg PO DAILY metFORMIN [Glucophage] Med 11/20/20 17:00 Active 500 mg PO BIDMEALS Medication Orders Aspirin (Aspirin 81 Mg Tab.Ec) 81 mg PO DAILY [facility] Cholecalciferol (Cholecalciferol (Vitamin D3) 25 Mcg Tab) 50 mcg PO DAILY [facility] Duloxetine HCl (Duloxetine 30 Mg Cap) 60 mg PO DAILY [facility] Dextrose/Sodium Chloride (Dextrose 5%-Normal Saline) 1,000 mls @ 100 mls/hr IV ASDIRECTED LUCINDA Last Admin: 11/20/20 09:50 Dose: 100 mls/hr Documented by: HUGECHR Ceftriaxone Sodium 2 gm/ (Sodium Chloride) 100 mls @ 200 mls/hr IV Q24H [facility] Lisinopril (Lisinopril 5 Mg Tab) 5 mg PO DAILY [facility] Lorazepam (Lorazepam 1 Mg Tab) 1 mg PO BID PRN PRN Reason: Agitation Metformin HCl (Metformin 500 Mg Tab) 500 mg PO BIDMEALS [facility] Multivitamins/Minerals/Vitamin C (Multivitamin Tab) 1 tab PO DAILY [facility] Labs: Laboratory Tests 11/20/20 11/20/20 11/20/20 Range/Units 09:14 09:40 09:40 WBC 12.27 H (3.98-10.04) K/mm3 RBC 4.18 (3.98-5.22) M/mm3 Hgb 12.5 (11.2-15.7) gm/dl Hct 38.2 (34.1-44.9) % MCV 91.4 D (79.4-94.8) fl MCH 29.9 (25.6-32.2) pg MCHC 32.7 (32.2-35.5) g/dl RDW Std Deviation 41.5 (36.4-46.3) fL Plt Count 303 D (182-369) K/mm3 MPV 9.3 L (9.4-12.3) fl Neut % (Auto) 81.6 H (34.0-71.1) % Lymph % (Auto) 11.2 L (19.3-51.7) % [place] % (Auto) 5.4 (4.7-12.5) % Eos % (Auto) 1.4 (0.7-5.8) Baso % (Auto) 0.2 (0.1-1.2) % Neut # (Auto) 10.01 H (1.56-6.13) K/mm3 Lymph # (Auto) 1.38 (1.18-3.74) K/mm3 [place] # (Auto) 0.66 H (0.24-0.36) K/mm3 Eos # (Auto) 0.17 (0.04-0.36) K/mm3 Baso # (Auto) 0.03 (0.01-0.08) K/mm3 Manual Slide Review Abnormal smear Sodium 144 (136-145) mEq/L Potassium 4.1 (3.5-5.1) mEq/L Chloride 105 (98-107) mEq/L Carbon Dioxide 32 (21-32) mEq/L Anion Gap 11.1 (5-15) BUN 15 (7-18) mg/dL Creatinine 0.8 (0.55-1.02) mg/dL Est Cr Clr Drug Dosing TNP Estimated GFR (MDRD) > 60 (>60) mL/min BUN/Creatinine Ratio 18.8 H (14-18) Glucose 75 (70-99) mg/dL POC Glucose 78 (70-99) mg/dL Calcium 9.0 (8.5-10.1) mg/dL Total Bilirubin 0.2 (0.2-1.0) mg/dL AST 18 (15-37) U/L ALT 19 (14-59) U/L Alkaline Phosphatase 67 (46-116) U/L Troponin I 0.074 H* (0.00-0.056) ng/mL Total Protein 6.5 (6.4-8.2) g/dl Albumin 2.8 L (3.4-5.0) g/dl Globulin 3.7 gm/dL Albumin/Globulin Ratio 0.8 L (1-2) Urine Color (Yellow) Urine Appearance (Clear) Urine pH (5.0-8.0) Ur Specific [place] (1.005-1.030) Urine Protein (Negative) Urine Glucose (UA) (Negative) Urine Ketones (Negative) Urine Occult Blood (Negative) Urine Nitrite (Negative) Urine Bilirubin (Negative) Urine Urobilinogen (0.2-1.0) Ur Leukocyte Esterase (Negative) Urine RBC (0-5) /hpf Urine WBC (0-5) /hpf Urine WBC Clumps (NOT SEEN) /hpf Ur Epithelial Cells (0-5) /hpf Urine Bacteria (FEW) /hpf Urine Mucus (FEW) /hpf 11/20/20 11/20/20 11/20/20 Range/Units 10:40 11:31 11:40 WBC (3.98-10.04) K/mm3 RBC (3.98-5.22) M/mm3 Hgb (11.2-15.7) gm/dl Hct (34.1-44.9) % MCV (79.4-94.8) fl MCH (25.6-32.2) pg MCHC (32.2-35.5) g/dl RDW Std Deviation (36.4-46.3) fL Plt Count (182-369) K/mm3 MPV (9.4-12.3) fl Neut % (Auto) (34.0-71.1) % Lymph % (Auto) (19.3-51.7) % [place] % (Auto) (4.7-12.5) % Eos % (Auto) (0.7-5.8) Baso % (Auto) (0.1-1.2) % Neut # (Auto) (1.56-6.13) K/mm3 Lymph # (Auto) (1.18-3.74) K/mm3 [place] # (Auto) (0.24-0.36) K/mm3 Eos # (Auto) (0.04-0.36) K/mm3 Baso # (Auto) (0.01-0.08) K/mm3 Manual Slide Review Sodium (136-145) mEq/L Potassium (3.5-5.1) mEq/L Chloride (98-107) mEq/L Carbon Dioxide (21-32) mEq/L Anion Gap (5-15) BUN (7-18) mg/dL Creatinine (0.55-1.02) mg/dL Est Cr Clr Drug Dosing Estimated GFR (MDRD) (>60) mL/min BUN/Creatinine Ratio (14-18) Glucose (70-99) mg/dL POC Glucose 77 (70-99) mg/dL Calcium (8.5-10.1) mg/dL Total Bilirubin (0.2-1.0) mg/dL AST (15-37) U/L ALT (14-59) U/L Alkaline Phosphatase (46-116) U/L Troponin I 0.065 H* (0.00-0.056) ng/mL Total Protein (6.4-8.2) g/dl Albumin (3.4-5.0) g/dl Globulin gm/dL Albumin/Globulin Ratio (1-2) Urine Color Yellow (Yellow) Urine Appearance Cloudy H (Clear) Urine pH 7.5 (5.0-8.0) Ur Specific [place] 1.020 (1.005-1.030) Urine Protein 2+ H (Negative) Urine Glucose (UA) Negative (Negative) Urine Ketones Negative (Negative) Urine Occult Blood 1+ H (Negative) Urine Nitrite Positive H (Negative) Urine Bilirubin Negative (Negative) Urine Urobilinogen 0.2 (0.2-1.0) Ur Leukocyte Esterase 3+ H (Negative) Urine RBC 0-5 (0-5) /hpf Urine WBC >100 H (0-5) /hpf Urine WBC Clumps Few (NOT SEEN) /hpf Ur Epithelial Cells 0-5 (0-5) /hpf Urine Bacteria Many H (FEW) /hpf Urine Mucus Not seen (FEW) /hpf Meds: Medications Generic Name Dose Route Start Last Admin Trade Name Freq PRN Reason Stop Dose Admin Aspirin 81 mg 11/21/20 09:00 Aspirin 81 Mg Tab.Ec PO DAILY [facility] Cholecalciferol 50 mcg 11/21/20 09:00 Cholecalciferol (Vitamin D3) 25 Mcg Tab PO DAILY [facility] Duloxetine HCl 60 mg 11/21/20 09:00 Duloxetine 30 Mg Cap PO DAILY [facility] Dextrose/Sodium Chloride 1,000 mls @ 100 mls/hr 11/20/20 09:30 11/20/20 09:50 Dextrose 5%-Normal Saline IV 100 mls/hr ASDIRECTED LUCINDA Administration Ceftriaxone Sodium 2 gm/ 100 mls @ 200 mls/hr 11/20/20 13:30 Sodium Chloride IV Q24H [facility] Lisinopril 5 mg 11/21/20 09:00 Lisinopril 5 Mg Tab PO DAILY [facility] Lorazepam 1 mg 11/20/20 13:41 Lorazepam 1 Mg Tab PO BID PRN Agitation Metformin HCl 500 mg 11/20/20 17:00 Metformin 500 Mg Tab PO BIDMEALS [facility] Multivitamins/Minerals/Vitamin C 1 tab 11/21/20 09:00 Multivitamin Tab PO DAILY [facility] - Re-Assessments/Exams Free Text/Narrative Re-Assessment/Exam: 11/20/20 13:21 , Shows she has a urinary tract infection her blood sugars have been staying stable and were attempting to eat this patient I am concerned if we send her back to the intermediate facility she might be a bit much at this point I talked it over with our hospitalist Dr. Howard, we will place the patient on observation treat her urinary tract infection reevaluate in the morning. Departure - Departure Time of Disposition: 13:21 Disposition: Refer to Observation Clinical Impression: Hypoglycemia Urinary tract infection Qualifiers: Urinary tract infection type: acute cystitis Hematuria presence: with hematuria Qualified Code(s): N30.01 - Acute cystitis with hematuria - Discharge Information Sepsis Event Note (ED) - Evaluation Sepsis Screening Result: No Definite Risk - Focused Exam Vital Signs: Vital Signs Temp Pulse Resp BP Pulse Ox 11/20/20 09:02 35.6 C L 78 9 L 142/77 H 92 L - My Orders Last 24 Hours: My Active Orders 11/20/20 09:16 Blood Glucose Check, Bedside [RC] ONETIME 11/20/20 09:29 EKG Documentation Completion [RC] STAT 11/20/20 09:30 Dextrose 5%-0.9% NaCl [Dextrose 5%-Normal Saline] 1,000 ml IV ASDIRECTED 11/20/20 10:30 Bladder Scan [RC] ASDIRECTED 11/20/20 10:40 CULTURE URINE [MREF] Stat 11/20/20 10:46 Urinary Catheter Assessment [RC] ASDIRECTED 11/20/20 11:00 Urinary Catheter Insertion [Insert Urinary Catheter] [OM.PC] Q24H 11/20/20 13:30 cefTRIAXone [Rocephin] 2 gm Sodium Chloride 0.9% [Normal Saline] 100 ml IV Q24H 11/20/20 13:42 Patient Status [ADT] Routine - Assessment/Plan Last 24 Hours: My Active Orders 11/20/20 09:16 Blood Glucose Check, Bedside [RC] ONETIME 11/20/20 09:29 EKG Documentation Completion [RC] STAT 11/20/20 09:30 Dextrose 5%-0.9% NaCl [Dextrose 5%-Normal Saline] 1,000 ml IV ASDIRECTED 11/20/20 10:30 Bladder Scan [RC] ASDIRECTED 11/20/20 10:40 CULTURE URINE [MREF] Stat 11/20/20 10:46 Urinary Catheter Assessment [RC] ASDIRECTED 11/20/20 11:00 Urinary Catheter Insertion [Insert Urinary Catheter] [OM.PC] Q24H 11/20/20 13:30 cefTRIAXone [Rocephin] 2 gm Sodium Chloride 0.9% [Normal Saline] 100 ml IV Q24H 11/20/20 13:42 Patient Status [ADT] Routine
[2020-11-20] MEDS ORDERED: Dextrose 5%-0.9% NaCl 1,000 ML IV SCH (09:30)
--- NOTE | 2020-11-20 10:59 | CR ---
Chest: Portable view of the chest was obtained. Comparison: Prior chest x-ray of 07/12/18. AICD is noted. Heart size and mediastinum are normal. Surgical clips are seen within the left neck. Lungs are clear with no acute parenchymal change. Mild degenerative change is scattered within the spine. Impression: 1. Findings as noted above. 2. Nothing acute is seen on portable chest x-ray. Diagnostic code #2
[2020-11-20] MEDS ORDERED: cefTRIAXone 2 GM in Sodium Chloride 0.9% 100 ML IV SCH (13:30)
[2020-11-20] MEDS ORDERED: Ondansetron 4 MG Tab.DIS PO PRN (13:50)
[2020-11-20] MEDS ORDERED: Acetaminophen 325 MG Tab PO PRN (13:50)
[2020-11-20] MEDS ORDERED: Temazepam 7.5 MG Cap PO PRN (13:59)
[2020-11-20] MEDS ORDERED: Ondansetron 4 MG/2 ML SDV IV PRN (13:59)
[2020-11-20] MEDS ORDERED: Sodium Chloride 0.9% 1,000 ML IV SCH (14:00)
--- NOTE | 2020-11-20 14:04 | PCM.HP.2 ---
H&P History of Present Illness - General Date of Service: 11/20/20 Admit Problem/Dx: Admission Diagnosis/Problem Admission Diagnosis/Problem Urinary tract infection Source of Information: Patient History Limitations: Reports: Other (Mild dementia) - History of Present Illness Initial Comments - Free Text/Narative: The patient is a 75-year-old lady who has presented to the emergency department via [place] [facility]. She resides at [facility] and she was found t o be unresponsive. The patient at the time of transportation was found to be hypoglycemic and her blood sugars are brought up with the use of D10 by EMS. The patient does not have any other specific complaints at this time and she is unsure why she is here. The patient does have diabetes mellitus type 2 and is on insulin as well as Metformin. The patient was found to have a urinary tract infection and she had been given 2 g of Rocephin in the emergency department. The patient does have some mild dementia and she is not been able to participate well in her history and physical. Family members are not present. Onset of Symptoms: Reports: Unknown/Unsure Severity: Mild Improves with: Reports: None Worsens with: Reports: None Context: Reports: Other (Hypoglycemic episodes) Associated Symptoms: Reports: No Other Symptoms - Related Data Allergies/Adverse Reactions: Allergies Allergy/AdvReac Type Severity Reaction Status Date / Time No Known Allergies Allergy Verified 11/20/20 09:02 Home Medications: Home Meds Lisinopril 5 mg PO DAILY 02/16/18 [History] metFORMIN [Glucophage XR] 500 mg PO BID #60 tab.er 02/16/18 [Rx] Aspirin [Aspirin EC] 81 mg PO DAILY 11/20/20 [History] Cholecalciferol (Vitamin D3) [Vitamin D3] 2,000 unit PO DAILY 11/20/20 [History] DULoxetine [Cymbalta] 60 mg PO DAILY 11/20/20 [History] Insulin Detemir [Levemir Flextouch] 5 unit SQ BEDTIME 11/20/20 [History] Insulin Detemir [Levemir Flextouch] 18 unit SQ ACBREAKFAST 11/20/20 [History] Insulin Lispro [Humalog] 4 unit SQ TIDAC 11/20/20 [History] LORazepam [Ativan] 1 mg PO BID PRN 11/20/20 [History] Multivitamin [Multi-Vitamin Daily] 1 each PO DAILY 11/20/20 [History] Sennosides/Docusate Sodium [Senna Plus 8.6-50 mg Tablet] 1 each PO BID 11/20/20 [History] Past Medical History HEENT History: Reports: None Cardiovascular History: Reports: High Cholesterol, Hypertension, NM, Pacemaker, PVD, Stents Respiratory History: Reports: None Gastrointestinal History: Reports: Chronic Constipation Genitourinary History: Reports: UTI, Recurrent Musculoskeletal History: Reports: Arthritis, Back Pain, Chronic Neurological History: Reports: Alzheimers Disease Psychiatric History: Reports: Depression Endocrine/Metabolic History: Reports: Diabetes, Type II Hematologic History: Reports: None Immunologic History: Reports: None - Infectious Disease History Infectious Disease History: Reports: Chicken Pox - Past Surgical History GI Surgical History: Reports: Cholecystectomy Musculoskeletal Surgical History: Reports: ORIF Other Musculoskeletal Surgeries/Procedures:: left hip Social & Family History - Family History Family Medical History: No Pertinent Family History - Tobacco Use Tobacco Use Status *Q: Former Tobacco User Years of Tobacco use: 0 Packs/Tins Daily: 0 Used Tobacco, but Quit: Yes Month/Year Tobacco Last Used: unknown - Caffeine Use Caffeine Use: Reports: Coffee - Recreational Drug Use Recreational Drug Use: No - Living Situation & Occupation Living situation: Reports: , Alone, Extended Care Facility Occupation: Retired H&P Review of Systems - Review of Systems: Review Of Systems: Unable To Obtain Reason Not Obtained: Dementia Exam - Exam Exam: See Below - Vital Signs Vital Signs: Last Vital Signs Temp 35.6 C L 11/20/20 09:02 Pulse 78 11/20/20 09:02 Resp 9 L 11/20/20 09:02 BP 142/77 H 11/20/20 09:02 Pulse Ox 92 L 11/20/20 09:02 Weight: 73.936 kg - Exam Quality Assessment: DVT Prophylaxis. No: Supplemental Oxygen General: Alert, Oriented, Other (Confused as to circumstances) HEENT: Conjunctiva Clear, EACs Clear, EOMI, Mucosa Moist & [place], PERRLA Neck: Supple, Trachea Midline Lungs: Clear to Auscultation, Normal Respiratory Effort Cardiovascular: Regular Rate, Regular Rhythm GI/Abdominal Exam: Normal Bowel Sounds, Soft, Non-Tender, No Distention (Female) Exam: Deferred Rectal (Female) Exam: Deferred Back Exam: Normal Inspection (Appropriate for age), Full Range of Motion (Appropriate for age) Extremities: Normal Inspection, No Pedal Edema Neuro Extensive - Mental Status: Alert, Oriented x3 Psychiatric: Alert, Normal Affect, Depressed - Patient Data Lab Results Last 24 hrs: Laboratory Results - last 24 hr 11/20/20 11/20/20 11/20/20 Range/Units 09:14 09:40 09:40 WBC 12.27 H (3.98-10.04) K/mm3 RBC 4.18 (3.98-5.22) M/mm3 Hgb 12.5 (11.2-15.7) gm/dl Hct 38.2 (34.1-44.9) % MCV 91.4 D (79.4-94.8) fl MCH 29.9 (25.6-32.2) pg MCHC 32.7 (32.2-35.5) g/dl RDW Std Deviation 41.5 (36.4-46.3) fL Plt Count 303 D (182-369) K/mm3 MPV 9.3 L (9.4-12.3) fl Neut % (Auto) 81.6 H (34.0-71.1) % Lymph % (Auto) 11.2 L (19.3-51.7) % Dickinson % (Auto) 5.4 (4.7-12.5) % Eos % (Auto) 1.4 (0.7-5.8) Baso % (Auto) 0.2 (0.1-1.2) % Neut # (Auto) 10.01 H (1.56-6.13) K/mm3 Lymph # (Auto) 1.38 (1.18-3.74) K/mm3 Dickinson # (Auto) 0.66 H (0.24-0.36) K/mm3 Eos # (Auto) 0.17 (0.04-0.36) K/mm3 Baso # (Auto) 0.03 (0.01-0.08) K/mm3 Manual Slide Review Abnormal smear Sodium 144 (136-145) mEq/L Potassium 4.1 (3.5-5.1) mEq/L Chloride 105 (98-107) mEq/L Carbon Dioxide 32 (21-32) mEq/L Anion Gap 11.1 (5-15) BUN 15 (7-18) mg/dL Creatinine 0.8 (0.55-1.02) mg/dL Est Cr Clr Drug Dosing TNP Estimated GFR (MDRD) > 60 (>60) mL/min BUN/Creatinine Ratio 18.8 H (14-18) Glucose 75 (70-99) mg/dL POC Glucose 78 (70-99) mg/dL Calcium 9.0 (8.5-10.1) mg/dL Total Bilirubin 0.2 (0.2-1.0) mg/dL AST 18 (15-37) U/L ALT 19 (14-59) U/L Alkaline Phosphatase 67 (46-116) U/L Troponin I 0.074 H* (0.00-0.056) ng/mL Total Protein 6.5 (6.4-8.2) g/dl Albumin 2.8 L (3.4-5.0) g/dl Globulin 3.7 gm/dL Albumin/Globulin Ratio 0.8 L (1-2) Urine Color (Yellow) Urine Appearance (Clear) Urine pH (5.0-8.0) Ur Specific [place] (1.005-1.030) Urine Protein (Negative) Urine Glucose (UA) (Negative) Urine Ketones (Negative) Urine Occult Blood (Negative) Urine Nitrite (Negative) Urine Bilirubin (Negative) Urine Urobilinogen (0.2-1.0) Ur Leukocyte Esterase (Negative) Urine RBC (0-5) /hpf Urine WBC (0-5) /hpf Urine WBC Clumps (NOT SEEN) /hpf Ur Epithelial Cells (0-5) /hpf Urine Bacteria (FEW) /hpf Urine Mucus (FEW) /hpf 11/20/20 11/20/20 11/20/20 Range/Units 10:40 11:31 11:40 WBC (3.98-10.04) K/mm3 RBC (3.98-5.22) M/mm3 Hgb (11.2-15.7) gm/dl Hct (34.1-44.9) % MCV (79.4-94.8) fl MCH (25.6-32.2) pg MCHC (32.2-35.5) g/dl RDW Std Deviation (36.4-46.3) fL Plt Count (182-369) K/mm3 MPV (9.4-12.3) fl Neut % (Auto) (34.0-71.1) % Lymph % (Auto) (19.3-51.7) % Dickinson % (Auto) (4.7-12.5) % Eos % (Auto) (0.7-5.8) Baso % (Auto) (0.1-1.2) % Neut # (Auto) (1.56-6.13) K/mm3 Lymph # (Auto) (1.18-3.74) K/mm3 Dickinson # (Auto) (0.24-0.36) K/mm3 Eos # (Auto) (0.04-0.36) K/mm3 Baso # (Auto) (0.01-0.08) K/mm3 Manual Slide Review Sodium (136-145) mEq/L Potassium (3.5-5.1) mEq/L Chloride (98-107) mEq/L Carbon Dioxide (21-32) mEq/L Anion Gap (5-15) BUN (7-18) mg/dL Creatinine (0.55-1.02) mg/dL Est Cr Clr Drug Dosing Estimated GFR (MDRD) (>60) mL/min BUN/Creatinine Ratio (14-18) Glucose (70-99) mg/dL POC Glucose 77 (70-99) mg/dL Calcium (8.5-10.1) mg/dL Total Bilirubin (0.2-1.0) mg/dL AST (15-37) U/L ALT (14-59) U/L Alkaline Phosphatase (46-116) U/L Troponin I 0.065 H* (0.00-0.056) ng/mL Total Protein (6.4-8.2) g/dl Albumin (3.4-5.0) g/dl Globulin gm/dL Albumin/Globulin Ratio (1-2) Urine Color Yellow (Yellow) Urine Appearance Cloudy H (Clear) Urine pH 7.5 (5.0-8.0) Ur Specific [place] 1.020 (1.005-1.030) Urine Protein 2+ H (Negative) Urine Glucose (UA) Negative (Negative) Urine Ketones Negative (Negative) Urine Occult Blood 1+ H (Negative) Urine Nitrite Positive H (Negative) Urine Bilirubin Negative (Negative) Urine Urobilinogen 0.2 (0.2-1.0) Ur Leukocyte Esterase 3+ H (Negative) Urine RBC 0-5 (0-5) /hpf Urine WBC >100 H (0-5) /hpf Urine WBC Clumps Few (NOT SEEN) /hpf Ur Epithelial Cells 0-5 (0-5) /hpf Urine Bacteria Many H (FEW) /hpf Urine Mucus Not seen (FEW) /hpf Result Diagrams: 11/20/20 09:40 11/20/20 09:40 Sepsis Event Note - Evaluation Sepsis Screening Result: No Definite Risk - Focused Exam Vital Signs: Vital Signs Temp Pulse Resp BP Pulse Ox 11/20/20 09:02 35.6 C L 78 9 L 142/77 H 92 L *Q Meaningful Use (ADM) - VTE *Q VTE Mechanical Contraindications *Q: At Risk for Falls - Problem List (1) UTI (urinary tract infection) SNOMED Code(s): 42998742 ICD Code: N39.0 - URINARY TRACT INFECTION, SITE NOT SPECIFIED Status: Acute Priority: High Current Visit: Yes Qualifiers: Urinary tract infection type: acute cystitis Hematuria presence: with hemat uria Qualified Code(s): N30.01 - Acute cystitis with hematuria (2) Dementia SNOMED Code(s): 65736636 ICD Code: F03.90 - UNSPECIFIED DEMENTIA WITHOUT BEHAVIORAL DISTURBANCE Status: Chronic Priority: High Current Visit: Yes Qualifiers: Dementia type: unspecified type Dementia behavioral disturbance: without behavioral disturbance Qualified Code(s): F03.90 - Unspecified dementia without behavioral disturbance (3) Hypoglycemia SNOMED Code(s): 904762268 ICD Code: E16.2 - HYPOGLYCEMIA, UNSPECIFIED Status: Acute Priority: High Current Visit: Yes Problem List Initiated/Reviewed/Updated: Yes Orders Last 24hrs: Active Orders 24 hr Category Date Time Status Patient Status [ADT] Routine ADT 11/20/20 13:42 Active Patient Status [ADT] Routine ADT 11/20/20 13:43 Ordered Bladder Scan [RC] ASDIRECTED Care 11/20/20 10:30 Active Blood Glucose Check, Bedside [RC] ONETIME Care 11/20/20 09:16 Active Blood Glucose Check, Bedside [RC] TIDMEALS Care 11/20/20 13:59 Ordered EKG Documentation Completion [RC] STAT Care 11/20/20 09:29 Active Oxygen Therapy [RC] PRN Care 11/20/20 13:43 Ordered Up With Assistance [RC] ASDIRECTED Care 11/20/20 13:50 Ordered Urinary Catheter Assessment [RC] ASDIRECTED Care 11/20/20 10:46 Active Urinary Catheter Insertion [Insert Urinary Catheter] [ Care 11/20/20 11:00 Ordered OM.PC] Q24H VTE/DVT Education [RC] PER UNIT ROUTINE Care 11/20/20 13:43 Ordered Vital Signs [RC] Q4H Care 11/20/20 13:43 Ordered Consistent Carbohydrate Diet [DIET] Diet 11/20/20 Dinner Ordered CBC WITH AUTO DIFF [HEME] AM Lab 11/21/20 05:11 Ordered COMPREHENSIVE METABOLIC PN,CMP [CHEM] AM Lab 11/21/20 05:11 Ordered CORONAVIRUS COVID-19 DREA [MOLEC] Stat Lab 11/20/20 13:59 Ordered CULTURE URINE [MREF] Stat Lab 11/20/20 10:40 Received MAGNESIUM [CHEM] AM Lab 11/21/20 05:11 Ordered Acetaminophen [TylenoL] Med 11/20/20 13:50 Ordered 650 mg PO Q4H PRN Aspirin [Halfprin] Med 11/21/20 09:00 Ordered 81 mg PO DAILY Cholecalciferol (Vitamin D3) [Vitamin D3] Med 11/21/20 09:00 Ordered 2,000 unit PO DAILY DULoxetine Med 11/21/20 09:00 Ordered 60 mg PO DAILY Dextrose 5%-0.9% NaCl [Dextrose 5%-Normal Saline] 1,000 Med 11/20/20 09:30 Active ml IV ASDIRECTED Enoxaparin [Lovenox] Med 11/21/20 09:00 Ordered 30 mg SUBCUT DAILY LORazepam [Ativan] Med 11/20/20 13:41 Ordered 1 mg PO BID PRN Multivitamin [Multi-Vitamin Daily] Med 11/21/20 09:00 Ordered 1 each PO DAILY Ondansetron [Zofran ODT] Med 11/20/20 13:50 Ordered 4 mg PO Q4H PRN Ondansetron [Zofran] Med 11/20/20 13:59 Ordered 4 mg IV Q4H PRN Sodium Chloride 0.9% [Normal Saline] 1,000 ml Med 11/20/20 14:00 Ordered IV ASDIRECTED Temazepam [Restoril] Med 11/20/20 13:59 Ordered 7.5 mg PO BEDTIME PRN cefTRIAXone [Rocephin] 2 gm Med 11/20/20 13:30 Active Sodium Chloride 0.9% [Normal Saline] 100 ml IV Q24H lisinopriL [Prinivil] Med 11/21/20 09:00 Ordered 5 mg PO DAILY metFORMIN Med 11/20/20 21:00 Ordered 500 mg PO BID VTE Mechanical Contraindications [AST] Per Unit Routine Oth 11/20/20 13:50 Ordered Resuscitation Status Routine Resus Stat 11/20/20 13:43 Ordered Medication Orders Acetaminophen (Acetaminophen 325 Mg Tab) 650 mg PO Q4H PRN PRN Reason: Pain (Mild 1-3)/fever Aspirin (Aspirin 81 Mg Tab.Ec) 81 mg PO DAILY [facility] Cholecalciferol (Cholecalciferol (Vitamin D3) 25 Mcg Tab) 50 mcg PO DAILY [facility] Duloxetine HCl (Duloxetine 30 Mg Cap) 60 mg PO DAILY [facility] Enoxaparin Sodium (Enoxaparin 30 Mg/0.3 Ml Syringe) 30 mg SUBCUT DAILY [facility] Dextrose/Sodium Chloride (Dextrose 5%-Normal Saline) 1,000 mls @ 100 mls/hr IV ASDIRECTED [facility] Last Admin: 11/20/20 09:50 Dose: 100 mls/hr Documented by: JORDYN Ceftriaxone Sodium 2 gm/ (Sodium Chloride) 100 mls @ 200 mls/hr IV Q24H [facility] Sodium Chloride (Normal Saline) 1,000 mls @ 75 mls/hr IV ASDIRECTED [facility] Lisinopril (Lisinopril 5 Mg Tab) 5 mg PO DAILY [facility] Lorazepam (Lorazepam 1 Mg Tab) 1 mg PO BID PRN PRN Reason: Agitation Metformin HCl (Metformin 500 Mg Tab) 500 mg PO BIDMEALS [facility] Multivitamins/Minerals/Vitamin C (Multivitamin Tab) 1 tab PO DAILY [facility] Ondansetron HCl (Ondansetron 4 Mg Tab.Dis) 4 mg PO Q4H PRN PRN Reason: nausea, able to take PO Ondansetron HCl (Ondansetron 4 Mg/2 Ml Sdv) 4 mg IV Q4H PRN PRN Reason: Nausea/Vomiting Assessment/Plan Comment:: The patient is a 75-year-old lady who has been admitted to observation for IV treatment of her urinary tract infection. She has been ordered to receive 2 g of Rocephin IV. Cultures have been taken. The patient will also be kept on appropriate carb constant or ADA diet. Accu-Cheks 3 times a day with meals. Insulin low-dose sliding scale. The patient will also be given DVT prophylaxis with the use of 30 mg of Lovenox subcutaneous daily. It is anticipated that the patient should be able to return to nursing center likely tomorrow. - Mortality Measure Prognosis:: Good
[2020-11-20] MEDS: LORazepam 1 MG Tab PO PRN (15:49)
[2020-11-20] MEDS: metFORMIN 500 MG Tab PO SCH (16:14)
[2020-11-20] MEDS ORDERED: Insulin Regular, Human 100 Units/ML 3 ML Vial SUBCUT SCH (19:00)
[2020-11-20] MEDS ORDERED: Insulin Lispro 100 UNIT/ML 10 ML Vial SUBCUT SCH (19:00)
[2020-11-20] MEDS ORDERED: Insulin Glarg,Human.Rec.Analog 100 Unit/ML SUBCUT SCH (21:00)
[2020-11-21] MEDS ORDERED: Insulin Glarg,Human.Rec.Analog 100 Unit/ML SUBCUT SCH (06:00)
[2020-11-21] MEDS ORDERED: Magnesium Sulfate/Water 2 GM in Premix Bag 1 BAG IV ONE (06:52)
[2020-11-21] MEDS: metFORMIN 500 MG Tab PO SCH (07:18)
[2020-11-21] MEDS: Insulin Lispro 100 UNIT/ML 10 ML Vial SUBCUT SCH ×2 (07:18→11:08)
--- NOTE | 2020-11-21 08:43 | PCM.DCSUM1 ---
Discharge Summary - Hospital Course HPI Initial Comments: The patient was admitted secondary to hypoglycemic episodes at long term. Diagnosis: Stroke: No - Discharge Data Discharge Date: 11/21/20 Discharge Disposition: DC/Tfer to SNF 03 Condition: Fair - Referral to Home Health Primary Care Physician: Richard Rowley MD - Discharge Diagnosis/Problem(s) (1) UTI (urinary tract infection) SNOMED Code(s): 30649449 ICD Code: N39.0 - URINARY TRACT INFECTION, SITE NOT SPECIFIED Status: Resolved Priority: High Qualifiers: Urinary tract infection type: acute cystitis Hematuria presence: with hematuria Qualified Code(s): N30.01 - Acute cystitis with hematuria (2) Dementia SNOMED Code(s): 51396127 ICD Code: F03.90 - UNSPECIFIED DEMENTIA WITHOUT BEHAVIORAL DISTURBANCE Status: Chronic Priority: High Qualifiers: Dementia type: unspecified type Dementia behavioral disturbance: without behavioral disturbance Qualified Code(s): F03.90 - Unspecified dementia without behavioral disturbance (3) Hypoglycemia SNOMED Code(s): 862274382 ICD Code: E16.2 - HYPOGLYCEMIA, UNSPECIFIED Status: Acute Priority: High (4) Type 2 diabetes mellitus SNOMED Code(s): 15220303 ICD Code: E11.9 - TYPE 2 DIABETES MELLITUS WITHOUT COMPLICATIONS Status: Chronic Priority: Medium Qualifiers: Diabetes mellitus assisted insulin use: with medical terminologist use Diabetes mellitus complication status: with circulatory complication Diabetes mellitus complication detail: with other circulatory complications Qualified Code(s): E11.59 - Type 2 diabetes mellitus with other circulatory complications; 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 She is a resident of [facility] and was found to be unresponsive. Patient also had been hypoglycemic and she was resuscitated in the emergency department. The patient is on insulin as well as on Metformin. Incidentally the patient was also found to have an urinary tract infection. She had been admitted to observation. The patient also has underlying dementia. The patient has been minimally confused during hospitalization. The patient also has a history of mildly elevated troponins and these had remain plateaued during her hospitalization. Through the course of hospitalization the patient did have episodes of hypoglycemia which were treated with carbohydrates. It is likely that the patient's unresponsiveness had been secondary to the patient's hypoglycemic excursions. The patient's long-acting insulin had to be held on several occasions secondary to her hypoglycemic episodes. The patient's medications were adjusted and her Lantus had been dropped to 10 units daily in the morning. The patient will continue on her other antidiabetic medications. The patient had recovered sufficiently and she was back at her baseline. The patient also had been prescribed ciprofloxacin 500 mg p.o. twice daily. The patient should also have her typical diabetic diet as tolerated. She is also to have activity as tolerated. The patient has been released from observation hospitalization with the recommendations listed above. - Patient Instructions Diet: Diabetic Diet, Mechanical Soft Activity: As Tolerated - Discharge Plan *PRESCRIPTION DRUG MONITORING PROGRAM REVIEWED*: No *COPY OF PRESCRIPTION DRUG MONITORING REPORT IN PATIENT YINA: No Prescriptions/Med Rec: Ciprofloxacin HCl [Cipro] 500 mg PO BID #4 tablet Insulin Glarg,Human.Rec.Analog [Lantus] 10 unit SUBCUT ACBREAKFAST #2 vial Home Medications: Home Meds Lisinopril 5 mg PO DAILY 02/16/18 [History] metFORMIN [Glucophage XR] 500 mg PO BID #60 tab.er 02/16/18 [Rx] Aspirin [Aspirin EC] 81 mg PO DAILY 11/20/20 [History] Cholecalciferol (Vitamin D3) [Vitamin D3] 2,000 unit PO DAILY 11/20/20 [History] DULoxetine HCl [Cymbalta] 60 mg PO DAILY 11/20/20 [History] Insulin Lispro [Humalog Kwikpen U-100] 4 unit SQ TIDAC 11/20/20 [History] LORazepam [Ativan] 1 mg PO BID PRN 11/20/20 [History] Multivitamin [Multi-Vitamin Daily] 1 each PO DAILY 11/20/20 [History] Sennosides/Docusate Sodium [Senna Plus 8.6-50 mg Tablet] 1 each PO BID 11/20/20 [History] Ciprofloxacin HCl [Cipro] 500 mg PO BID #4 tablet 11/21/20 [Rx] DULoxetine [Cymbalta] 60 mg PO DAILY cap 11/21/20 [Rx] Insulin Glarg,Human.Rec.Analog [Lantus] 10 unit SUBCUT ACBREAKFAST #2 vial 11/21/20 [Rx] Oxygen Therapy Mode: Room Air Referrals: Richard Rowley MD [Primary Care Provider] - (Make an appointment to see PCP in 7-10 days.) - Discharge Summary/Plan Comment DC Time >30 min.: Yes - General Info Date of Service: 11/21/20 Admission Dx/Problem (Free Text: Admission Diagnosis/Problem Admission Diagnosis/Problem Urinary tract infection Subjective Update: The patient is somewhat confused. She is awake but not oriented. Functional Status: Reports: Pain Controlled, Tolerating Diet - Review of Systems General: Reports: No Symptoms HEENT: Reports: No Symptoms Pulmonary: Reports: No Symptoms Cardiovascular: Reports: No Symptoms Gastrointestinal: Reports: No Symptoms Genitourinary: Reports: No Symptoms Musculoskeletal: Reports: No Symptoms Skin: Reports: No Symptoms Neurological: Reports: No Symptoms Psychiatric: Reports: No Symptoms - Patient Data Vitals - Most Recent: Last Vital Signs Temp 37.0 C 11/21/20 07:34 Pulse 85 11/21/20 07:34 Resp 14 11/21/20 07:34 BP 141/98 H 11/21/20 07:34 Pulse Ox 96 11/21/20 07:34 Weight - Most Recent: 74.026 kg I&O - Last 24 hours: Intake & Output 11/20/20 11/21/20 11/21/20 22:59 06:59 14:59 Intake Total 300 1300 Balance 300 1300 Lab Results - Last 24 hrs: Laboratory Results - last 24 hr 11/20/20 11/20/20 11/20/20 Range/Units 09:14 09:40 09:40 WBC 12.27 H (3.98-10.04) K/mm3 RBC 4.18 (3.98-5.22) M/mm3 Hgb 12.5 (11.2-15.7) gm/dl Hct 38.2 (34.1-44.9) % MCV 91.4 D (79.4-94.8) fl MCH 29.9 (25.6-32.2) pg MCHC 32.7 (32.2-35.5) g/dl RDW Std Deviation 41.5 (36.4-46.3) fL Plt Count 303 D (182-369) K/mm3 MPV 9.3 L (9.4-12.3) fl Neut % (Auto) 81.6 H (34.0-71.1) % Lymph % (Auto) 11.2 L (19.3-51.7) % Stanly % (Auto) 5.4 (4.7-12.5) % Eos % (Auto) 1.4 (0.7-5.8) Baso % (Auto) 0.2 (0.1-1.2) % Neut # (Auto) 10.01 H (1.56-6.13) K/mm3 Lymph # (Auto) 1.38 (1.18-3.74) K/mm3 Stanly # (Auto) 0.66 H (0.24-0.36) K/mm3 Eos # (Auto) 0.17 (0.04-0.36) K/mm3 Baso # (Auto) 0.03 (0.01-0.08) K/mm3 Manual Slide Review Abnormal smear Sodium 144 (136-145) mEq/L Potassium 4.1 (3.5-5.1) mEq/L Chloride 105 (98-107) mEq/L Carbon Dioxide 32 (21-32) mEq/L Anion Gap 11.1 (5-15) BUN 15 (7-18) mg/dL Creatinine 0.8 (0.55-1.02) mg/dL Est Cr Clr Drug Dosing TNP Estimated GFR (MDRD) > 60 (>60) mL/min BUN/Creatinine Ratio 18.8 H (14-18) Glucose 75 (70-99) mg/dL POC Glucose 78 (70-99) mg/dL Calcium 9.0 (8.5-10.1) mg/dL Magnesium (1.8-2.4) mg/dL Total Bilirubin 0.2 (0.2-1.0) mg/dL AST 18 (15-37) U/L ALT 19 (14-59) U/L Alkaline Phosphatase 67 (46-116) U/L Troponin I 0.074 H* (0.00-0.056) ng/mL Total Protein 6.5 (6.4-8.2) g/dl Albumin 2.8 L (3.4-5.0) g/dl Globulin 3.7 gm/dL Albumin/Globulin Ratio 0.8 L (1-2) Urine Color (Yellow) Urine Appearance (Clear) Urine pH (5.0-8.0) Ur Specific Dewitt (1.005-1.030) Urine Protein (Negative) Urine Glucose (UA) (Negative) Urine Ketones (Negative) Urine Occult Blood (Negative) Urine Nitrite (Negative) Urine Bilirubin (Negative) Urine Urobilinogen (0.2-1.0) Ur Leukocyte Esterase (Negative) Urine RBC (0-5) /hpf Urine WBC (0-5) /hpf Urine WBC Clumps (NOT SEEN) /hpf Ur Epithelial Cells (0-5) /hpf Urine Bacteria (FEW) /hpf Urine Mucus (FEW) /hpf SARS-CoV-2 RNA (DREA) (NEGATIVE) MRSA (PCR) 11/20/20 11/20/20 11/20/20 Range/Units 10:40 11:31 11:40 WBC (3.98-10.04) K/mm3 RBC (3.98-5.22) M/mm3 Hgb (11.2-15.7) gm/dl Hct (34.1-44.9) % MCV (79.4-94.8) fl MCH (25.6-32.2) pg MCHC (32.2-35.5) g/dl RDW Std Deviation (36.4-46.3) fL Plt Count (182-369) K/mm3 MPV (9.4-12.3) fl Neut % (Auto) (34.0-71.1) % Lymph % (Auto) (19.3-51.7) % Stanly % (Auto) (4.7-12.5) % Eos % (Auto) (0.7-5.8) Baso % (Auto) (0.1-1.2) % Neut # (Auto) (1.56-6.13) K/mm3 Lymph # (Auto) (1.18-3.74) K/mm3 Stanly # (Auto) (0.24-0.36) K/mm3 Eos # (Auto) (0.04-0.36) K/mm3 Baso # (Auto) (0.01-0.08) K/mm3 Manual Slide Review Sodium (136-145) mEq/L Potassium (3.5-5.1) mEq/L Chloride (98-107) mEq/L Carbon Dioxide (21-32) mEq/L Anion Gap (5-15) BUN (7-18) mg/dL Creatinine (0.55-1.02) mg/dL Est Cr Clr Drug Dosing Estimated GFR (MDRD) (>60) mL/min BUN/Creatinine Ratio (14-18) Glucose (70-99) mg/dL POC Glucose 77 (70-99) mg/dL Calcium (8.5-10.1) mg/dL Magnesium (1.8-2.4) mg/dL Total Bilirubin (0.2-1.0) mg/dL AST (15-37) U/L ALT (14-59) U/L Alkaline Phosphatase (46-116) U/L Troponin I 0.065 H* (0.00-0.056) ng/mL Total Protein (6.4-8.2) g/dl Albumin (3.4-5.0) g/dl Globulin gm/dL Albumin/Globulin Ratio (1-2) Urine Color Yellow (Yellow) Urine Appearance Cloudy H (Clear) Urine pH 7.5 (5.0-8.0) Ur Specific Dewitt 1.020 (1.005-1.030) Urine Protein 2+ H (Negative) Urine Glucose (UA) Negative (Negative) Urine Ketones Negative (Negative) Urine Occult Blood 1+ H (Negative) Urine Nitrite Positive H (Negative) Urine Bilirubin Negative (Negative) Urine Urobilinogen 0.2 (0.2-1.0) Ur Leukocyte Esterase 3+ H (Negative) Urine RBC 0-5 (0-5) /hpf Urine WBC >100 H (0-5) /hpf Urine WBC Clumps Few (NOT SEEN) /hpf Ur Epithelial Cells 0-5 (0-5) /hpf Urine Bacteria Many H (FEW) /hpf Urine Mucus Not seen (FEW) /hpf SARS-CoV-2 RNA (DREA) (NEGATIVE) MRSA (PCR) 11/20/20 11/20/20 11/20/20 Range/Units 13:20 13:57 15:47 WBC (3.98-10.04) K/mm3 RBC (3.98-5.22) M/mm3 Hgb (11.2-15.7) gm/dl Hct (34.1-44.9) % MCV (79.4-94.8) fl MCH (25.6-32.2) pg MCHC (32.2-35.5) g/dl RDW Std Deviation (36.4-46.3) fL Plt Count (182-369) K/mm3 MPV (9.4-12.3) fl Neut % (Auto) (34.0-71.1) % Lymph % (Auto) (19.3-51.7) % Stanly % (Auto) (4.7-12.5) % Eos % (Auto) (0.7-5.8) Baso % (Auto) (0.1-1.2) % Neut # (Auto) (1.56-6.13) K/mm3 Lymph # (Auto) (1.18-3.74) K/mm3 Stanly # (Auto) (0.24-0.36) K/mm3 Eos # (Auto) (0.04-0.36) K/mm3 Baso # (Auto) (0.01-0.08) K/mm3 Manual Slide Review Sodium (136-145) mEq/L Potassium (3.5-5.1) mEq/L Chloride (98-107) mEq/L Carbon Dioxide (21-32) mEq/L Anion Gap (5-15) BUN (7-18) mg/dL Creatinine (0.55-1.02) mg/dL Est Cr Clr Drug Dosing Estimated GFR (MDRD) (>60) mL/min BUN/Creatinine Ratio (14-18) Glucose (70-99) mg/dL POC Glucose 155 H (70-99) mg/dL Calcium (8.5-10.1) mg/dL Magnesium (1.8-2.4) mg/dL Total Bilirubin (0.2-1.0) mg/dL AST (15-37) U/L ALT (14-59) U/L Alkaline Phosphatase (46-116) U/L Troponin I (0.00-0.056) ng/mL Total Protein (6.4-8.2) g/dl Albumin (3.4-5.0) g/dl Globulin gm/dL Albumin/Globulin Ratio (1-2) Urine Color (Yellow) Urine Appearance (Clear) Urine pH (5.0-8.0) Ur Specific Dewitt (1.005-1.030) Urine Protein (Negative) Urine Glucose (UA) (Negative) Urine Ketones (Negative) Urine Occult Blood (Negative) Urine Nitrite (Negative) Urine Bilirubin (Negative) Urine Urobilinogen (0.2-1.0) Ur Leukocyte Esterase (Negative) Urine RBC (0-5) /hpf Urine WBC (0-5) /hpf Urine WBC Clumps (NOT SEEN) /hpf Ur Epithelial Cells (0-5) /hpf Urine Bacteria (FEW) /hpf Urine Mucus (FEW) /hpf SARS-CoV-2 RNA (DREA) Negative (NEGATIVE) MRSA (PCR) Negative 11/21/20 11/21/20 11/21/20 Range/Units 05:30 05:30 06:33 WBC 6.16 (3.98-10.04) K/mm3 RBC 4.31 (3.98-5.22) M/mm3 Hgb 12.5 (11.2-15.7) gm/dl Hct 39.1 (34.1-44.9) % MCV 90.7 (79.4-94.8) fl MCH 29.0 (25.6-32.2) pg MCHC 32.0 L (32.2-35.5) g/dl RDW Std Deviation 41.0 (36.4-46.3) fL Plt Count 297 (182-369) K/mm3 MPV 9.4 (9.4-12.3) fl Neut % (Auto) 57.6 (34.0-71.1) % Lymph % (Auto) 31.0 (19.3-51.7) % Stanly % (Auto) 8.0 (4.7-12.5) % Eos % (Auto) 2.6 (0.7-5.8) Baso % (Auto) 0.6 (0.1-1.2) % Neut # (Auto) 3.55 (1.56-6.13) K/mm3 Lymph # (Auto) 1.91 (1.18-3.74) K/mm3 Stanly # (Auto) 0.49 H (0.24-0.36) K/mm3 Eos # (Auto) 0.16 (0.04-0.36) K/mm3 Baso # (Auto) 0.04 (0.01-0.08) K/mm3 Manual Slide Review Sodium 142 (136-145) mEq/L Potassium 3.7 (3.5-5.1) mEq/L Chloride 105 (98-107) mEq/L Carbon Dioxide 30 (21-32) mEq/L Anion Gap 10.7 (5-15) BUN 11 (7-18) mg/dL Creatinine 0.6 (0.55-1.02) mg/dL Est Cr Clr Drug Dosing 75.14 Estimated GFR (MDRD) > 60 (>60) mL/min BUN/Creatinine Ratio 18.3 H (14-18) Glucose 86 (70-99) mg/dL POC Glucose 68 L (70-99) mg/dL Calcium 8.7 (8.5-10.1) mg/dL Magnesium 1.4 L (1.8-2.4) mg/dL Total Bilirubin 0.2 (0.2-1.0) mg/dL AST 17 (15-37) U/L ALT 15 (14-59) U/L Alkaline Phosphatase 62 (46-116) U/L Troponin I (0.00-0.056) ng/mL Total Protein 6.3 L (6.4-8.2) g/dl Albumin 2.6 L (3.4-5.0) g/dl Globulin 3.7 gm/dL Albumin/Globulin Ratio 0.7 L (1-2) Urine Color (Yellow) Urine Appearance (Clear) Urine pH (5.0-8.0) Ur Specific Dewitt (1.005-1.030) Urine Protein (Negative) Urine Glucose (UA) (Negative) Urine Ketones (Negative) Urine Occult Blood (Negative) Urine Nitrite (Negative) Urine Bilirubin (Negative) Urine Urobilinogen (0.2-1.0) Ur Leukocyte Esterase (Negative) Urine RBC (0-5) /hpf Urine WBC (0-5) /hpf Urine WBC Clumps (NOT SEEN) /hpf Ur Epithelial Cells (0-5) /hpf Urine Bacteria (FEW) /hpf Urine Mucus (FEW) /hpf SARS-CoV-2 RNA (DREA) (NEGATIVE) MRSA (PCR) 11/21/20 Range/Units 06:56 WBC (3.98-10.04) K/mm3 RBC (3.98-5.22) M/mm3 Hgb (11.2-15.7) gm/dl Hct (34.1-44.9) % MCV (79.4-94.8) fl MCH (25.6-32.2) pg MCHC (32.2-35.5) g/dl RDW Std Deviation (36.4-46.3) fL Plt Count (182-369) K/mm3 MPV (9.4-12.3) fl Neut % (Auto) (34.0-71.1) % Lymph % (Auto) (19.3-51.7) % Stanly % (Auto) (4.7-12.5) % Eos % (Auto) (0.7-5.8) Baso % (Auto) (0.1-1.2) % Neut # (Auto) (1.56-6.13) K/mm3 Lymph # (Auto) (1.18-3.74) K/mm3 Stanly # (Auto) (0.24-0.36) K/mm3 Eos # (Auto) (0.04-0.36) K/mm3 Baso # (Auto) (0.01-0.08) K/mm3 Manual Slide Review Sodium (136-145) mEq/L Potassium (3.5-5.1) mEq/L Chloride (98-107) mEq/L Carbon Dioxide (21-32) mEq/L Anion Gap (5-15) BUN (7-18) mg/dL Creatinine (0.55-1.02) mg/dL Est Cr Clr Drug Dosing Estimated GFR (MDRD) (>60) mL/min BUN/Creatinine Ratio (14-18) Glucose (70-99) mg/dL POC Glucose 90 (70-99) mg/dL Calcium (8.5-10.1) mg/dL Magnesium (1.8-2.4) mg/dL Total Bilirubin (0.2-1.0) mg/dL AST (15-37) U/L ALT (14-59) U/L Alkaline Phosphatase (46-116) U/L Troponin I (0.00-0.056) ng/mL Total Protein (6.4-8.2) g/dl Albumin (3.4-5.0) g/dl Globulin gm/dL Albumin/Globulin Ratio (1-2) Urine Color (Yellow) Urine Appearance (Clear) Urine pH (5.0-8.0) Ur Specific Dewitt (1.005-1.030) Urine Protein (Negative) Urine Glucose (UA) (Negative) Urine Ketones (Negative) Urine Occult Blood (Negative) Urine Nitrite (Negative) Urine Bilirubin (Negative) Urine Urobilinogen (0.2-1.0) Ur Leukocyte Esterase (Negative) Urine RBC (0-5) /hpf Urine WBC (0-5) /hpf Urine WBC Clumps (NOT SEEN) /hpf Ur Epithelial Cells (0-5) /hpf Urine Bacteria (FEW) /hpf Urine Mucus (FEW) /hpf SARS-CoV-2 RNA (DREA) (NEGATIVE) MRSA (PCR) Med Orders - Current: Current Medications Acetaminophen (Acetaminophen 325 Mg Tab) 650 mg PO Q4H PRN PRN Reason: Pain (Mild 1-3)/fever Last Admin: 11/20/20 20:04 Dose: 650 mg Documented by: Aspirin (Aspirin 81 Mg Tab.Ec) 81 mg PO DAILY [facility] Cholecalciferol (Cholecalciferol (Vitamin D3) 25 Mcg Tab) 50 mcg PO DAILY [facility] Duloxetine HCl (Duloxetine 30 Mg Cap) 60 mg PO DAILY [facility] Enoxaparin Sodium (Enoxaparin 40 Mg/0.4 Ml Syringe) 40 mg SUBCUT DAILY [facility] Ceftriaxone Sodium 2 gm/ (Sodium Chloride) 100 mls @ 200 mls/hr IV Q24H [facility] Last Admin: 11/20/20 14:47 Dose: 200 mls/hr Documented by: Sodium Chloride (Normal Saline) 1,000 mls @ 75 mls/hr IV ASDIRECTED [facility] Last Admin: 11/20/20 20:06 Dose: 75 mls/hr Documented by: Magnesium Sulfate 2 gm/ Premix 50 mls @ 25 mls/hr IV ONETIME ONE Stop: 11/21/20 08:51 Last Admin: 11/21/20 07:05 Dose: 25 mls/hr Documented by: Insulin Glargine (Insulin Glarg,Human.Rec.Analog 100 Unit/Ml) 18 unit SUBCUT ACBREAKFAST [facility] Last Admin: 11/21/20 07:16 Dose: Not Given Documented by: Insulin Glargine (Insulin Glarg,Human.Rec.Analog 100 Unit/Ml) 5 unit SUBCUT BEDTIME [facility] Last Admin: 11/20/20 20:07 Dose: 5 units Documented by: Insulin Human Lispro (Insulin Lispro 100 Unit/Ml 10 Ml Vial) 0 unit SUBCUT TIDAC [facility]; Protocol Last Admin: 11/21/20 07:18 Dose: Not Given Documented by: Lisinopril (Lisinopril 5 Mg Tab) 5 mg PO DAILY [facility] Lorazepam (Lorazepam 1 Mg Tab) 1 mg PO BID PRN PRN Reason: Agitation Last Admin: 11/20/20 15:49 Dose: 1 mg Documented by: Metformin HCl (Metformin 500 Mg Tab) 500 mg PO BIDMEALS [facility] Last Admin: 11/21/20 07:18 Dose: Not Given Documented by: Multivitamins/Minerals/Vitamin C (Multivitamin Tab) 1 tab PO DAILY [facility] Ondansetron HCl (Ondansetron 4 Mg Tab.Dis) 4 mg PO Q4H PRN PRN Reason: nausea, able to take PO Ondansetron HCl (Ondansetron 4 Mg/2 Ml Sdv) 4 mg IV Q4H PRN PRN Reason: Nausea/Vomiting Temazepam (Temazepam 7.5 Mg Cap) 7.5 mg PO BEDTIME PRN PRN Reason: Sleep Last Admin: 11/20/20 20:04 Dose: 7.5 mg Documented by: Discontinued Medications Dextrose/Sodium Chloride (Dextrose 5%-Normal Saline) 1,000 mls @ 100 mls/hr IV ASDIRECTED [facility] Last Admin: 11/20/20 09:50 Dose: 100 mls/hr Documented by: Insulin Human Lispro (Insulin Lispro 100 Unit/Ml 10 Ml Vial) [facility]; Protocol Last Admin: 11/20/20 17:53 Dose: 2 units Documented by: Insulin Human Regular (Insulin Regular, Human 100 Units/Ml 3 Ml Vial) 0 unit SUBCUT [facility]; Protocol Non-Formulary Medication (Duloxetine Hcl) 60 mg PO DAILY [facility] - Exam Quality Assessment: Reports: Supplemental Oxygen General: Reports: Alert, Cooperative. Denies: Oriented HEENT: Reports: Pupils Equal, Pupils Reactive, EOMI, Mucous Membr. Moist/Sylvarena Neck: Reports: Supple, Trachea Midline Lungs: Reports: Clear to Auscultation, Normal Respiratory Effort Cardiovascular: Reports: Regular Rate, Regular Rhythm GI/Abdominal Exam: Normal Bowel Sounds, Soft, Non-Tender, No Distention (Female) Exam: Deferred Rectal (Female) Exam: Deferred Back Exam: Reports: Normal Inspection, Full Range of Motion Extremities: Normal Inspection, No Pedal Edema Skin: Reports: Warm, Dry, Intact Neurological: Reports: No New Focal Deficit Psy/Mental Status: Reports: Alert, Normal Affect *Q Meaningful Use (DIS) - VTE *Q VTE Mechanical Contraindications *Q: At Risk for Falls
[2020-11-21] MEDS ORDERED: Multivitamin Tab PO SCH (09:00)
[2020-11-21] MEDS ORDERED: Non-Formulary Medication 1 Each (Duloxetine Hcl 60 MG Capsule.Dr) PO SCH (09:00)
[2020-11-21] MEDS ORDERED: Cholecalciferol (Vitamin D3) 25 MCG Tab PO SCH (09:00)
[2020-11-21] MEDS ORDERED: Lisinopril 5 MG Tab PO SCH (09:00)
[2020-11-21] MEDS ORDERED: DULoxetine 30 MG Cap PO SCH (09:00)
[2020-11-21] MEDS ORDERED: Enoxaparin 40 MG/0.4 ML Syringe SUBCUT SCH (09:00)
[2020-11-21] MEDS ORDERED: Aspirin 81 MG Tab.EC PO SCH (09:00)
[2020-11-21] MEDS: LORazepam 1 MG Tab PO PRN (11:02)
== END 2020-11-21 11:38 ==
LOC: JD.ED 08:53 → SUPCPDRO 08:53 → JD.MS 13:48
PROVIDERS: ADMIT Internal Medicine; ATTEND Internal Medicine
DX: E11.649 Type 2 diabetes mellitus with hypoglycemia without coma (principal); N30.01 Acute cystitis with hematuria; F03.90 Unspecified dementia, unspecified severity, without behavioral disturbance, psychotic disturbance, mood disturbance, and anxiety; E78.00 Pure hypercholesterolemia, unspecified; I10 Essential (primary) hypertension; I25.2 Old myocardial infarction; Z95.0 Presence of cardiac pacemaker; Z79.899 Other long term (current) drug therapy; Z79.4 Long term (current) use of insulin; Z90.49 Acquired absence of other specified parts of digestive tract; Z87.891 Personal history of nicotine dependence; Z20.822 Contact with and (suspected) exposure to COVID-19
CPT/HCPCS: 36415; 71045; 80053; 81001; 82947; 83735; 84484; 85025; 87086; 87641; 93005; 96365; 96366; 96367; 96372; 99285; A9270; G0378; J0696; J1650; J1815; J3475; J7030; J7042; U0002; 93010; 99217; 99219; 99284

== ENCOUNTER 2021-08-16 20:11 | Inpatient (IN) | payer MEDICARE, MEDICAID ==
[2021-08-16] MEDS ORDERED: Sodium Chloride 0.9% 10 ML Syringe FLUSH PRN (20:31)
[2021-08-16] MEDS ORDERED: Sodium Chloride 0.9% 1,000 ML IV SCH (20:45)
[2021-08-16] MEDS ORDERED: Furosemide 40 MG/4 ML VIAL IVPUSH ONE (22:57)
[2021-08-16] MEDS ORDERED: cefTRIAXone 1 GM in Sodium Chloride 0.9% 100 ML IV ONE (22:57)
[2021-08-16] MEDS ORDERED: Azithromycin 500 MG in Sodium Chloride 0.9% 250 ML IV ONE (22:58)
[2021-08-17] MEDS ORDERED: REMDESIVIR 200 MG in Sodium Chloride 0.9% 250 ML IV ONE (09:30)
[2021-08-17] MEDS: Dexamethasone 10 MG/ML SDV IVPUSH SCH (11:05)
[2021-08-17] MEDS ORDERED: Acetaminophen 325 MG Tab PO PRN (11:16)
[2021-08-17] MEDS ORDERED: Magnesium Hydroxide 400 MG/5 ML Susp 30 ML Cup PO PRN (11:26)
[2021-08-17] MEDS ORDERED: Enoxaparin 30 MG/0.3 ML Syringe SUBCUT ONE (11:30)
[2021-08-17] MEDS ORDERED: Sodium Chloride 0.9% 10 ML Syringe FLUSH PRN (11:49)
[2021-08-17] MEDS ORDERED: Iopamidol 755 Mg/ML 100 ML Bottle IVPUSH ONE (11:49)
[2021-08-17] MEDS ORDERED: Sodium Chloride 0.9% 100 ML IV SCH (12:00)
[2021-08-17] MEDS: Metoprolol Succinate 25 MG Tab.ER PO SCH (12:17)
[2021-08-17] MEDS: Lisinopril 20 MG Tab PO SCH ×2 (12:18→21:03)
[2021-08-17] MEDS: Furosemide 20 MG Tab PO SCH (12:18)
[2021-08-17] MEDS: Famotidine 20 MG Tab PO SCH (12:18)
[2021-08-17] MEDS: Divalproex Sodium Delayed-Release 250 MG Tab.CR PO SCH ×2 (12:18→21:05)
[2021-08-17] MEDS: DULoxetine 30 MG Cap PO SCH (12:19)
[2021-08-17] MEDS ORDERED: Albuterol 0.083% 2.5 MG/3 ML Neb Soln NEB PRN (14:01)
[2021-08-17] MEDS: Apixaban 5 MG Tab PO SCH ×2 (15:18→21:03)
[2021-08-17] MEDS: Insulin Lispro 100 Unit/ML 3 ML KwikPen SUBCUT SCH ×2 (18:25→21:05)
[2021-08-17] MEDS ORDERED: Enoxaparin 30 MG/0.3 ML Syringe SUBCUT SCH (21:00)
[2021-08-17] MEDS: Insulin Glargine,Human Rec. Analog 100 Units/ML 3 ML Pen SUBCUT SCH (21:09)
[2021-08-18] MEDS: Insulin Lispro 100 Unit/ML 3 ML KwikPen SUBCUT SCH ×5 (06:37→22:00)
[2021-08-18] MEDS: Lisinopril 20 MG Tab PO SCH ×2 (08:15→21:01)
[2021-08-18] MEDS: Aspirin 81 MG Tab.EC PO SCH (08:15)
[2021-08-18] MEDS: Metoprolol Succinate 25 MG Tab.ER PO SCH (08:16)
[2021-08-18] MEDS: Famotidine 20 MG Tab PO SCH (08:16)
[2021-08-18] MEDS: Furosemide 20 MG Tab PO SCH (08:16)
[2021-08-18] MEDS: Apixaban 5 MG Tab PO SCH ×2 (08:16→21:01)
[2021-08-18] MEDS: Divalproex Sodium Delayed-Release 250 MG Tab.CR PO SCH ×2 (08:16→21:01)
[2021-08-18] MEDS: Cholecalciferol (Vitamin D3) 25 MCG Tab PO SCH (08:16)
[2021-08-18] MEDS: DULoxetine 30 MG Cap PO SCH (08:16)
[2021-08-18] MEDS: Insulin Glargine,Human Rec. Analog 100 Units/ML 3 ML Pen SUBCUT SCH ×2 (08:17→20:55)
[2021-08-18] MEDS: Dexamethasone 10 MG/ML SDV IVPUSH SCH (08:18)
[2021-08-18] MEDS: cefTRIAXone 1 GM in Sodium Chloride 0.9% 100 ML IV SCH (10:41)
[2021-08-18] MEDS: REMDESIVIR 100 MG in Sodium Chloride 0.9% 250 ML IV SCH (11:26)
[2021-08-18] MEDS ORDERED: Magnesium Sulfate/Water 4 GM in Premix Bag 1 BAG IV ONE ×2 (12:00→13:00)
[2021-08-18] MEDS: Azithromycin 500 MG in Sodium Chloride 0.9% 250 ML IV SCH (12:35)
[2021-08-19] MEDS: Insulin Lispro 100 Unit/ML 3 ML KwikPen SUBCUT SCH ×4 (07:39→21:34)
[2021-08-19] MEDS: Furosemide 20 MG Tab PO SCH (08:29)
[2021-08-19] MEDS: Metoprolol Succinate 25 MG Tab.ER PO SCH (08:29)
[2021-08-19] MEDS: Cholecalciferol (Vitamin D3) 25 MCG Tab PO SCH (08:30)
[2021-08-19] MEDS: Divalproex Sodium Delayed-Release 250 MG Tab.CR PO SCH ×2 (08:30→21:28)
[2021-08-19] MEDS: Dexamethasone 6 MG TABLET PO SCH (08:30)
[2021-08-19] MEDS: Famotidine 20 MG Tab PO SCH (08:30)
[2021-08-19] MEDS: Lisinopril 20 MG Tab PO SCH ×2 (08:30→21:29)
[2021-08-19] MEDS: Aspirin 81 MG Tab.EC PO SCH (08:30)
[2021-08-19] MEDS: DULoxetine 30 MG Cap PO SCH (08:31)
[2021-08-19] MEDS: Apixaban 5 MG Tab PO SCH ×2 (08:31→21:28)
[2021-08-19] MEDS: Insulin Glargine,Human Rec. Analog 100 Units/ML 3 ML Pen SUBCUT SCH ×2 (08:34→21:29)
[2021-08-19] MEDS: cefTRIAXone 1 GM in Sodium Chloride 0.9% 100 ML IV SCH (10:34)
[2021-08-19] MEDS: REMDESIVIR 100 MG in Sodium Chloride 0.9% 250 ML IV SCH (11:21)
[2021-08-19] MEDS: Azithromycin 500 MG in Sodium Chloride 0.9% 250 ML IV SCH (12:31)
[2021-08-19] MEDS ORDERED: Furosemide 40 MG/4 ML VIAL IVPUSH ONE (17:15)
[2021-08-20] MEDS: Insulin Lispro 100 Unit/ML 3 ML KwikPen SUBCUT SCH ×4 (08:34→21:14)
[2021-08-20] MEDS: Furosemide 20 MG Tab PO SCH (08:35)
[2021-08-20] MEDS: Cholecalciferol (Vitamin D3) 25 MCG Tab PO SCH (08:35)
[2021-08-20] MEDS: Famotidine 20 MG Tab PO SCH (08:36)
[2021-08-20] MEDS: Divalproex Sodium Delayed-Release 250 MG Tab.CR PO SCH ×3 (08:36→21:21)
[2021-08-20] MEDS: Aspirin 81 MG Tab.EC PO SCH (08:36)
[2021-08-20] MEDS: Metoprolol Succinate 25 MG Tab.ER PO SCH (08:36)
[2021-08-20] MEDS: DULoxetine 30 MG Cap PO SCH (08:37)
[2021-08-20] MEDS: Apixaban 5 MG Tab PO SCH ×3 (08:37→21:21)
[2021-08-20] MEDS: Dexamethasone 6 MG TABLET PO SCH (08:38)
[2021-08-20] MEDS: Lisinopril 20 MG Tab PO SCH ×3 (08:38→21:22)
[2021-08-20] MEDS: Insulin Glargine,Human Rec. Analog 100 Units/ML 3 ML Pen SUBCUT SCH ×2 (08:39→21:14)
[2021-08-20] MEDS: cefTRIAXone 1 GM in Sodium Chloride 0.9% 100 ML IV SCH (09:47)
[2021-08-20] MEDS: REMDESIVIR 100 MG in Sodium Chloride 0.9% 250 ML IV SCH (10:45)
[2021-08-20] MEDS ORDERED: Bisacodyl 10 MG Supp RECTAL ONE (11:00)
[2021-08-20] MEDS: Azithromycin 500 MG in Sodium Chloride 0.9% 250 ML IV SCH (12:02)
[2021-08-20] MEDS ORDERED: Furosemide 20 MG/2 ML VIAL IVPUSH ONE (13:47)
[2021-08-21] MEDS: Insulin Lispro 100 Unit/ML 3 ML KwikPen SUBCUT SCH ×4 (07:50→21:11)
[2021-08-21] MEDS: Aspirin 81 MG Tab.EC PO SCH (09:11)
[2021-08-21] MEDS: Metoprolol Succinate 25 MG Tab.ER PO SCH (09:12)
[2021-08-21] MEDS: Apixaban 5 MG Tab PO SCH ×2 (09:12→21:11)
[2021-08-21] MEDS: Furosemide 20 MG Tab PO SCH (09:13)
[2021-08-21] MEDS: DULoxetine 30 MG Cap PO SCH (09:13)
[2021-08-21] MEDS: Cholecalciferol (Vitamin D3) 25 MCG Tab PO SCH (09:14)
[2021-08-21] MEDS: Dexamethasone 6 MG TABLET PO SCH (09:14)
[2021-08-21] MEDS: Divalproex Sodium Delayed-Release 250 MG Tab.CR PO SCH ×2 (09:15→21:11)
[2021-08-21] MEDS: Lisinopril 20 MG Tab PO SCH ×2 (09:16→21:11)
[2021-08-21] MEDS: Famotidine 20 MG Tab PO SCH (09:16)
[2021-08-21] MEDS: Insulin Glargine,Human Rec. Analog 100 Units/ML 3 ML Pen SUBCUT SCH ×2 (09:17→21:12)
[2021-08-21] MEDS: cefTRIAXone 1 GM in Sodium Chloride 0.9% 100 ML IV SCH (09:36)
[2021-08-21] MEDS: REMDESIVIR 100 MG in Sodium Chloride 0.9% 250 ML IV SCH (11:32)
[2021-08-21] MEDS: Azithromycin 500 MG in Sodium Chloride 0.9% 250 ML IV SCH (13:23)
[2021-08-22] MEDS: Insulin Lispro 100 Unit/ML 3 ML KwikPen SUBCUT SCH ×2 (08:33→12:16)
[2021-08-22] MEDS: Metoprolol Succinate 25 MG Tab.ER PO SCH (08:39)
[2021-08-22] MEDS: Lisinopril 20 MG Tab PO SCH (08:41)
[2021-08-22] MEDS: Furosemide 20 MG Tab PO SCH (08:41)
[2021-08-22] MEDS: Apixaban 5 MG Tab PO SCH (08:42)
[2021-08-22] MEDS: Dexamethasone 6 MG TABLET PO SCH (08:42)
[2021-08-22] MEDS: Famotidine 20 MG Tab PO SCH (08:43)
[2021-08-22] MEDS: Divalproex Sodium Delayed-Release 250 MG Tab.CR PO SCH (08:43)
[2021-08-22] MEDS: Aspirin 81 MG Tab.EC PO SCH (08:43)
[2021-08-22] MEDS: Insulin Glargine,Human Rec. Analog 100 Units/ML 3 ML Pen SUBCUT SCH (08:51)
[2021-08-22] MEDS: DULoxetine 30 MG Cap PO SCH (08:54)
[2021-08-22] MEDS: Cholecalciferol (Vitamin D3) 25 MCG Tab PO SCH (08:55)
[2021-08-22] MEDS: cefTRIAXone 1 GM in Sodium Chloride 0.9% 100 ML IV SCH (12:08)
[2021-08-22] MEDS: Azithromycin 500 MG in Sodium Chloride 0.9% 250 ML IV SCH (12:08)
== END 2021-08-22 13:10 | DRG 177 ==
LOC: JD.ED 20:11 → JD.MS 23:34
PROVIDERS: ADMIT Pediatrics; ATTEND Pediatrics
PROC: XW033E5 Introduction of Remdesivir Anti-infective into Peripheral Vein, Percutaneous Approach, New Technology Group 5 (ICD-10-PCS; principal; 2021-08-17)
PROC: 3E0333Z Introduction of Anti-inflammatory into Peripheral Vein, Percutaneous Approach (ICD-10-PCS; 2021-08-17)
PROC: 3E0DX3Z Introduction of Anti-inflammatory into Mouth and Pharynx, External Approach (ICD-10-PCS; 2021-08-19)
DX: U07.1 COVID-19 (principal); J18.9 Pneumonia, unspecified organism; J12.82 Pneumonia due to coronavirus disease 2019; I26.94 Multiple subsegmental thrombotic pulmonary emboli without acute cor pulmonale; N39.0 Urinary tract infection, site not specified; R31.9 Hematuria, unspecified; R41.82 Altered mental status, unspecified; I50.9 Heart failure, unspecified; G30.9 Alzheimer's disease, unspecified; I10 Essential (primary) hypertension; I73.9 Peripheral vascular disease, unspecified; F02.80 Dementia in other diseases classified elsewhere, unspecified severity, without behavioral disturbance, psychotic disturbance, mood disturbance, and anxiety; R09.02 Hypoxemia; E78.00 Pure hypercholesterolemia, unspecified; I11.0 Hypertensive heart disease with heart failure; K59.09 Other constipation; E11.51 Type 2 diabetes mellitus with diabetic peripheral angiopathy without gangrene; M19.90 Unspecified osteoarthritis, unspecified site; M54.9 Dorsalgia, unspecified; E11.9 Type 2 diabetes mellitus without complications; G89.29 Other chronic pain; F32.A Depression, unspecified; Z79.4 Long term (current) use of insulin; Z79.82 Long term (current) use of aspirin; I25.2 Old myocardial infarction; Z95.0 Presence of cardiac pacemaker; Z95.5 Presence of coronary angioplasty implant and graft; Z90.49 Acquired absence of other specified parts of digestive tract; Z79.899 Other long term (current) drug therapy
CPT/HCPCS: 36415; 36600; 70450; 71045; 80053; 81001; 82803; 82947; 83605; 83880; 84484; 85025; 86140; 87040; 87086; 93005; 94762; 96365; 96375; 99285; J0696; J1940; J7030; U0002; 71275; 71275-26; 82728; 83615; 83735; 84145; 85379; 87641; 97162-GP; A9270-GY; J0456; J1100; J1650; J1815; J1815-GY; J3475; J7050; J8540; Q9967

== ENCOUNTER 2021-08-24 11:59 | Inpatient (IN) | payer MEDICARE, MEDICAID ==
[2021-08-24] MEDS ORDERED: Diltiazem 50 MG/10 ML SDV IVPUSH STA (12:52)
[2021-08-24] MEDS ORDERED: Norepinephrine 4 MG in Dextrose 5% in Water 246 ML IV SCH ×2 (13:45)
[2021-08-24] MEDS ORDERED: Norepinephrine 4 MG/4 ML SDV ONE (13:47)
[2021-08-24] MEDS ORDERED: Dextrose 5% in Water 250 ML ONE (13:47)
[2021-08-24] MEDS ORDERED: Piperacillin/Tazobactam 4.5 GM in Sodium Chloride 0.9% 100 ML IV ONE ×2 (14:02→16:40)
[2021-08-24] MEDS ORDERED: Sodium Chloride 0.9% 10 ML Syringe FLUSH ONE (16:13)
[2021-08-24] MEDS ORDERED: Iopamidol 755 Mg/ML 100 ML Bottle IVPUSH ONE (16:13)
[2021-08-24] MEDS ORDERED: Sodium Chloride 0.9% 100 ML IV SCH (16:15)
[2021-08-24] MEDS ORDERED: Ondansetron 4 MG/2 ML SDV IV PRN (16:32)
[2021-08-24] MEDS ORDERED: Albuterol/Ipratropium 3.0-0.5 MG/3 ML Neb Soln NEB PRN (16:32)
[2021-08-24] MEDS ORDERED: Heparin Sodium 5,000 Units/ML Vial SUBCUT SCH (18:00)
[2021-08-24] MEDS: Sodium Chloride 0.9% 1,000 ML IV SCH (18:50)
[2021-08-24] MEDS: Insulin Lispro 100 Unit/ML 3 ML KwikPen SUBCUT SCH ×2 (19:04→20:39)
[2021-08-24] MEDS: Heparin Sodium 5,000 Units/ML Vial SUBCUT SCH (20:34)
[2021-08-24] MEDS ORDERED: Labetalol 100 MG/20 ML MDV IVPUSH SCH (21:00)
[2021-08-24] MEDS: Piperacillin/Tazobactam 4.5 GM in Sodium Chloride 0.9% 100 ML IV SCH (22:30)
[2021-08-25] MEDS ORDERED: Metoprolol Tartrate 5 MG/5 ML SDV IVPUSH PRN (03:12)
[2021-08-25] MEDS: Sodium Chloride 0.9% 1,000 ML IV SCH (05:29)
[2021-08-25] MEDS: Heparin Sodium 5,000 Units/ML Vial SUBCUT SCH (05:29)
[2021-08-25] MEDS: Piperacillin/Tazobactam 4.5 GM in Sodium Chloride 0.9% 100 ML IV SCH (05:30)
[2021-08-25] MEDS: Morphine 2 MG/ML SYRINGE IVPUSH PRN ×2 (08:39→11:08)
[2021-08-25] MEDS: Insulin Lispro 100 Unit/ML 3 ML KwikPen SUBCUT SCH (08:54)
== END 2021-08-25 12:30 | disposition expired | DRG 871 ==
LOC: JD.ED 11:59 → JD.MS 16:33
PROVIDERS: ADMIT Internal Medicine; ATTEND Internal Medicine
PROC: 3E033XZ Introduction of Vasopressor into Peripheral Vein, Percutaneous Approach (ICD-10-PCS; principal; 2021-08-24)
DX: J90 Pleural effusion, not elsewhere classified (principal); R77.8 Other specified abnormalities of plasma proteins; A41.9 Sepsis, unspecified organism; R09.02 Hypoxemia; J96.21 Acute and chronic respiratory failure with hypoxia; J96.22 Acute and chronic respiratory failure with hypercapnia; I21.4 Non-ST elevation (NSTEMI) myocardial infarction; U07.1 COVID-19; I73.9 Peripheral vascular disease, unspecified; I47.2 Ventricular tachycardia; R65.20 Severe sepsis without septic shock; Z51.5 Encounter for palliative care; Z66 Do not resuscitate; I11.0 Hypertensive heart disease with heart failure; E86.0 Dehydration; N28.9 Disorder of kidney and ureter, unspecified; I50.9 Heart failure, unspecified; E78.00 Pure hypercholesterolemia, unspecified; E11.51 Type 2 diabetes mellitus with diabetic peripheral angiopathy without gangrene; G30.9 Alzheimer's disease, unspecified; F02.80 Dementia in other diseases classified elsewhere, unspecified severity, without behavioral disturbance, psychotic disturbance, mood disturbance, and anxiety; K59.09 Other constipation; F32.A Depression, unspecified; R79.89 Other specified abnormal findings of blood chemistry; M19.90 Unspecified osteoarthritis, unspecified site; R00.0 Tachycardia, unspecified; M54.9 Dorsalgia, unspecified; G89.29 Other chronic pain; E11.65 Type 2 diabetes mellitus with hyperglycemia; R74.02 Elevation of levels of lactic acid dehydrogenase [LDH]; D75.839 Thrombocytosis, unspecified; I95.9 Hypotension, unspecified; Z79.82 Long term (current) use of aspirin; Z79.4 Long term (current) use of insulin; Z79.899 Other long term (current) drug therapy; I25.2 Old myocardial infarction; Z95.5 Presence of coronary angioplasty implant and graft; Z95.0 Presence of cardiac pacemaker; Z87.440 Personal history of urinary (tract) infections; Z90.49 Acquired absence of other specified parts of digestive tract; Z98.890 Other specified postprocedural states
CPT/HCPCS: 36415; 36600; 51702; 71045; 71275; 80053; 81001; 82803; 83605 ×2; 83735; 83880; 84484; 85007; 85027; 85379; 85610; 85730; 86140; 87040 ×2; 87086; 93005; 96365; 96367; 96368; 96375; 99285; J2543; J3370; J3490; J7050; J7060; 82947; 85025; 93010; 94761; 94762; 99223; 99238; J1644; J1815; J2270; J7030; Q9967